=== PATIENT | male | born 1955 | race Caucasian/White ===

== ENCOUNTER → 2019-03-18 11:00 | Outpatient (CLI) | payer MEDICARE, OTHER, SELFPAY ==
--- NOTE | ~2019-03-18 | CT_ITS ---
EXAMINATION: CT lumbar spine wo con DATE: 03/18/2019 11:41 INDICATION: Low back pain. Lumbar scoliosis. TECHNIQUE: Computed tomography (CT) of the lumbar spine was performed without intravenous contrast. A utomated exposure control and iterative reconstruction technique were employed. The dose-length produ ct was 1199.63 mGy-cm. COMPARISON: CT lumbar spine 02/28/2017 FINDINGS: There is 20 degrees dextroscoliosis of lumbar spine. S1 is a transitional segment. There ar e changes of posterior fusion procedure from T11 to S1 and the bilateral iliac bones with pedicle scr ews and iliac bone screws. The right S1 screw enters the L5-S1 disc. There are laminectomies from L3 to L5. There is interbody fusion at L3-L4. There is severely decreased disc height at L2-L3 and L4-L5 . The following disc levels are specifically discussed: L1-L2: The disc is bulging. There is mild bilateral facet joint hypertrophy. There is mild bilateral neural foraminal stenosis. There is no central canal stenosis. L2-L3: The disc is bulging. There is mild bilateral facet joint hypertrophy. There is mild bilateral neural foraminal stenosis. There is mild central canal stenosis. L3-L4: There is moderate bilateral facet joint hypertrophy. There is mild right and moderate left fredi ral foraminal stenosis. There is mild central canal stenosis with posterior decompression. L4-L5: The disc is bulging. There is moderate right facet joint hypertrophy. There is moderate right neural foraminal stenosis. There is mild central canal stenosis with posterior decompression. L5-S1: The disc is bulging. There is moderate bilateral facet joint hypertrophy. There is mild bilate ral neural foraminal stenosis. There is mild central canal stenosis. IMPRESSION: 1. Severe lumbar spondylosis. 2. Posterior fusion procedure from T11 to the sacrum and iliac bones. 2. Lumbar dextroscoliosis. Reviewed, dictated and finalized at location A. [facility]
== END ==
PROVIDERS: PCP Internal Medicine
DX: M41.9 Scoliosis, unspecified (principal); M47.896 Other spondylosis, lumbar region; Z98.1 Arthrodesis status
CPT/HCPCS: 72131

== ENCOUNTER 2019-04-21 01:20 | Day surgery (SDC) | payer MEDICARE, OTHER, SELFPAY ==
[2019-04-16 14:45] VITALS: BMI 27.8
[2019-04-21 06:56] VITALS: BP 160/87; PULSE 74; RESP 6; TEMP 36.7; O2SAT 100
[2019-04-21] MEDS: LACTATED RINGERS 1,000 ML 150 ML IV CONT (07:15)
[2019-04-21] MEDS: AMPICILLIN 2 GM/NS 100 ML 2 GM/100 ML BAG IVPB (07:15)
--- NOTE | 2019-04-21 07:30 | WPDANESEPPF ---
Anes - Initial Pre Proc Eval Procedure: Operation Date: 04/21/19 08:00 Proposed Procedures p Colonoscopy - Ezekiel Key MD Date/Time: 04/21/19 07:30 Surgeon: Ezekiel Key MD Pre Op Diagnosis: change in bowel habits, abd pain Patient Data Age: 64 Gender: M Height: 5 ft 10 in Weight: 91.2 kg Last Vital Signs Temp 36.7 C 04/21/19 06:56 Pulse 74 04/21/19 06:56 Resp 6 L 04/21/19 06:56 BP 160/87 H 04/21/19 06:56 Pulse Ox 100 04/21/19 06:56 Allergies Allergy/AdvReac Type Severity Reaction Status Date / Time No Known Allergies Allergy Verified 04/21/19 06:56 Home Medications Medication Instructions Recorded Confirmed Type ezetimibe 10 mg tablet 10 mg PO DAILY #90 tablet 12/30/18 04/21/19 Rx gemfibrozil 600 mg tablet 600 mg PO BID #180 tablet 12/30/18 04/21/19 Rx aspirin 81 mg tablet,delayed 81 mg PO DAILY 01/01/19 04/21/19 History release folic acid 0.8 mg capsule 0.8 mg PO DAILY 01/01/19 04/21/19 History gabapentin 400 mg capsule 400 mg PO DAILY 01/01/19 04/21/19 History hydroxychloroquine 200 mg tablet 200 mg PO DAILY 01/01/19 04/21/19 History levothyroxine 25 mcg tablet 25 mcg PO DAILY 01/01/19 04/21/19 History methotrexate sodium 2.5 mg tablet 2.5 mg PO WEEKLY 01/01/19 04/21/19 History multivitamin 1 tablet PO DAILY 01/01/19 04/21/19 History nortriptyline 25 mg capsule 25 mg PO DAILY 01/01/19 04/21/19 History omeprazole 10 mg capsule,delayed 10 mg PO DAILY 01/01/19 04/21/19 History release sulfasalazine 500 mg tablet 0.5 gm PO DAILY 01/01/19 04/21/19 History trazodone 50 mg tablet 50 mg PO TID 01/01/19 04/21/19 History baclofen 10 mg tablet 10 mg PO DAILY 02/12/19 04/21/19 History tamsulosin 0.4 mg capsule 0.4 mg PO DAILY #90 cap 02/12/19 04/21/19 Rx diclofenac sodium 75 mg 75 mg PO BID #180 tablet 03/06/19 04/21/19 Rx tablet,delayed release Patient hx anesthesia problems: none Family hx anesthesia problems: none PMFSH Past Medical History Medical History (Updated 04/21/19 @ 07:31 by Osorio Ibarra MD) Acid reflux Depression HTN (hypertension) Hyperlipidemia Surgical History Surgical History History of carpal tunnel release R hand History of hernia surgery History of left knee replacement History of right knee joint replacement History of rotator cuff surgery Right History of spinal fusion L3-L5 x2 S1-S10 Family History Family History Sibling Family history of drug dependence Patient's sister is in good health Father Hypertension Cerebrovascular accident Grandparent Carcinoma of colon Mother Family history of malignant neoplasm of esophagus Other Family history of arthritis Social History Social History Smoking status: Never smoker Second hand tobacco smoke exposure: No Alcohol intake: current Gender identity (if verbalized by the patient): Female Anes - Eval Final PreProcedure Day of Procedure 04/21/19 07:30 Patient weight: overweight Heart: regular rate and rhythm Lungs: clear to auscultation Airway: Mallampati scale class 1 Neurological: alert and oriented Last oral intake: >/= 8 hours ASA classification: III Emergent: no Anesthetic plan: proceed Anesthesia type and monitoring: general GIVS and standard monitoring Informed Consent: The patient's anesthetic plan and its attendant risks and benefits were discussed with the patient/family/POA. Questions were solicited and answers provided to the satisfaction of the patient/family/POA.
--- NOTE | 2019-04-21 07:50 | WPDGICN ---
Assessment and Plan Additional Plan This is a 64-year-old white male patient seen in evaluation at the request of Dr. Arian Rose. Patient reports stomach ache worse over the last 2-3 months. Patient has history of ascending colon stricture identified 1 year ago. He subsequently had a lower GI that failed to identified the stricture. Patient has been treated for constipation for quite some time. After colonoscopy 1 year ago he did well with conservative therapy over the last 2-3 months has increasing lower abdominal pain. He continues to have lower abdominal cramping and constipation. He reports his stools are somewhat narrowing appearance ani feels bloated. Past medical history is significant for GE reflux, depression, hypertension, hyperlipidemia. Family history is significant his grandfather apparent had colon cancer. His mother had esophageal cancer. Current medications include baclofen, aspirin, diclofenac, ezetimibe, folic acid, gabapentin, gemfibrozil, hydrochloroquine, levothyroxine. Omeprazole, nortriptyline, sulfasalazine, tamsulosin, no known drug allergies. Physical exam reveals patient to be alert. Vital signs stable. HEENT exam unremarkable. Lungs are clear to auscultation percussion. Heart is without murmur extra sounds. Abdominal exam bowel sounds are present soft no obvious masses. Is not distended. He reports vague low abdominal discomfort. Impression 1. Abdominal pain, 2. Constipation. With change in bowel habits. 3. History of ascending colon stricture. Plan is for follow-up colonoscopy. Recent barium enema failed to confirm ascending colon stricture plan is to reassess this finding as well search for alteration in bowel habits change in bowel size and abdominal pain. Further recommendations will be given after endoscopy GI Consult Note Consult date/time: 04/21/19 07:50 HPI: Tyler Ferrara is a 64 year old male [facility] Past Medical History Medical History (Updated 04/21/19 @ 07:31 by Osorio Ibarra MD) Acid reflux Depression HTN (hypertension) Hyperlipidemia Surgical History Surgical History History of carpal tunnel release R hand History of hernia surgery History of left knee replacement History of right knee joint replacement History of rotator cuff surgery Right History of spinal fusion L3-L5 x2 S1-S10 Family History Family History Sibling Family history of drug dependence Patient's sister is in good health Father Hypertension Cerebrovascular accident Grandparent Carcinoma of colon Mother Family history of malignant neoplasm of esophagus Other Family history of arthritis Social History Social History Smoking status: Never smoker Second hand tobacco smoke exposure: No Alcohol intake: current Gender identity (if verbalized by the patient): Female Meds Home Medications and Allergies Home Medications Medication Instructions Recorded Confirmed Type ezetimibe 10 mg tablet 10 mg PO DAILY #90 tablet 12/30/18 04/21/19 Rx gemfibrozil 600 mg tablet 600 mg PO BID #180 tablet 12/30/18 04/21/19 Rx aspirin 81 mg tablet,delayed 81 mg PO DAILY 01/01/19 04/21/19 History release folic acid 0.8 mg capsule 0.8 mg PO DAILY 01/01/19 04/21/19 History gabapentin 400 mg capsule 400 mg PO DAILY 01/01/19 04/21/19 History hydroxychloroquine 200 mg tablet 200 mg PO DAILY 01/01/19 04/21/19 History levothyroxine 25 mcg tablet 25 mcg PO DAILY 01/01/19 04/21/19 History methotrexate sodium 2.5 mg tablet 2.5 mg PO WEEKLY 01/01/19 04/21/19 History multivitamin 1 tablet PO DAILY 01/01/19 04/21/19 History nortriptyline 25 mg capsule 25 mg PO DAILY 01/01/19 04/21/19 History omeprazole 10 mg capsule,delayed 10 mg PO DAILY 01/01/19 04/21/19 History release sulfasalazine 500 mg tablet 0
[2019-04-21 08:36] VITALS: BP 128/81; PULSE 71; RESP 15; O2SAT 97
[2019-04-21 08:46] VITALS: BP 139/89; PULSE 68; RESP 14; O2SAT 95
[2019-04-21 08:56] VITALS: BP 134/82; PULSE 64; RESP 18; O2SAT 99
== END 2019-04-21 09:17 | disposition home or self-care (01) ==
PROVIDERS: PCP Internal Medicine; Visit Provider Internal Medicine Gastroenterology
PROC: 0DJD8ZZ Inspection of Lower Intestinal Tract, Via Natural or Artificial Opening Endoscopic (ICD-10-PCS; CPT 45378; principal; 2019-04-21 08:00)
DX: K63.3 Ulcer of intestine (principal); K56.699 Other intestinal obstruction unspecified as to partial versus complete obstruction; K59.00 Constipation, unspecified; I10 Essential (primary) hypertension; E78.5 Hyperlipidemia, unspecified; K21.9 Gastro-esophageal reflux disease without esophagitis; F32.9 Major depressive disorder, single episode, unspecified; Z79.82 Long term (current) use of aspirin; Z98.1 Arthrodesis status
CPT/HCPCS: 45380; 88305; J0290; J2001; J2704; J7120

== ENCOUNTER → 2019-05-13 10:28 | Outpatient (CLI) | payer MEDICARE, OTHER, SELFPAY ==
--- NOTE | ~2019-05-13 | CT_ITS ---
EXAMINATION: CT abdomen pelvis w con EXAM DATE: 05/13/2019 11:23 INDICATION: Generalized abdominal pain and bloating. TECHNIQUE: Spiral CT of the abdomen and pelvis was performed following intravenous injection of 100 m L Omnipaque 350. Axial, coronal and sagittal images were reviewed. The dose-length product (DLP) fo r this examination was 845.61 mGy-cm. The exposure was tailored according to patient size (auto mA e xposure control), and iterative reconstruction (ASIR) was used as additional dose reduction technique . Comparison is made to prior examination from 10/09/2017. FINDINGS: The liver, spleen, adrenal glands and pancreas are unremarkable. Gallbladder is unremarkab le. No biliary obstruction. Portal and splenic veins are patent. Kidneys enhance symmetrically. T here is no hydronephrosis. The prostate is unremarkable. The bladder is unremarkable. There is no retroperitoneal or pelvic lymphadenopathy. There is mild scattered arteriosclerotic disease. The appendix is normal. The stomach and small bowel are unremarkable. There is moderate amount of c olonic stool. No free intraperitoneal gas. The heart is normal in size. There are no pericardial or pleural effusions. The lung bases are unremarkable. Approximately 1 cm left femoral neck sclero tic region is unchanged compared to prior study. There is thoracolumbar fusion hardware. IMPRESSION: 1. Moderate colonic stool. 2. No acute findings. Reviewed, dictated and finalized at location B.
[2019-05-13 11:08] LABS: Estimated Glomerular Filt Rate > 60
== END ==
DX: R10.84 Generalized abdominal pain (principal)
CPT/HCPCS: 36415; 74177; Q9967

== ENCOUNTER 2019-05-27 09:53 | Observation (INO) | payer MEDICARE, OTHER, SELFPAY ==
[2019-05-27] VITALS (32 sets, daily range): BP systolic 120–154; BP diastolic 54–98; PULSE 57–90; RESP 11–27; TEMP 36.1–36.9; O2SAT 98–100; BMI 30.9
--- NOTE | 2019-05-27 10:12 | PC.NURSE ---
PT STATES HAS HIS NORMAL 6 MONTH LAB WORK YESTERDAY. STATES LAST DRAW 6 MONTHS AGO WAS BORDERLINE NORMAL. HAS SEEN DR. HAWK IN THE PAST FOR STRICTURES. HAD COLONOSCOPY NOT TOO LONG AGO AND WAS NORMAL. PT NOTING DIZZINESS WHEN STANDING AND INCREASED SOB. PT NOTING DARK STOOLS AT TIMES. PT DENIES ABD PAIN AT THIS TIME. DOES C/O SOME TO RLQ FROM TIME TO TIME.
[2019-05-27 10:26] LABS: Basophils Percent Auto 0.6 % (0.2-1.2); Eosinophils Absolute Auto 0.2 K/mm3 (0-0.3); Hemoglobin 7.5 g/dL (14.0-18.0); Immature Granulocyte Absolute 0.03 K/mm3 (0.00-0.031); Immature Granulocyte Percent A 0.6 % (0-0.5); Lymphocytes Absolute Auto 0.63 K/mm3 (0.9-3.2); Lymphocytes Percent Auto 12.5 % (18.3-44.2); Mean Corpuscular HGB Conc 28.8 g/dl (32-36); Mean Corpuscular Hemoglobin 22.7 pg (26-34); Mean Corpuscular Volume 78.8 fl (80-100); Mean Platelet Volume 10.8 fl (7.4-10.4); Monocytes Absolute Auto 0.7 K/mm3 (0.1-0.6); Monocytes Percent Auto 12.9 % (2.6-8.5); Neutrophils Absolute Auto 3.6 K/mm3 (1.3-6.7); Neutrophils Percent Auto 70.4 % (45.5-73.1); Platelet Count Result 237 k/mm3 (150-375); Red Cell Distribution Width 19.4 % (11.5-14.5)
--- NOTE | 2019-05-27 10:28 | ED.RECABL ---
HPI - Recheck/Abnormal Lab/Rx General Chief Complaint: Recheck/Abnormal Lab/Rx Stated Complaint: LOW H/H Time Seen by Provider: 05/27/19 09:58 History of Present Illness HPI narrative: Patient is a 64-year-old male who presents ER with outpatient diagnosis of anemia. He had routine labs drawn and they came back with a low hemoglobin so he was sent here for further evaluation. Patient has history of rheumatoid arthritis and takes methotrexate weekly. Denies any history of GI bleed and has recently had a scope by Dr. Key. The scope was significant for a sending colon stricture that was biopsied and noncancerous. Patient reports that he has been having some dyspnea on exertion that has been slowly progressive over the course of months. He has had no chest pain or pressure. He also reports he is starting to get a little dizzy when he goes from sitting to standing. Reports normal oral intake. Related Data Home Medications Medication Instructions Recorded Confirmed aspirin 81 mg tablet,delayed 81 mg PO DAILY 01/01/19 04/21/19 release folic acid 0.8 mg capsule 0.8 mg PO DAILY 01/01/19 04/21/19 gabapentin 400 mg capsule 400 mg PO DAILY 01/01/19 04/21/19 hydroxychloroquine 200 mg tablet 200 mg PO DAILY 01/01/19 04/21/19 levothyroxine 25 mcg tablet 25 mcg PO DAILY 01/01/19 04/21/19 methotrexate sodium 2.5 mg tablet 2.5 mg PO WEEKLY 01/01/19 04/21/19 multivitamin 1 tablet PO DAILY 01/01/19 04/21/19 nortriptyline 25 mg capsule 25 mg PO DAILY 01/01/19 04/21/19 omeprazole 10 mg capsule,delayed 10 mg PO DAILY 01/01/19 04/21/19 release sulfasalazine 500 mg tablet 0.5 gm PO DAILY 01/01/19 04/21/19 trazodone 50 mg tablet 50 mg PO TID 01/01/19 04/21/19 Allergies Allergy/AdvReac Type Severity Reaction Status Date / Time No Known Allergies Allergy Verified 05/27/19 10:10 Review of Systems Review of Systems: All systems reviewed & are unremarkable except as noted in HPI and below Constitutional: Constitutional: Denies chills, Denies fever(s) and Reports weakness ENT: Denies nasal congestion and Denies sore throat Cardiovascular: Cardiovascular: Denies chest pain and Denies radiating jaw, neck or arm pain Respiratory: Respiratory: Denies cough, Reports dyspnea and Denies wheezing Gastrointestinal: Gastrointestinal: Denies abdominal pain, Denies nausea and Denies vomiting PMFSH Past Medical History Medical History (Updated 05/27/19 @ 15:15 by Lew Sauceda MD) Acid reflux Depression HTN (hypertension) Hyperlipidemia Social History Social History Smoking status: Never smoker Second hand tobacco smoke exposure: No Alcohol intake: current Gender identity (if verbalized by the patient): Female Exam Narrative: Exam Narrative: GENERAL: Well-appearing, well-nourished, and in no acute distress. HEAD: Normocephalic, atraumatic. EYES: PERRL and EOMI. ENT:Mucous membranes moist. CHEST: Clear to auscultation. No respiratory distress. HEART: Regular rate and rhythm. Normal peripheral pulses. ABDOMEN: Soft, nontender, nondistended, guaiac negative stool on HERMAN. EXTREMITIES: Normal range of motion. No edema. SKIN: Warm, dry, pale, no rash. NEURO: Alert and oriented x3. PSYCH: Normal mood and affect. Course Course Emergency Course: Patient informed of results. Discussed with Dr. Paris feels this is consistent with iron deficiency anemia and not related to his medications. Would recommend TID iron as well as some vitamin C daily. Discussed with patient's PCP he feels patient is a better candidate for inpatient iron infusion due to his stricture, apparently the colonoscopy camera could only barely make it through the stricture and so significant fecal impaction could be quite detrimental to this patient. Patient has been accepted by the hospitalist service. Vital Signs Vital signs: Vital Signs Temperature 98.5 F 05/27/19 09:53 Pulse Rate 90 05/27/19
[2019-05-27 10:36] LABS: INR 0.9; Prothrombin Time 12.3 Seconds (11.1-14.7)
[2019-05-27 10:37] LABS: Partial Thromboplastin Time 32.6 SECONDS (22.3-36.8)
[2019-05-27 10:39] LABS: Alanine Aminotransferase 16 U/L (4-50); Albumin Level 3.9 g/dL (3.5-5.1); Alkaline Phosphatase 80 U/L (38-126); Aspartate Amino Transferase 36 U/L (17-59); Bilirubin,Total 0.3 mg/dL (0.2-1.3); Blood Urea Nitrogen 12 mg/dL (9-20); Calcium 8.7 mg/dL (8.4-10.2); Carbon Dioxide 26 mmol/L (22-30); Chloride 98 mmol/L (98-107); Estimated CRCL calculation 67 ml/min; Estimated Glomerular Filt Rate > 60; Glucose 108 mg/dL (75-110); Sodium 130 mmol/L (137-145)
[2019-05-27 10:41] LABS: Anisocytosis 1+ (NORMAL); Hypochromasia 1+ (NORMAL); Platelet Estimate Adequate (Adequate)
[2019-05-27 10:54] LABS: Iron 70 ug/dL (49-181)
[2019-05-27 11:03] LABS: Percent Iron Saturation 17 % (20-50)
[2019-05-27 11:31] LABS: Ferritin 8.74 ng/mL (11.1-264)
[2019-05-27 12:27] LABS: Folic Acid > 20.0 ng/mL (2.76->20)
--- NOTE | 2019-05-27 15:20 | ADMGEN ---
This patient, Tyler Ferrara, was admitted to 2 Medical Room 241-. Patient/family oriented to hospital policies and general routines including ID bracelet, bed and alarms, visiting hours, pain management, procedures, bathroom and other care routines, personal items, smoking policy, room service/diet, and visiting hours. Valuables list has been completed. Information on how to activate the Rapid Response Team has been discussed. Patient/Family are encouraged to report perceived risks to care and to ask questions if they do not understand what they are told or what they should do.
--- NOTE | 2019-05-27 19:00 | PM.IMHP ---
H&P: HPI History of Present Illness Chief complaint: Low hemoglobin. Narrative: Tyler Ferrara is a 64-year-old male with history of colonic stricture, rheumatoid arthritis, GERD, hypothyroidism, and history of chronic anemia requiring blood transfusion who presented to the emergency department earlier this morning via private vehicle from home with a complaint of ?low hemoglobin.? For the last week and a half he notes dyspnea on exertion, dizziness, weakness, and easy fatigability when going up a flight of steps. He had a virtual visit with his primary care provider who ordered lab work which was done yesterday. Today he received a phone call that he needed to come to the hospital as he was anemic. As mentioned, he has a history of ascending colon stricture, and fact he had a recent colonoscopy on April 21, [address] Key for evaluation of ongoing abdominal pain (reportedly daily pain, described as sharp and in the lower abdomen) and change in bowel habits (frequent constipation, occasional pencil thin stools). A circumferential stricture of the mid ascending colon with ulceration was noted, with inability to pass the endoscope any further. He was told to follow a low residue diet and he was referred to Dr. Rivera at [place] for surgical consideration. He did meet with that physician, but there have been no definitive plans put in place, which is somewhat frustrating to the patient. He has not noticed any significant blood loss and he specifically denies epistaxis, melena, hematochezia, and hematuria. No significant GERD or indigestion. No fever, chills, or sweats. He denies chest pain. No cough or resting shortness of breath. Review of Systems Review of Systems: Narrative: Were reviewed with pertinent positives and negatives as per HPI. Except as documented, all other systems were reviewed and are negative. [facility] Past Medical History Medical History (Updated 05/27/19 @ 23:53 by Brandy Burrows PA-C) Basal cell carcinoma Benign prostatic hyperplasia Chronic anemia With history of blood transfusion. Chronic hyponatremia Chronic rhinosinusitis Degenerative disc disease Degenerative joint disease Depression Dyslipidemia GERD (gastroesophageal reflux disease) With history of esophageal webs and reflux esophagitis noted on EGD October [address] Key. Hypertension Hypothyroidism Moderate obstructive sleep apnea Noted on sleep study in July 2013, however the patient denies having sleep apnea. Peripheral neuropathy Mainly affecting the feet. Rheumatoid arthritis On methotrexate. Shingles (~2012) Stricture of ascending colon Surgical History Surgical History (Updated 05/27/19 @ 23:48 by Brandy Burrows PA-C) History of arthroscopy of both shoulders History of carpal tunnel release Right. History of inguinal herniorrhaphy Indirect inguinal hernia repair with mesh in December [address] Raymundo. History of left knee replacement History of right knee joint replacement Ox word right partial medial compartment replacement in August [address] Khanna. History of rotator cuff surgery Right History of spinal fusion L3-L5 x2 T10-S1 History of surgical removal of ganglion cyst History of tonsillectomy Family History Family History Sibling Family history of drug dependence Patient's sister is in good health Father Hypertension Cerebrovascular accident Grandparent Carcinoma of colon Mother Family history of malignant neoplasm of esophagus Other Family history of arthritis Social History Social History (Updated 05/27/19 @ 23:49 by Brandy Burrows PA-C) Social History: The patient lives in [facility] with his . 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 He is a lifelong nonsmoker. No alcohol or drug abuse. His , Ksenia, is his surrogate decision maker and he wishes to be a full code. Spiritual
[2019-05-28] VITALS (10 sets, daily range): BP systolic 124–150; BP diastolic 72–93; PULSE 63–83; RESP 16–18; TEMP 36.3–36.9; O2SAT 98–100
[2019-05-28 06:11] LABS: Basophils Percent Auto 0.8 % (0.2-1.2); Eosinophils Absolute Auto 0.2 K/mm3 (0-0.3); Eosinophils Percent Auto 4.2 % (0-4.4); Hematocrit 24.2 % (42.0-52.0); Immature Granulocyte Absolute 0.02 K/mm3 (0.00-0.031); Immature Granulocyte Percent A 0.4 % (0-0.5); Lymphocytes Percent Auto 12.5 % (18.3-44.2); Mean Corpuscular HGB Conc 28.5 g/dl (32-36); Mean Corpuscular Hemoglobin 22.4 pg (26-34); Mean Corpuscular Volume 78.6 fl (80-100); Monocytes Absolute Auto 0.4 K/mm3 (0.1-0.6); Monocytes Percent Auto 7.3 % (2.6-8.5); Neutrophils Absolute Auto 3.6 K/mm3 (1.3-6.7); Neutrophils Percent Auto 74.8 % (45.5-73.1); Platelet Count Result 267 k/mm3 (150-375); Red Blood Count 3.08 M/mm3 (4.6-6.20); Red Cell Distribution Width 19.4 % (11.5-14.5); White Blood Count 4.8 K/mm3 (4.5-10.0)
[2019-05-28 06:29] LABS: Alanine Aminotransferase 14 U/L (4-50); Albumin Level 3.3 g/dL (3.5-5.1); Alkaline Phosphatase 66 U/L (38-126); Aspartate Amino Transferase 31 U/L (17-59); Bilirubin,Total 0.2 mg/dL (0.2-1.3); Blood Urea Nitrogen 9 mg/dL (9-20); Calcium 8.3 mg/dL (8.4-10.2); Carbon Dioxide 27 mmol/L (22-30); Chloride 101 mmol/L (98-107); Estimated CRCL calculation 84 ml/min; Estimated Glomerular Filt Rate > 60; Glucose 93 mg/dL (75-110); Potassium 4.2 mmol/L (3.4-5.0); Sodium 131 mmol/L (137-145)
[2019-05-28 06:56] LABS: Hemoglobin 6.9 g/dL (14.0-18.0)
[2019-05-28 06:57] LABS: Hypochromasia 1+ (NORMAL); Ovalocytes 1+ (NORMAL); Platelet Estimate Adequate (Adequate)
[2019-05-28] MEDS: SODIUM CHLORIDE 0.9% IV 250 ML 30 ML IV CONT (08:14)
[2019-05-28] MEDS: EZETIMIBE 10 MG TABLET PO (09:45)
[2019-05-28] MEDS: FOLIC ACID 1 MG TABLET PO (09:45)
[2019-05-28] MEDS: gemfibroziL 600 MG TABLET PO ×2 (09:45→16:07)
[2019-05-28] MEDS: GABAPENTIN 400 MG CAPSULE PO (09:45)
[2019-05-28] MEDS: HYDROXYCHLOROQUINE SULFATE 200 MG TABLET PO ×2 (09:46→16:07)
[2019-05-28] MEDS: MULTIVITAMINS THERAPEUTIC TAB (*BKC) 1 TABLET PO (09:46)
[2019-05-28] MEDS: NORTRIPTYLINE HCL 25 MG CAPSULE 50 MG PO (09:47)
[2019-05-28] MEDS: LEVOTHYROXINE SODIUM 50 MCG TABLET PO (09:47)
[2019-05-28] MEDS: TAMSULOSIN HCL 0.4 MG CAPSULE PO (09:47)
[2019-05-28 11:17] LABS: Free T4 Free Thyroxine Reflex 0.85 ng/dL (0.78-2.19)
[2019-05-28 14:00] LABS: Total Triiodothyronine (T3) 1.19 NG/ML (0.97-1.69)
--- NOTE | 2019-05-28 14:22 | PM.IMPN ---
Progress Note: A&P Assessment and Plan (1) Acute on chronic anemia: Code(s): D64.9 - Anemia, unspecified Status: Acute Assessment and Plan: Patient has not had labs at this facility for nearly 1 year, but at that time hemoglobin was 10.3. Hgb lowered to 6.9 this morning; subsequently transfused 2 u pRBCs today. Patient denies any signs of blood loss, particularly GI. Stool guaiac negative in ER; possible slow chronic bleeding? Will continue with IV venofer today and tomorrow morning Monitor H&H today and tomorrow morning If stable anticipate discharge in 1-2 days. Avoid oral iron given his stricture (2) Chronic hyponatremia: Code(s): E87.1 - Hypo-osmolality and hyponatremia Status: Acute Assessment and Plan: Sodium today is 131 and he appears euvolemic. For now will just continue to monitor. (3) Hypertension: Code(s): I10 - Essential (primary) hypertension Status: Acute Assessment and Plan: Blood pressures were reviewed and they are reasonably well controlled. 140s sys today Continue antihypertensives and monitor daily. (4) Hypothyroidism: Code(s): E03.9 - Hypothyroidism, unspecified Status: Acute Assessment and Plan: Continue levothyroxine. (5) Rheumatoid arthritis: Code(s): M06.9 - Rheumatoid arthritis, unspecified Status: Acute Assessment and Plan: Patient on methotrexate weekly. Patient also takes diclofenac; will hold in light of his anemia. (6) Stricture of ascending colon: Code(s): K56.699 - Other intestinal obstruction unspecified as to partial versus complete obstruction Status: Acute Assessment and Plan: Patient is following with Dr. Rivera at [place]. Attempted to contact his office today, but have not heard back. Instructed patient to also reach out to his office for further information Subjective Date/time seen: 05/28/19 14:22 Interval history: Patient is a 64 yo M with history of colonic stricture, rheumatoid arthritis, GERD, hypothyroidism, and history of chronic anemia requiring blood transfusion who is here for reports of low hemoglobin from PCP. Patient states he feels okay today. He is anxious to leave. Patient received 2 u pRBCs today due to critical values. Patient continues to have cramping abdominal pain in RLQ occasionally, but states this has been going on for months . He is unsure when he is to follow up with Dr. Rivera from [facility] in regards to his known colonic stricture and requests me to call his office; attempted to contact his office and left a voicemail but no return call. He has been having CACERES an dizziness and thigh muscle pains. Occasionally has chills, but no subjective/objective fevers. Otherwise patient has no other complaints. Denies headaches,changes in v/h, cp/palpitations, cough, n/v/d/c, changes in BMs, melena, brbpr, dysuria, hematuria, cloudy urine, calf pain/swelling. Review of Systems Review of Systems: All systems reviewed & are unremarkable except as noted in HPI and below Exam Narrative: Exam Narrative: Patient is lying in semi-jaquez's position at time of visit Const: General: cooperative, comfortable, no acute distress, well developed and alert Nutritional Appearance: well nourished Orientation/consciousness: patient oriented x3 HENMT: Head: normocephalic and atraumatic General nose exam: Normal nares present Face and sinus: face symmetric Mouth: Yes tongue normal Throat: posterior oropharynx normal and uvula midline Eyes: General: appearance normal, both eyes and all related structures Conjunctivae: other (pallor) Pupils: Equal, round
[2019-05-28 16:30] LABS: Hemoglobin 9.6 g/dL (14.0-18.0)
[2019-05-28] MEDS: MELATONIN 3 MG TABLET PO (21:28)
[2019-05-28] MEDS: ACETAMINOPHEN 325 MG TABLET 650 MG PO (21:29)
[2019-05-28] MEDS: TRAZODONE HCL 50 MG TABLET 150 MG PO (21:29)
[2019-05-29 05:53] LABS: Hematocrit 29.1 % (42.0-52.0); Hemoglobin 8.7 g/dL (14.0-18.0); Mean Corpuscular HGB Conc 29.9 g/dl (32-36); Mean Corpuscular Hemoglobin 23.7 pg (26-34); Mean Corpuscular Volume 79.3 fl (80-100); Mean Platelet Volume 10.4 fl (7.4-10.4); Platelet Count Result 275 k/mm3 (150-375); Red Blood Count 3.67 M/mm3 (4.6-6.20); Red Cell Distribution Width 18.6 % (11.5-14.5); White Blood Count 4.2 K/mm3 (4.5-10.0)
[2019-05-29] MEDS: LEVOTHYROXINE SODIUM 50 MCG TABLET PO (05:57)
[2019-05-29 06:00] VITALS: BP 119/66; PULSE 64; RESP 16; TEMP 36.4; O2SAT 99
[2019-05-29 06:05] LABS: Alanine Aminotransferase 14 U/L (4-50); Albumin Level 3.5 g/dL (3.5-5.1); Alkaline Phosphatase 70 U/L (38-126); Aspartate Amino Transferase 29 U/L (17-59); Bilirubin,Total 0.3 mg/dL (0.2-1.3); Blood Urea Nitrogen 10 mg/dL (9-20); Calcium 8.4 mg/dL (8.4-10.2); Carbon Dioxide 24 mmol/L (22-30); Chloride 103 mmol/L (98-107); Estimated CRCL calculation 94 ml/min; Estimated Glomerular Filt Rate > 60; Glucose 99 mg/dL (75-110); Sodium 134 mmol/L (137-145)
[2019-05-29] MEDS: HYDROXYCHLOROQUINE SULFATE 200 MG TABLET PO (08:20)
[2019-05-29] MEDS: gemfibroziL 600 MG TABLET PO (08:20)
[2019-05-29] MEDS: EZETIMIBE 10 MG TABLET PO (08:21)
[2019-05-29] MEDS: GABAPENTIN 400 MG CAPSULE PO (08:21)
[2019-05-29] MEDS: MULTIVITAMINS THERAPEUTIC TAB (*BKC) 1 TABLET PO (08:21)
[2019-05-29] MEDS: TAMSULOSIN HCL 0.4 MG CAPSULE PO (08:21)
--- NOTE | 2019-05-29 08:21 | PM.DS ---
DS: Diagnosis Admitting Diagnosis Admitting Diagnosis: Anemia, unspecified Discharge Diagnosis (1) Acute on chronic anemia: Code(s): D64.9 - Anemia, unspecified Status: Acute Assessment and Plan: Patient has not had labs at this facility for nearly 1 year, but at that time hemoglobin was 10.3. Hgb stable at 8.7 this morning after 2u p RBC transfusions yesterday. Patient denies any rectal bleeding, melena, although no BMs; passing flatus. No other signs/symptoms of bleeding. Stool guaiac negative in ER; possible slow chronic bleeding? Will continue with IV venofer today D/c home today with H&H on Sunday F/u with PCP and with Dr. Rivera Recommended patient possibly present to a facility Dr. Rivera services should this potentially arise again prior to his f/u (2) Chronic hyponatremia: Code(s): E87.1 - Hypo-osmolality and hyponatremia Status: Acute Assessment and Plan: Sodium today is 134 and he appears euvolemic. For now will just continue to monitor. (3) Hypertension: Code(s): I10 - Essential (primary) hypertension Status: Acute Assessment and Plan: Blood pressures were reviewed and they are reasonably well controlled. 110s sys today Continue antihypertensives and monitor daily. (4) Hypothyroidism: Code(s): E03.9 - Hypothyroidism, unspecified Status: Acute Assessment and Plan: Continue levothyroxine. (5) Rheumatoid arthritis: Code(s): M06.9 - Rheumatoid arthritis, unspecified Status: Acute Assessment and Plan: Patient on methotrexate weekly. Patient also takes diclofenac; will hold in light of his anemia. (6) Stricture of ascending colon: Code(s): K56.699 - Other intestinal obstruction unspecified as to partial versus complete obstruction Status: Acute Assessment and Plan: Patient is following with Dr. Rivera at [facility]. Attempted to contact his office yesterday, but have not heard back. Instructed patient to also reach out to his office for further information and for f/u DS: Summary Hospital Course Reason for hospitalization: Acute on chronic anemia, possibly slow, ongoing GI blood loss Hospital Course: Patient is a 64 yo M with history of known colonic stricture, rheumatoid arthritis, GERD, hypothyroidism, and history of chronic anemia requiring blood transfusion who presented to the emergency department on morning of 05/26 via private vehicle from home with a complaint of ?low hemoglobin.? For the previous week and a half, patient noted dyspnea on exertion, dizziness, weakness, and easily fatigued when climbing stairs. He had a virtual visit with his PCP who ordered lab work performed on previous day which showed worsened anemia; his PCP contacted him instructing him to proceed to the ER for evaluation. Patient had colonoscopy in 04/[address] Key finding a colonic stricture with ulceration; he was referred to Dr. Rivera at [facility] for surgical consideration which he met with him, but no definite decision had been made yet. While in the ER, patient was found to have a hemoglobin of 7.5 and stool occult negative. Please see H&P for further details Presenting VS: Temp Pulse Resp BP Pulse Ox 98.5 F 90 16 135/92 H 98 05/27/19 09:53 05/27/19 09:53 05/27/19 09:53 05/27/19 09:53 05/27/19 09:53 Presenting Pertinent labs: H&H 7.5/26.0, MCV 78.8, NA 130, iron 70, TIBC 404, % sat 17, ferritin 8.74, folate >20. CBC, coag, chemistry otherwise unremarkable Micro: none Imaging: none ECG: none Patient was admitted to the hospitalist service for further IV venofer infusions and observation for worsened chronic
[2019-05-29] MEDS: FOLIC ACID 1 MG TABLET PO (08:22)
[2019-05-29] MEDS: NORTRIPTYLINE HCL 25 MG CAPSULE 50 MG PO (08:22)
== END 2019-05-29 10:20 | disposition home or self-care (01) ==
LOC: ANHED 10:25 → ANH2MED 14:07
PROVIDERS: Physician Assistant; Admitting Provider Internal Medicine; Emergency Provider Emergency Medicine; PCP Internal Medicine; Visit Provider Physician Assistant
DX: D64.9 Anemia, unspecified (principal); E87.1 Hypo-osmolality and hyponatremia; I10 Essential (primary) hypertension; E03.9 Hypothyroidism, unspecified; M06.9 Rheumatoid arthritis, unspecified; K56.699 Other intestinal obstruction unspecified as to partial versus complete obstruction; K21.9 Gastro-esophageal reflux disease without esophagitis; G47.33 Obstructive sleep apnea (adult) (pediatric); E78.5 Hyperlipidemia, unspecified; G62.9 Polyneuropathy, unspecified; N40.0 Benign prostatic hyperplasia without lower urinary tract symptoms; Z85.828 Personal history of other malignant neoplasm of skin; Z96.653 Presence of artificial knee joint, bilateral; Z98.1 Arthrodesis status
CPT/HCPCS: 36415; 36430; 80053; 82607; 82728; 82746; 83540; 83550; 83735; 84439; 84443; 84480; 85014; 85018; 85025; 85027; 85610; 85730; 86850; 86900; 86901; 86920; 96365; 96366; 99285; A9270; G0378; J1756; J7050; P9016

== ENCOUNTER 2019-06-24 07:50 | Outpatient (CLI) | payer MEDICARE, OTHER, SELFPAY ==
--- NOTE | ~2019-06-24 | US_ITS ---
EXAMINATION: US art doppler w press LE BI DATE: 06/24/2019 08:54 INDICATION: Peripheral vascular disease. Claudication. Lower limb pain, numbness and tingling. TECHNIQUE: Segmental pressures and plethysmographic and Doppler waveforms of the brachial and lower e xtremity arteries were obtained. COMPARISON: None. FINDINGS: Right and left brachial artery pressures of 126 mm Hg and 131 mm Hg, respectively, are concordant (no rmal difference <= 30 mmHg). The right and left high-thigh pressure indices are 1.34 and 1.21, respec tively (normal > 1.2). The right ankle-brachial index (BECK) is 1.21 (normal >= 0.9-1). The right great toe-brachial index (T BI) is 0.89 (normal >= 0.6-0.8). The right lower extremity segmental pressure gradients are normal (n ormal gradients <= 20-30 mmHg between adjacent levels on the same leg or the same levels on the two l egs). Arterial waveforms are biphasic at the right popliteal artery and triphasic at the remaining ar teries with brisk systolic upstrokes throughout. The left BECK is 1.21. The left TBI is 0.78. The left lower extremity segmental pressure gradients are normal. Arterial waveforms are triphasic at the left common femoral, superficial femoral and posteri or tibial arteries and biphasic at the left popliteal and dorsalis pedis arteries with brisk systolic upstrokes throughout. IMPRESSION: 1. Normal BECK's and TBI's bilaterally. No significant occlusive disease. Reviewed, dictated and finalized at location A.
--- NOTE | 2019-06-24 08:55 | ECHO_ITS ---
Patient Info Name: Tyler Ferrara Age: 64 years : 1955 Gender: Male Ht: 70 in Wt: 203 lbs BSA: 2.15 m2 HR: 61 bpm BP: 140 / 83 mmHg Technical Quality: Good Exam Date: 06/24/2019 8:56 AM Exam Location: [facility] Patient Status: Outpatient Admit Date: 06/24/2019 Staff Ordering Physician: Kale Rose DO [employer] Operator: Zulema Pizarro RDCS Attending Provider: Kale Rose DO Referring Physician: Milton FERRARA; Exam Type: CA echo doppler color flow Study Info Indications R06.00 - Dyspnea, unspecified Complete two-dimensional, color flow and Doppler transthoracic echocardiogram is performed. Summary 1. Left ventricular chamber dimension is mildly enlarged. 2. Left ventricular systolic function is normal, estimated at 60-65%. 3. There is mildly increased left ventricular wall thickness. 4. The left ventricular diastolic function is normal. 5. E/e' 9 is minimally elevated. 6. Global longitudinal strain is abnormal at -15.4%. 7. Left atrial chamber dimension is mildly enlarged. 8. There is mild mitral valve regurgitation. 9. There is trace tricuspid valve regurgitation. 10. No pulmonary hypertension, estimated pulmonary arterial systolic pressure is 24 mmHg. 11. There is mild pulmonic regurgitation. Left Ventricle E/e' 9 is minimally elevated. Global longitudinal strain is abnormal at -15.4%. Left ventricular chamber dimension is mildly enlarged. Left ventricular systolic function is normal, estimated at 60-65%. There is mildly increased left ventricular wall thickness. The left ventricular diastolic function is normal. Right Ventricle Right ventricular chamber dimension is normal. Right ventricular systolic function is normal. Left Atria Left atrial chamber dimension is mildly enlarged. Right Atria Right atrial chamber dimension is normal. Aortic Valve The aortic valve is trileaflet. There is no aortic valve stenosis. There is no aortic valve regurgitation. Pulmonic Valve There is mild pulmonic regurgitation. Mitral Valve There is no mitral valve stenosis. There is mild mitral valve regurgitation. Tricuspid Valve There is trace tricuspid valve regurgitation. No pulmonary hypertension, estimated pulmonary arterial systolic pressure is 24 mmHg. Pericardium/Pleural There is no pericardial effusion. Inferior Vena Cava Normal inferior vena cava with >50% collapse upon inspiration consistent with normal right atrial pressure, 5 mmHg. Aorta The aortic root size at the sinus of Valsalva is normal. Left Ventricular Outflow Tract Name Value Normal LVOT 2D LVOT Diameter 2.2 cm LVOT Doppler LVOT Peak Gradient 3 mmHg LVOT Mean Gradient 2 mmHg LVOT VTI 20 cm LVOT VTI/AV VTI Ratio 0.8 LVOT Stroke Volume 78 ml LVOT CO 4.3 l/min LVOT CI 2.0 l/min/m2 Pulmonic Valve
== END 2019-06-24 07:51 | disposition home or self-care (01) ==
PROVIDERS: PCP Internal Medicine; Visit Provider Internal Medicine
DX: I73.9 Peripheral vascular disease, unspecified (principal); R06.00 Dyspnea, unspecified; I34.0 Nonrheumatic mitral (valve) insufficiency; I37.1 Nonrheumatic pulmonary valve insufficiency
CPT/HCPCS: 93306; 93923

== ENCOUNTER 2019-08-01 11:19 | Emergency (ER) | payer MEDICARE, OTHER, SELFPAY ==
--- NOTE | ~2019-08-01 | CT_ITS ---
EXAMINATION: CT abdomen pelvis w con DATE: 08/01/2019 13:44 INDICATION: Abdominal pain. Recent colon resection July 22 TECHNIQUE: Computed tomography (CT) of the abdomen and pelvis was performed without intravenous contr ast. Automated exposure control and iterative reconstruction technique were employed. Exam dose: 645 .87 mGy-cm total exam DLP. COMPARISON: 05/13/2019 CT abdomen pelvis FINDINGS: There is some focal atelectasis with air bronchograms in the posterior and posterolateral l eft lung base. There are some linear atelectasis in the dependent right lower lobe. There are some li near atelectasis or scarring in the medial segment of the middle lobe. Normal heart size. Coronary artery calcification. No pericardial or pleural effusion. There is abnormal high density fluid around the liver and right paracolic gutter and in the lower abd omen and pelvis and minimally adjacent to the spleen. There are extensive gas bubbles in the intraper itoneal fluid collections, particularly in the right paracolic gutter. There is partial resection of the right colon. Bowel leakage is suspected, very possibly at the surgical site. Consider correlatio n with hemoglobin and hematocrit to evaluate for possible intraperitoneal bleeding. Surgical consult ation is recommended. The liver, gallbladder, bile ducts, spleen, pancreas, pancreatic duct, and adrenal glands and kidneys are unremarkable. There is atherosclerotic calcification of the abdominal aorta but no aneurysm. No intraperitoneal or retroperitoneal mass lesion or adenopathy is evident. Prostate enlargement and calcifications. Urinary bladder is unremarkable. No bowel obstruction. Status post posterior spinal fusion of the lower thoracic and lumbar spine. IMPRESSION: Extensive high density free fluid and intraperitoneal free air within the peritoneal cav ity, suggesting active bleeding and bowel perforation/ leak, very possibly at the surgical anastomoti c site in the right lower quadrant Surgical consultation is recommended. Consider hemoglobin and hematocrit determination to evaluate for possible active bleeding. Radionucli de gastrointestinal bleeding scan may be of assistance as well, as clinically appropriate. Dr. Gallego telephoned the report on 08/01/2019 at 1403 hours to Shara Velazco in the ER. Reviewed, dictated and finalized at [facility]. Reviewed, dictated and finalized at location A. IMPRESSION: Extensive high density free fluid and intraperitoneal free air wit hin the peritoneal cavity, suggesting active bleeding and bowel perforation/ le ak, very possibly at the surgical anastomotic site in the right lower quadrant Surgical consultation is recommended. Consider hemoglobin and hematocrit determination to evaluate for possible activ e bleeding. Radionuclide gastrointestinal bleeding scan may be of assistance as well, as clinically appropriate. Dr. Gallego telephoned the report on 08/01/2019 at 1403 hours to Shara Velazco in [facility] ER.
[2019-08-01 11:24] VITALS: BP 108/65; PULSE 88; RESP 16; TEMP 36.8; O2SAT 97
--- NOTE | 2019-08-01 11:45 | ED.ABDPAIN ---
HPI - Abdominal Pain General Chief Complaint: Abdominal Pain <Shara Velazco PA-C - Last Filed: 08/01/19 14:44> Stated Complaint: Abd pain; post-op bowel resection <Shara Velazco PA-C - Last Filed: 08/01/19 14:44> Time Seen by Provider: 08/01/19 11:31 <Shara Velazco PA-C - Last Filed: 08/01/19 14:44> Source: patient and family <DUNCAN Perdomo Last Filed: 08/01/19 14:44> Mode of arrival: ambulatory <DUNCAN Perdomo Last Filed: 08/01/19 14:44> Limitations: no limitations <DUNCAN Perdomo Last Filed: 08/01/19 14:44> History of Present Illness HPI narrative: This is a 64-year-old male that presents the emergency department for abdominal pain since last night. Reports acute worsening this morning. Reports he recently had a colon resection for a stricture on the of this month at [facility]. Postop course was complicated by intra-abdominal bleeding and anemia requiring blood transfusion. Reports he had been doing well since discharge home. Until last night when he started to have abdominal pain again. Also reports a fever this morning. He took Tylenol and oxycodone at home. Reports he had a small, formed stool this morning. Denies vomiting, dysuria, hematuria, diarrhea, or hematochezia. <DUNCAN Perdomo Last Filed: 08/01/19 14:44> Related Data Home Medications: Home Medications Medication Instructions Recorded Confirmed gabapentin 400 mg capsule 400 mg PO DAILY 01/01/19 05/27/19 hydroxychloroquine 200 mg tablet 200 mg PO BID 01/01/19 05/27/19 methotrexate sodium 2.5 mg tablet 20 mg PO WEEKLY 01/01/19 05/27/19 multivitamin 1 tablet PO DAILY 01/01/19 05/27/19 nortriptyline 25 mg capsule 50 mg PO DAILY 01/01/19 05/27/19 omeprazole 10 mg capsule,delayed 10 mg PO DAILY 01/01/19 05/27/19 release trazodone 50 mg tablet 150 mg PO HS 01/01/19 05/27/19 folic acid 1 mg PO DAILY 05/27/19 05/27/19 levothyroxine 50 mcg PO DAILY 05/27/19 05/27/19 sulfasalazine 1,000 mg PO BID 05/27/19 05/27/19 aspirin 81 mg PO DAILY 08/01/19 docusate sodium 100 mg PO BID 08/01/19 oxycodone 5 mg PO Q4H PRN 08/01/19 <Shara Velazco PA-C - Last Filed: 08/01/19 14:44> Allergies/Adverse Reactions: Allergies Allergy/AdvReac Type Severity Reaction Status Date / Time No Known Allergies Allergy Verified 08/01/19 11:28 <Shara Velazco PA-C - Last Filed: 08/01/19 14:44> Review of Systems Review of Systems: Narrative: CONSTITUTIONAL: Reports fever GASTROINTESTINAL: Reports abdominal pain. Denies nausea, vomiting, or diarrhea. GENITOURINARY: Denies dysuria or hematuria. <Shara Velazco PA-C - Last Filed: 08/01/19 14:44> All systems reviewed & are unremarkable except as noted in HPI and below <Shara Velazco PA-C - Last Filed: 08/01/19 14:44> [facility] Past Medical History Medical History: Medical History (Updated 08/01/19 @ 14:44 by Shara Velazco PA-C) Basal cell carcinoma Benign prostatic hyperplasia Chronic anemia With history of blood transfusion. Chronic hyponatremia Chronic rhinosinusitis Degenerative disc disease Degenerative joint disease Depression Dyslipidemia GERD (gastroesophageal reflux disease) With history of esophageal webs and reflux esophagitis noted on EGD October [address] Key. Hypertension Hypothyroidism Moderate obstructive sleep apnea Noted on sleep study in July 2013, however the patient denies having sleep apnea. Peripheral neuropathy Mainly affecting the feet. Rheumatoid arthritis On methotrexate. Shingles (~2012) Stricture of ascending colon <Shara Velazco PA-C - Last Filed: 08/01/19 14:44> Surgical History Surgical History: Surgical History (Updated 08/01/19 @ 14:41 by Shara Velazco PA-C) History of arthroscopy of both shoulders History of carpal tunnel release Right. History of inguinal herniorrhaphy Indirect inguinal hernia repair with mesh in December [address] Pugh
[2019-08-01] MEDS: SODIUM CHLORIDE 0.9% IV 1,000 ML 999 ML IV CONT ×2 (12:00→14:34)
[2019-08-01] MEDS: MORPHINE SULFATE 4 MG/ML INJ IV PUSH ×3 (12:01→18:38)
[2019-08-01] MEDS: ONDANSETRON INJ 4 MG/2 ML VIAL IV PUSH (12:01)
[2019-08-01 12:39] LABS: Hematocrit 37.5 % (42.0-52.0); Hemoglobin 11.8 g/dL (14.0-18.0); Mean Corpuscular HGB Conc 31.5 g/dl (32-36); Mean Corpuscular Hemoglobin 27.3 pg (26-34); Mean Corpuscular Volume 86.6 fl (80-100); Mean Platelet Volume 9.8 fl (7.4-10.4); Platelet Count Result 374 k/mm3 (150-375); Red Blood Count 4.33 M/mm3 (4.6-6.20); Red Cell Distribution Width 17.4 % (11.5-14.5); White Blood Count 15.9 K/mm3 (4.5-10.0)
[2019-08-01 12:50] LABS: Alanine Aminotransferase 58 U/L (4-50); Albumin Level 4.4 g/dL (3.5-5.1); Alkaline Phosphatase 317 U/L (38-126); Aspartate Amino Transferase 61 U/L (17-59); Bilirubin,Total 2.2 mg/dL (0.2-1.3); Blood Urea Nitrogen 15 mg/dL (9-20); Carbon Dioxide 21 mmol/L (22-30); Chloride 98 mmol/L (98-107); Estimated CRCL calculation 61 ml/min; Estimated Glomerular Filt Rate > 60; Glucose 109 mg/dL (75-110); Lipase 23 U/L (23-300); Sodium 130 mmol/L (137-145)
[2019-08-01 12:54] LABS: INR 1.2; Prothrombin Time 14.5 Seconds (11.1-14.7)
[2019-08-01 12:55] LABS: Partial Thromboplastin Time 35.6 SECONDS (22.3-36.8)
--- NOTE | 2019-08-01 13:10 | PC.NURSE ---
Sherry Counts in room drawing remaining blood.
--- NOTE | 2019-08-01 13:27 | PC.NURSE ---
CT informed patient is ready for CT scan
[2019-08-01 13:28] LABS: CRP 20.3 mg/dL (<1.0)
[2019-08-01 13:34] LABS: Band Neutrophils Percent 11 % (0-6); Lymphocytes Absolute Manual 0.15 K/mm3 (1.1-4.5); Metamyelocytes Percent 1 %; Monocytes Absolute Manual 0.15 K/mm3 (0.1-0.90); Monocytes Percent Manual 1 % (3-9); Neutrophils Absolute Manual 15.42 K/mm3 (1.3-6.7); Neutrophils Percent Manual 86 % (46-73); Platelet Estimate Adequate (Adequate); Total Cells Counted 100
[2019-08-01 13:39] LABS: Lactic Acid Reflex 1.9 mmol/L (0.7-2.1)
[2019-08-01 14:15] VITALS: BP 141/83; PULSE 103; RESP 18; O2SAT 98
--- NOTE | 2019-08-01 14:36 | PC.NURSE ---
Edmundo called to ask this nurse triage questions. States that they will call back with a bed.
[2019-08-01 14:50] LABS: Add Urine Microscopic? YES; Appearance Urine Clear (Clear); Bilirubin Urine Negative (Negative); Blood Urine Negative (Negative); Color Urine Amber (Yellow); Glucose Urine UA Negative (Negative); Ketones Urine Negative (Negative); Leukocyte Esterase Ur Negative LEU/UL (Negative); Mucus Urine Rare /lpf; Nitrate Urine Negative (Negative); Protein Urine 1+ mg/dL (Negative); RBC Urine 0-2 /hpf (0-2); WBC Urine 0-3 /hpf
[2019-08-01 14:57] LABS: Specific Grav Ur 1.039 (1.001-1.035)
[2019-08-01 16:15] VITALS: BP 121/74; PULSE 95; RESP 16; O2SAT 95
[2019-08-01 17:16] VITALS: BP 115/80; PULSE 89; O2SAT 95
--- NOTE | 2019-08-01 18:01 | PC.NURSE ---
Patient up to bathroom with . Refusing to let this nurse assist him.
--- NOTE | 2019-08-01 18:04 | PC.NURSE ---
Patient updated on bed situation at [facility].
--- NOTE | 2019-08-01 18:26 | PC.NURSE ---
lab in room to draw repeat H&H
[2019-08-01] MEDS: SODIUM CHLORIDE 0.9% IV 1,000 ML 150 ML IV CONT (18:38)
[2019-08-01 18:42] LABS: Hematocrit 32.1 % (42.0-52.0); Hemoglobin 10.5 g/dL (14.0-18.0)
[2019-08-01 19:42] VITALS: BP 117/86; PULSE 89; RESP 20; O2SAT 98
--- NOTE | 2019-08-01 19:55 | PC.NURSE ---
1940- hood called with bed, 2073 1944-report given to Ely Pratt at [facility]
--- NOTE | 2019-08-01 20:03 | PC.NURSE ---
Patient updated on room and transport
[2019-08-01 20:17] VITALS: PULSE 86; RESP 18; O2SAT 98
--- NOTE | 2019-08-01 20:21 | PC.NURSE ---
Patient transfered to [facility] with NS going at 150ml/hr. Intake charted of 150 while here in ED.
== END 2019-08-01 20:25 | disposition short-term general hospital (02) ==
PROVIDERS: Physician Assistant; Emergency Provider Emergency Medicine; PCP Internal Medicine
DX: K91.61 Intraoperative hemorrhage and hematoma of a digestive system organ or structure complicating a digestive system procedure (principal); K63.1 Perforation of intestine (nontraumatic); N40.0 Benign prostatic hyperplasia without lower urinary tract symptoms; E87.1 Hypo-osmolality and hyponatremia; D64.9 Anemia, unspecified; E78.5 Hyperlipidemia, unspecified; K21.9 Gastro-esophageal reflux disease without esophagitis; F32.9 Major depressive disorder, single episode, unspecified; I10 Essential (primary) hypertension; E03.9 Hypothyroidism, unspecified; G47.33 Obstructive sleep apnea (adult) (pediatric); G62.9 Polyneuropathy, unspecified; M06.9 Rheumatoid arthritis, unspecified; Z96.653 Presence of artificial knee joint, bilateral; Z98.1 Arthrodesis status
CPT/HCPCS: 36415; 51701; 74177; 80053; 81001; 83605; 83690; 85014; 85018; 85025; 85610; 85730; 86140; 86850; 86900; 86901; 87040; 87076; 87185; 96361; 96365; 96367; 96375; 96376; 99285; J0131; J2270; J2405; J2543; J7030; Q9967

== ENCOUNTER → 2019-08-19 10:43 | Outpatient (CLI) | payer MEDICARE, OTHER, SELFPAY ==
--- NOTE | ~2019-08-19 | XR_ITS ---
XR chest 2V DATE: 08/19/2019 11:27 INDICATION: Cough TECHNIQUE: 2 views COMPARISON: None FINDINGS: There are mild bibasilar infiltrates and/or atelectasis. There are bilateral small pleural effusions. Normal heart size. No hilar or mediastinal enlargement. No pulmonary vascular congestion or pneumotho rax. Status post posterior thoracolumbar spinal fusion with pedicle screws and rods. Moderate osteopenia. IMPRESSION: Mild bibasilar infiltrate and/or atelectasis and small bilateral pleural effusions Reviewed, dictated and finalized at location A. IMPRESSION: Mild bibasilar infiltrate and/or atelectasis and small bilateral pl eural effusions
== END ==
PROVIDERS: PCP Internal Medicine; Visit Provider Internal Medicine
DX: R05 Cough (principal); R91.8 Other nonspecific abnormal finding of lung field
CPT/HCPCS: 71046

== ENCOUNTER 2019-10-09 13:03 | Outpatient (CLI) | payer MEDICARE, OTHER, SELFPAY ==
[2019-10-09 13:22] LABS: Basophils Absolute Auto 0.1 K/mm3 (0.0-0.1); Basophils Percent Auto 0.6 % (0.2-1.2); Eosinophils Absolute Auto 0.1 K/mm3 (0-0.3); Eosinophils Percent Auto 1.2 % (0-4.4); Hematocrit 35.6 % (42.0-52.0); Hemoglobin 11.8 g/dL (14.0-18.0); Immature Granulocyte Absolute 0.03 K/mm3 (0.00-0.031); Immature Granulocyte Percent A 0.4 % (0-0.5); Immature Reticulocyte Fraction 9.9 % (3.0-15.9); Lymphocytes Absolute Auto 1.16 K/mm3 (0.9-3.2); Mean Corpuscular HGB Conc 33.1 g/dl (32-36); Mean Corpuscular Hemoglobin 28.3 pg (26-34); Mean Corpuscular Volume 85.4 fl (80-100); Mean Platelet Volume 9.3 fl (7.4-10.4); Monocytes Absolute Auto 0.7 K/mm3 (0.1-0.6); Monocytes Percent Auto 7.8 % (2.6-8.5); Neutrophils Absolute Auto 6.3 K/mm3 (1.3-6.7); Platelet Count Result 268 k/mm3 (150-375); Red Blood Count 4.17 M/mm3 (4.6-6.20); Reticulocyte Percent 0.93 % (0.7-4.3); Reticulocytes Absolute 0.04 B/L (32.2-175.7); White Blood Count 8.3 K/mm3 (4.5-10.0)
[2019-10-09 16:48] LABS: Iron 39 ug/dL (49-181)
[2019-10-09 16:53] LABS: Alanine Aminotransferase 17 U/L (4-50); Albumin Level 4.4 g/dL (3.5-5.1); Alkaline Phosphatase 101 U/L (38-126); Anion Gap 10 mmol/L (8-16); Aspartate Amino Transferase 34 U/L (17-59); Bilirubin,Total 0.5 mg/dL (0.2-1.3); Blood Urea Nitrogen 11 mg/dL (9-20); Calcium 9.4 mg/dL (8.4-10.2); Carbon Dioxide 26 mmol/L (22-30); Chloride 96 mmol/L (98-107); Estimated Glomerular Filt Rate > 60; Glucose 100 mg/dL (75-110); Lactate Dehydrogenase 372 U/L (313-618); Potassium 4.3 mmol/L (3.4-5.0); Sodium 132 mmol/L (137-145)
[2019-10-09 17:07] LABS: Percent Iron Saturation 12 % (20-50)
[2019-10-09 18:04] LABS: Folic Acid > 20.0 ng/mL (2.76->20)
[2019-10-17 18:39] LABS: Soluble Transferrin Receptor 1.86 mg/L (0.76-1.76)
== END 2019-10-09 13:04 | disposition home or self-care (01) ==
PROVIDERS: PCP Internal Medicine; Visit Provider Internal Medicine Hematology & Oncology
DX: D64.9 Anemia, unspecified (principal)
CPT/HCPCS: 36415; 80053; 82607; 82728; 82746; 83540; 83550; 83615; 84238; 85025; 85046

== ENCOUNTER → 2020-04-14 10:19 | Outpatient (CLI) | payer MEDICARE, SELFPAY ==
--- NOTE | ~2020-04-14 | XR_ITS ---
EXAMINATION: XR scoliosis survey EXAM DATE: 04/14/2020 11:10 INDICATION: Flatback syndrome, scoliosis of lumbar spine. History of multiple back surgeries. TECHNIQUE: Cervical spine frontal and lateral projections, thoracic spine frontal and lateral projec tions, thoracolumbar spine frontal and lateral projections. Comparison is made to prior examination f rom 05/21/2017. FINDINGS: Previous exam had lumbar hardware L3-L5, moderate dextroscoliosis centered at L3-4. This h as been revised, now with thoracolumbar Ybarra rods (sacral screws as well) and straightening of the previously seen scoliosis. There is no hardware fracture. There is evidence of bone graft materia l along the lumbar spine. Mild loss of the L3 and L4 vertebral body heights as previously seen. Lower lumbar disc spaces are not well visualized. There is 5 degrees dextrocurvature of the midthoracic spine. Thoracic paraspinal soft tissue unremark able. Mild to moderate disc disease has developed at the level just above the fusion. Moderate to sev ere loss of the C3-4 disc height, moderate at C5-6 and C6-7. Evidence of moderate cervical arthropath y. Mild straightening of normal cervical lordosis. Prevertebral soft tissue and pre-dens space are wi thin normal limits. The odontoid process is intact. The lateral masses of C1 line up with C2. IMPRESSION: 1. Fusion from lower thoracic spine through sacrum, intact. 2. Minimal mid thoracic 3. Moderate cervical spondylosis. Reviewed, dictated and finalized at location B. R MANAGER
== END ==
PROVIDERS: PCP Internal Medicine
DX: M40.30 Flatback syndrome, site unspecified (principal); Z98.1 Arthrodesis status; M47.812 Spondylosis without myelopathy or radiculopathy, cervical region
CPT/HCPCS: 72082

== ENCOUNTER 2020-09-22 13:55 | Outpatient (CLI) | payer MEDICARE, SELFPAY ==
[2020-09-22 14:46] LABS: Add Urine Microscopic? YES; Appearance Urine Clear (Clear); Bacteria Urine Trace /hpf; Bilirubin Urine Negative (Negative); Blood Urine Negative (Negative); Color Urine Yellow (Yellow); Glucose Urine UA Negative (Negative); Ketones Urine Negative (Negative); Leukocyte Esterase Ur Trace LEU/UL (NEGATIVE); Mucus Urine Rare /lpf; Nitrate Urine Negative (Negative); Protein Urine 1+ mg/dL (Negative); Specific Grav Ur 1.014 (1.001-1.035); Urobilinogen Urine Negative mg/dL (<2.0)
== END 2020-09-22 13:56 | disposition home or self-care (01) ==
PROVIDERS: PCP Internal Medicine; Referring Provider Physician Assistant; Visit Provider Internal Medicine
DX: R30.0 Dysuria (principal)
CPT/HCPCS: 81001; 87086

== ENCOUNTER 2020-09-23 09:57 | Inpatient (IN) | payer MEDICARE, SELFPAY ==
[2020-09-23] VITALS (12 sets, daily range): BP systolic 105–161; BP diastolic 66–97; PULSE 62–84; RESP 15–20; TEMP 36.2–36.6; O2SAT 95–100; BMI 28.3
--- NOTE | ~2020-09-23 | CT_ITS ---
EXAMINATION: CT abdomen pelvis w con DATE: 09/23/2020 16:15 INDICATION: Right lower quadrant abdominal pain, right groin pain. Urinary retention. TECHNIQUE: Computed tomography (CT) of the abdomen and pelvis was performed with 100 cc Omnipaque 350 intravenous contrast. Automated exposure control and iterative reconstruction technique were employe d. Exam dose: 533.91 mGy-cm total exam DLP. COMPARISON: 08/01/2019 CT abdomen pelvis FINDINGS: Minimal discoid atelectasis or scarring at the lung bases. No infiltrate or consolidation. Normal heart size. No pericardial or pleural effusion. The liver, gallbladder, bile ducts, spleen, pancreas, pancreatic duct, and adrenal glands and kidneys appear normal. No urinary tract calculus or obstruction is evident. There is a Guzman catheter within the evacuated urinary bladder. The bladder wall may be thickened but is not optimally evaluated in t he evacuated state. There is prostate enlargement and mild calcification. Status post right colon partial resection. No bowel obstruction or intraperitoneal free air is detect ed. Normal caliber of the abdominal aorta. No intraperitoneal or retroperitoneal or pelvic mass lesion or adenopathy or ascites. Posterior thoracolumbar surgical spinal fusion. IMPRESSION: Status post right partial colectomy No urinary tract calculus or urinary tract obstruction is evident Prostate enlargement and calcification Guzman catheter in urinary bladder; bladder wall may be thickened but is not optimally evaluated due t o underdistention. Reviewed, dictated and finalized at [facility]. Reviewed, dictated and finalized at [facility]. IMPRESSION: Status post right partial colectomy No urinary tract calculus or urinary tract obstruction is evident Prostate enlargement and calcification Guzman catheter in urinary bladder; bladder wall may be thickened but is not opt imally evaluated due to underdistention.
--- NOTE | 2020-09-23 10:16 | PC.NURSE ---
Pt stated he hasnt urinated since yesterday besides just drops . Verbal order for urinary catheter received from INDY Alejandre.
--- NOTE | 2020-09-23 11:08 | ECG_ITS ---
Measurements Intervals [place] Rate: 91 P: MD: 0 QRS: -67 QRSD: 111 T: 73 QT: 381 QTc: 470 Interpretive Statements SINUS RHYTHM ATRIAL COUPLET AND ATRIAL PREMATURE COMPLEXES LEFT ANTERIOR FASCICULAR BLOCK CANNOT RULE OUT SEPTAL INFARCT, AGE INDETERMINATE BASELINE ARTIFACT- I, III, AVR, AVL ABNORMAL ECG Electronically Signed On 09-23-2020 12:15:06 CDT by Attila León D.O.
[2020-09-23] MEDS: ONDANSETRON INJ 4 MG/2 ML VIAL IV PUSH (11:21)
[2020-09-23 11:51] LABS: Basophils Percent Auto 0.1 % (0.2-1.2); Eosinophils Absolute Auto 0.1 K/mm3 (0-0.3); Eosinophils Percent Auto 0.7 % (0-4.4); Hemoglobin 12.9 g/dL (14.0-18.0); Immature Granulocyte Absolute 0.08 K/mm3 (0.00-0.031); Immature Granulocyte Percent A 0.5 % (0-0.5); Lymphocytes Percent Auto 4.1 % (18.3-44.2); Mean Corpuscular HGB Conc 35.8 g/dl (32-36); Mean Corpuscular Hemoglobin 32.2 pg (26-34); Mean Corpuscular Volume 89.8 fl (80-100); Mean Platelet Volume 9.9 fl (7.4-10.4); Monocytes Absolute Auto 1.3 K/mm3 (0.1-0.6); Monocytes Percent Auto 8.8 % (2.6-8.5); Neutrophils Absolute Auto 12.6 K/mm3 (1.3-6.7); Neutrophils Percent Auto 85.8 % (45.5-73.1); Platelet Count Result 195 k/mm3 (150-375); Red Blood Count 4.01 M/mm3 (4.6-6.20); White Blood Count 14.7 K/mm3 (4.5-10.0)
[2020-09-23 11:56] LABS: Add Urine Microscopic? YES; Appearance Urine Clear (Clear); Bilirubin Urine Negative (Negative); Blood Urine Negative (Negative); Color Urine Amber (Yellow); Glucose Urine UA Negative (Negative); Ketones Urine Trace mg/dL (Negative); Leukocyte Esterase Ur Negative LEU/UL (Negative); Nitrate Urine Positive (Negative); Protein Urine 1+ mg/dL (Negative); Specific Grav Ur 1.017 (1.001-1.035); WBC Urine 0-3 /hpf
--- NOTE | 2020-09-23 12:05 | ED.MALEGU ---
HPI - Male Genitourinary General Chief complaint: Urogenital-Male Stated complaint: urinary retention x 1 day, groin pain Time Seen by Provider: 09/23/20 11:27 Related Data Home Medications Medication Instructions Recorded Confirmed gabapentin 400 mg capsule 400 mg PO DAILY 01/01/19 08/19/20 hydroxychloroquine 200 mg tablet 200 mg PO BID 01/01/19 08/19/20 methotrexate sodium 2.5 mg tablet 20 mg PO WEEKLY 01/01/19 08/19/20 multivitamin 1 tablet PO DAILY 01/01/19 08/19/20 nortriptyline 25 mg capsule 50 mg PO DAILY 01/01/19 08/19/20 omeprazole 10 mg capsule,delayed 10 mg PO DAILY 01/01/19 08/19/20 release trazodone 50 mg tablet 150 mg PO HS 01/01/19 08/19/20 folic acid 1 mg PO DAILY 05/27/19 08/19/20 sulfasalazine 1,000 mg PO BID 05/27/19 08/19/20 docusate sodium 100 mg PO BID 08/01/19 02/11/20 oxycodone 5 mg PO Q4H PRN 08/01/19 02/11/20 acetaminophen 500 mg tablet 1,000 mg PO Q6H PRN tablet 08/20/19 08/19/20 diphenhydramine 25 1 tablet PO .hs PRN tablet 08/20/19 02/11/20 mg-acetaminophen 500 mg tablet loratadine 10 mg tablet 10 mg PO DAILY PRN 08/20/19 08/19/20 sennosides 8.6 mg-docusate sodium 2 tab-cap PO BID tablet 08/20/19 08/19/20 50 mg tablet ascorbic acid (vitamin C) 500 mg PO DAILY 10/31/19 02/11/20 baclofen 10 mg PO DAILY 10/31/19 08/19/20 dextromethorphan-guaifenesin 1 tablet PO Q12H 10/31/19 02/11/20 Allergies Allergy/AdvReac Type Severity Reaction Status Date / Time No Known Allergies Allergy Verified 09/23/20 11:20 [facility] Past Medical History Medical History (Updated 09/23/20 @ 12:07 by Ezekiel Burns MD) Basal cell carcinoma Benign prostatic hyperplasia Chronic anemia With history of blood transfusion. Chronic hyponatremia Chronic rhinosinusitis Degenerative disc disease Degenerative joint disease Depression Dyslipidemia GERD (gastroesophageal reflux disease) With history of esophageal webs and reflux esophagitis noted on EGD October [address] Key. Hypertension Hypothyroidism Moderate obstructive sleep apnea Noted on sleep study in July 2013, however the patient denies having sleep apnea. Peripheral neuropathy Mainly affecting the feet. Rheumatoid arthritis On methotrexate. Shingles (~2012) Stricture of ascending colon Surgical History Surgical History History of arthroscopy of both shoulders History of carpal tunnel release Right. History of inguinal herniorrhaphy Indirect inguinal hernia repair with mesh in December [address] Raymundo. History of left knee replacement History of right knee joint replacement Ox word right partial medial compartment replacement in August [address] Khanna. History of rotator cuff surgery Right History of spinal fusion L3-L5 x2 T10-S1 History of surgical removal of ganglion cyst History of tonsillectomy Hx of colectomy Family History Family History Sibling Family history of drug dependence Patient's sister is in good health Father Hypertension Cerebrovascular accident Grandparent Carcinoma of colon Mother Family history of malignant neoplasm of esophagus Other Family history of arthritis Social History Social History Social History: The patient lives in [place], [place] a with his . 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 He is a lifelong nonsmoker. No alcohol or drug abuse. His , Ksenia, is his surrogate decision maker and he wishes to be a full code. Smoking status: Never smoker Second hand tobacco smoke exposure: No Alcohol intake: never Alcohol use details: occasionally Substance use: never Gender identity (if verbalized by the patient): Male Spiritual care concerns: No (Religion) Agree to blood products: Yes Course Vital Signs Vital signs: Vital Signs Temperature 36.6 C 08
[2020-09-23 12:24] LABS: Anion Gap 11 mmol/L (8-16); Blood Urea Nitrogen 8 mg/dL (9-20); Calcium 8.8 mg/dL (8.4-10.2); Carbon Dioxide 20 mmol/L (22-30); Chloride 85 mmol/L (98-107); Estimated CRCL calculation 82 ml/min; Estimated Glomerular Filt Rate > 60; Glucose 110 mg/dL (65-110); Potassium 3.4 mmol/L (3.4-5.0); Sodium 116 mmol/L (137-145)
[2020-09-23 14:23] LABS: Sodium 120 mmol/L (137-145)
[2020-09-23 14:24] LABS: Anion Gap 11 mmol/L (8-16); Blood Urea Nitrogen 8 mg/dL (9-20); Carbon Dioxide 20 mmol/L (22-30); Chloride 89 mmol/L (98-107); Estimated CRCL calculation 82 ml/min; Estimated Glomerular Filt Rate > 60; Glucose 96 mg/dL (65-110); Potassium 4.1 mmol/L (3.4-5.0)
--- NOTE | 2020-09-23 14:37 | PC.NURSE ---
Pt complaining of abdominal pain and requesting medication. Dr. Burns made aware.
--- NOTE | 2020-09-23 15:52 | ED.MALEGU ---
HPI - Male Genitourinary General Chief complaint: Urogenital-Male Stated complaint: urinary retention x 1 day, groin pain Time Seen by Provider: 09/23/20 11:27 Source: patient and family Mode of arrival: ambulatory Limitations: no limitations History of Present Illness HPI Narrative: 65-year-old male History of rheumatoid arthritis but otherwise pretty healthy rides a bike etc. He describes increasing urinary difficulty for many months with hesitancy and dribbling and decreased force He saw urology yesterday and was begun on Bactrim, he already takes Flomax Today he is complaining of no urination and progressively increasing lower abdominal discomfort No fever, no hematuria, no vomiting Related Data Home Medications Medication Instructions Recorded Confirmed gabapentin 400 mg capsule 400 mg PO DAILY 01/01/19 08/19/20 hydroxychloroquine 200 mg tablet 200 mg PO BID 01/01/19 08/19/20 methotrexate sodium 2.5 mg tablet 20 mg PO WEEKLY 01/01/19 08/19/20 multivitamin 1 tablet PO DAILY 01/01/19 08/19/20 nortriptyline 25 mg capsule 50 mg PO DAILY 01/01/19 08/19/20 omeprazole 10 mg capsule,delayed 10 mg PO DAILY 01/01/19 08/19/20 release trazodone 50 mg tablet 150 mg PO HS 01/01/19 08/19/20 folic acid 1 mg PO DAILY 05/27/19 08/19/20 sulfasalazine 1,000 mg PO BID 05/27/19 08/19/20 docusate sodium 100 mg PO BID 08/01/19 02/11/20 oxycodone 5 mg PO Q4H PRN 08/01/19 02/11/20 acetaminophen 500 mg tablet 1,000 mg PO Q6H PRN tablet 08/20/19 08/19/20 diphenhydramine 25 1 tablet PO .hs PRN tablet 08/20/19 02/11/20 mg-acetaminophen 500 mg tablet loratadine 10 mg tablet 10 mg PO DAILY PRN 08/20/19 08/19/20 sennosides 8.6 mg-docusate sodium 2 tab-cap PO BID tablet 08/20/19 08/19/20 50 mg tablet ascorbic acid (vitamin C) 500 mg PO DAILY 10/31/19 02/11/20 baclofen 10 mg PO DAILY 10/31/19 08/19/20 dextromethorphan-guaifenesin 1 tablet PO Q12H 10/31/19 02/11/20 Allergies Allergy/AdvReac Type Severity Reaction Status Date / Time No Known Allergies Allergy Verified 09/23/20 11:20 Review of Systems Review of Systems: All systems reviewed & are unremarkable except as noted in HPI and below Constitutional: Constitutional: Reports no additional constitutional complaints, Denies chills, Denies fever(s) and Denies headache(s) ENT: Denies headache(s) Cardiovascular: Cardiovascular: Denies dyspnea Respiratory: Respiratory: Denies cough and Denies dyspnea Gastrointestinal: Gastrointestinal: Reports abdominal pain, Denies constipation, Denies diarrhea and Denies vomiting Genitourinary: Genitourinary: Reports oliguria, Reports dysuria and Denies urinary frequency Musculoskeletal: Musculoskeletal: Denies deformity, Reports arthralgias, Reports joint swelling and Denies numbness Integumentary/Breasts: Skin/Breast: Denies rash and Denies wounds Neurologic: Denies headache(s), Denies focal weakness and Denies numbness Psychiatric: Psychiatric: Reports no additional psychiatric complaints Endocrine: Endocrine: Reports no additional endocrine complaints Hematologic/Lymphatic: Hematologic/Lymphatic: Reports no additional hematologic/lymphatic complaints Allergic/Immunologic: Allergic/Immunologic: Reports no additional allergic/immunologic complaints [facility] Past Medical History Medical History (Updated 09/23/20 @ 16:05 by Ezekiel Burns MD) Basal cell carcinoma Benign prostatic hyperplasia Chronic anemia With history of blood transfusion. Chronic hyponatremia Chronic rhinosinusitis Degenerative disc disease Degenerative joint disease Depression Dyslipidemia GERD (gastroesophageal reflux disease) With history of esophageal webs and reflux esophagitis noted on EGD October [address] Key. Hypertension Hypothyroidism Moderate obstructive sleep apnea Noted on sleep study in July 2013, however the patient denies having sleep apnea. Peripheral neuropathy Mainly affecting the feet. Rheumatoid arthritis On methotrexate.
--- NOTE | 2020-09-23 16:01 | PC.NURSE ---
Pt to CT.
[2020-09-23 16:56] LABS: Creatinine Urine 18.2 mg/dL
[2020-09-23 17:03] LABS: Sodium Urine Random 29 meq/L
--- NOTE | 2020-09-23 18:00 | PM.IMHP ---
H&P: HPI History of Present Illness Date/Time: 09/23/20 18:00 Chief Complaint: Urinary retention. Narrative: This is a 65-year-old male with benign prostatic hyperplasia, rheumatoid arthritis, hypothyroidism, dyslipidemia, and degenerative disc disease with chronic back pain who presented to the emergency department earlier today via private vehicle from home with reports of urinary retention. Over the last couple of months he has had worsening symptoms attributed to BPH and in fact he was seen by Masha Alegre NP with the urology group within the last couple of days for evaluation. At that time the patient tells me that his bladder ?was completely empty? although he was able to provide a small amount of urine which apparently was concerning for infection for which he was started on Septra. In addition to the inability to urinate he has also had pressure in the perineal region as well as nausea and temperature up to 101.2? 2 nights ago. A Guzman catheter was inserted on arrival to the emergency department and which reportedly yielded greater than 1800 cc of urine. At the time my evaluation he is having mild discomfort in the suprapubic region. Looking back through his labs it looks like his sodium is always a little low however was quite a bit lower than baseline. As above he has had some nausea that his appetite has been okay. He has had generalized weakness and has felt a bit ?off balance.? He has not had confusion, headaches, vomiting, or muscle cramps. No cough, sinus congestion, rhinorrhea, otalgia, odynophagia, or diarrhea. No sick contacts. Review of Systems Review of Systems: Twelve systems were reviewed with pertinent positives and negatives as per HPI. No known exposure to those positive for COVID 19. No headache. No vertigo. No syncope or near syncope. He denies chest pain pleuritic pain. No shortness of breath. No cough. Except as documented, all other systems were reviewed and are negative. [facility] Past Medical History Medical History (Updated 09/23/20 @ 21:44 by Brandy Burrows PA-C) Basal cell carcinoma Benign prostatic hyperplasia Chronic anemia With history of blood transfusion. Chronic back pain Chronic hyponatremia Chronic rhinosinusitis Degenerative disc disease Degenerative joint disease Depression Dyslipidemia GERD (gastroesophageal reflux disease) With history of esophageal webs and reflux esophagitis noted on EGD October [address] Key. Hypertension Hypothyroidism Moderate obstructive sleep apnea Noted on sleep study in July 2013, however the patient denies having sleep apnea. Peripheral neuropathy Mainly affecting the feet. Rheumatoid arthritis On methotrexate. 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 Surgical History Surgical History History of arthroscopy of both shoulders History of carpal tunnel release Right. History of inguinal herniorrhaphy Indirect inguinal hernia repair with mesh in December [address] Raymundo. History of left knee replacement History of partial colectomy Partial right colectomy secondary to stricture. History of right knee joint replacement Ox word right partial medial compartment replacement in August [address] Khanna. History of rotator cuff surgery Right History of spinal fusion L3-L5 x2 T10-S1 History of surgical removal of ganglion cyst History of tonsillectomy Family History Family History Sibling Family history of drug dependence Patient's sister is in good health Father Hypertension Cerebrovascular accident Grandparent Carcinoma of colon Mother Family history of malignant neoplasm of esophagus Other Family history of arthritis Social History Social History (Updated 09/23/20 @ 21:31 by Brandy Burrows PA-C) Social History: The patient lives in [place], [place] a
--- NOTE | 2020-09-23 19:45 | ADMGEN ---
This patient, yTler Ferrara, was admitted to Medical Room 261-01. Patient/family oriented to hospital policies and general routines including ID bracelet, bed and alarms, visiting hours, pain management, procedures, bathroom and other care routines, personal items, smoking policy, room service/diet, and visiting hours. Information on how to activate the Rapid Response Team has been discussed. Patient/Family are encouraged to report perceived risks to care and to ask questions if they do not understand what they are told or what they should do.
[2020-09-23] MEDS: SODIUM CHLORIDE 0.9% IV 1,000 ML 150 ML IV CONT (20:14)
[2020-09-23 20:29] LABS: Alanine Aminotransferase 18 U/L (4-50); Albumin Level 4.4 g/dL (3.5-5.1); Alkaline Phosphatase 88 U/L (38-126); Anion Gap 10 mmol/L (8-16); Aspartate Amino Transferase 43 U/L (17-59); Bilirubin,Total 0.8 mg/dL (0.2-1.3); Blood Urea Nitrogen 8 mg/dL (9-20); Carbon Dioxide 24 mmol/L (22-30); Chloride 88 mmol/L (98-107); Estimated CRCL calculation 73 ml/min; Estimated Glomerular Filt Rate > 60; Glucose 98 mg/dL (65-110); Magnesium 1.8 mg/dL (1.6-2.3); Potassium 3.6 mmol/L (3.4-5.0); Sodium 122 mmol/L (137-145)
[2020-09-23 23:31] LABS: Sodium 122 mmol/L (137-145)
[2020-09-24] MEDS: traZODone HCL 50 MG TABLET 150 MG PO ×2 (00:44→20:51)
[2020-09-24 00:52] LABS: Free T4 Free Thyroxine Reflex 1.22 ng/dL (0.78-2.19)
[2020-09-24 02:44] LABS: Total Triiodothyronine (T3) 0.85 NG/ML (0.97-1.69)
[2020-09-24 03:40] LABS: Sodium 121 mmol/L (137-145)
[2020-09-24 04:01] LABS: Creatinine Urine 83.4 mg/dL; Sodium Urine Random 67 meq/L
[2020-09-24 06:00] VITALS: BP 127/71; PULSE 87; RESP 18; TEMP 36.3; O2SAT 96
[2020-09-24] MEDS: LEVOTHYROXINE SODIUM 50 MCG TABLET PO (06:14)
[2020-09-24] MEDS: GABAPENTIN 400 MG CAPSULE PO (08:18)
[2020-09-24] MEDS: PANTOPRAZOLE SOD SESQUIHYDRATE 20 MG TAB PO (08:18)
[2020-09-24] MEDS: MULTIVITAMINS THERAPEUTIC TAB (*BKC) 1 TABLET PO (08:19)
[2020-09-24] MEDS: DOCUSATE SODIUM 100 MG CAPSULE PO ×2 (08:19→16:23)
[2020-09-24] MEDS: FOLIC ACID 1 MG TABLET PO (08:19)
[2020-09-24] MEDS: HYDROXYCHLOROQUINE SULFATE 200 MG TABLET PO (08:19)
[2020-09-24] MEDS: EZETIMIBE 10 MG TABLET PO (08:19)
[2020-09-24] MEDS: gemfibroziL 600 MG TABLET PO ×2 (08:19→16:24)
[2020-09-24] MEDS: TAMSULOSIN HCL 0.4 MG CAPSULE PO ×2 (08:19→16:23)
[2020-09-24] MEDS: BACLOFEN 10 MG TABLET PO (08:19)
[2020-09-24] MEDS: sulfaSALAzine 500 MG TABLET 1000 MG PO ×2 (08:20→17:27)
[2020-09-24 08:23] LABS: Hematocrit 37.5 % (42.0-52.0); Hemoglobin 12.8 g/dL (14.0-18.0); Mean Corpuscular HGB Conc 34.1 g/dl (32-36); Mean Corpuscular Hemoglobin 31.4 pg (26-34); Mean Corpuscular Volume 92.1 fl (80-100); Mean Platelet Volume 9.8 fl (7.4-10.4); Platelet Count Result 239 k/mm3 (150-375); Red Blood Count 4.07 M/mm3 (4.6-6.20); Red Cell Distribution Width 12.5 % (11.5-14.5); White Blood Count 15.6 K/mm3 (4.5-10.0)
[2020-09-24] MEDS: ACETAMINOPHEN 500 MG TABLET 1000 MG PO ×2 (08:25→20:51)
[2020-09-24 08:40] LABS: Anion Gap 10 mmol/L (8-16); Blood Urea Nitrogen 9 mg/dL (9-20); Calcium 8.9 mg/dL (8.4-10.2); Carbon Dioxide 19 mmol/L (22-30); Chloride 95 mmol/L (98-107); Estimated CRCL calculation 73 ml/min; Estimated Glomerular Filt Rate > 60; Glucose 93 mg/dL (65-110); Magnesium 1.8 mg/dL (1.6-2.3); Potassium 3.6 mmol/L (3.4-5.0); Sodium 124 mmol/L (137-145)
--- NOTE | 2020-09-24 08:57 | WPDURCON ---
Assessment and Plan Assessment and plan (1) Urinary retention: Code(s): R33.9 - Retention of urine, unspecified Status: Acute Assessment and Plan: Will plan to do a voiding trial prior to discharge. (2) Benign prostatic hyperplasia: Code(s): N40.0 - Benign prostatic hyperplasia without lower urinary tract symptoms Status: Acute Assessment and Plan: Increase Tamsulosin to 0.4mg BID. (3) Prostatitis: Code(s): N41.9 - Inflammatory disease of prostate, unspecified Status: Acute Assessment and Plan: Continue IV antibiotics, monitor WBC. I suspect his immunosuppressant's for his RA treatments are contributing to his worsening prostatitis. Urology Consult Note HPI Date Seen: 09/24/20 Requesting Physician: Agustina Malave PA-C Primary Care Provider: Kale Rose DO Consult Narrative Narrative: Tyler Ferrara is a 65 year old male who presented to the ER yesterday for worsening prostatitis. He c/o nausea, pain with sitting in his pelvis, low back pain, dysuria and inability to urinate. A cloud was then placed in the ER. He is a patient of ours and I saw him in the office on Sunday and treated him with oral antibiotics. His PVR in the office on Sunday was 7cc via bladder scan. He states his symptoms worsened over night and into yesterday which brought him to the ER. His WBC is elevated at 15.6 which is slightly increased from yesterday at 14.7, however creatinine is normal at 0.90. He is afebrile today but reports having a fever Sunday night,which broke on its own. He normally takes Tamsulosin 0.4mg QD and hasn't had any problems with retention. He denies hematuria, frequency or urgency to urinate. CT scan shows prostate enlargement with the cloud properly placed in the bladder. He notes that he recently started a new immunosuppressant infusion for his rheumatoid arthritis, which could be contributing to his worsening infection. He is now on IV Septra. Review of Systems Cardiovascular: Cardiovascular: Denies chest pain Respiratory: Respiratory: Reports no additional respiratory complaints Gastrointestinal: Gastrointestinal: Reports abdominal pain, Denies nausea and Denies vomiting Genitourinary: Genitourinary: Denies hematuria, Reports dysuria, Reports flank pain, Denies testicular pain, Denies urinary frequency, Reports urinary hesitancy and Denies urinary urgency [facility] Past Medical History Medical History Basal cell carcinoma Benign prostatic hyperplasia Chronic anemia With history of blood transfusion. Chronic back pain Chronic hyponatremia Chronic rhinosinusitis Degenerative disc disease Degenerative joint disease Depression Dyslipidemia GERD (gastroesophageal reflux disease) With history of esophageal webs and reflux esophagitis noted on EGD October [address] Key. Hypertension Hypothyroidism Moderate obstructive sleep apnea Noted on sleep study in July 2013, however the patient denies having sleep apnea. Peripheral neuropathy Mainly affecting the feet. Rheumatoid arthritis On methotrexate. 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 Surgical History Surgical History History of arthroscopy of both shoulders History of carpal tunnel release Right. History of inguinal herniorrhaphy Indirect inguinal hernia repair with mesh in December [address] Raymundo. History of left knee replacement History of partial colectomy Partial right colectomy secondary to stricture. History of right knee joint replacement Ox word right partial medial compartment replacement in August [address] Khanna. History of rotator cuff surgery Right History of spinal fusion L3-L5 x2 T10-S1 History of surgical removal of ganglion cyst History of tonsillectomy Family History Family History (Revi
[2020-09-24 11:04] LABS: Sodium 121 mmol/L (137-145)
[2020-09-24 14:00] VITALS: BP 124/77; PULSE 80; RESP 18; TEMP 35.9; O2SAT 96
--- NOTE | 2020-09-24 14:51 | PM.IMPN ---
Progress Note: A&P Assessment and Plan (1) Prostatitis: Code(s): N41.9 - Inflammatory disease of prostate, unspecified Status: Acute Assessment and Plan: Presented with groin pain x1 month. Evaluated by Urology as an outpatient on 09/22/2020 and started on Bactrim without improvement and complained of fevers up to 101.2?. Appreciate urology consultation Initiate IV Levaquin. Repeat EKG tomorrow to monitor QTc. Stop p.o. Bactrim Remains afebrile. Slight increase to leukocytosis. Anticipate further improvement with IV antibiotics Supportive care. Analgesics available as needed for pain (2) Urinary retention: Code(s): R33.9 - Retention of urine, unspecified Status: Acute Assessment and Plan: Guzman catheter yielded greater than 1800 cc of urine upon insertion. Continue with Guzman catheter Continue tamsulosin, increased to 0.4 mg b.i.d. Plan for voiding trial prior to discharge Patient is on anticholinergic medication nortriptyline, but reports he has not been taking for some. This should be discontinued. (3) Hyponatremia: Code(s): E87.1 - Hypo-osmolality and hyponatremia Status: Acute Assessment and Plan: Acute on chronic hyponatremia. I am not certain why he has chronic hyponatremia though may be related to SIADH given his chronic pain. Likely worsened due to acute urinary retention. He appears euvolemic and not dehydrated. Baseline sodium is 130 Sodium 116 on arrival with appropriate rate of correction, up to 121 over 24 hours. Monitor sodium q4h and adjust as needed Urine sodium 67. FENa is 0.6%. (4) Chronic anemia: Code(s): D64.9 - Anemia, unspecified Status: Acute Assessment and Plan: Hemoglobin and hematocrit are stable on review of previous labs. (5) Chronic back pain: Code(s): M54.9 - Dorsalgia, unspecified; G89.29 - Other chronic pain Status: Acute Assessment and Plan: Analgesics and muscle relaxers available as needed. (6) Benign prostatic hyperplasia: Code(s): N40.0 - Benign prostatic hyperplasia without lower urinary tract symptoms Status: Acute Assessment and Plan: With acute urinary retention. Continue tamsulosin as above. (7) Rheumatoid arthritis: Code(s): M06.9 - Rheumatoid arthritis, unspecified Status: Acute Assessment and Plan: No acute issues. Hold hydroxychloroquine while on Levaquin. Continue sulfasalazine. Patient also takes methotrexate weekly. (8) Hypothyroidism: Code(s): E03.9 - Hypothyroidism, unspecified Status: Acute Assessment and Plan: TSH slightly elevated with normal T4 and low T3 Continue levothyroxine at current dose Recommend repeat TSH with reflex in 4-6 weeks as an outpatient for monitoring (9) Hypertension: Code(s): I10 - Essential (primary) hypertension Status: Acute Assessment and Plan: Blood pressures were reviewed and were slightly elevated in the 140-150s systolic. Improving. Last BP 127/71. Continue antihypertensives and monitor BP trends Subjective Date/time seen: 09/24/20 14:51 Interval history: Date of service: 09/24/2020 Tyler Ferrara is a 65-year-old male with a history BPH, rheumatoid arthritis on immunosuppressive therapy, hypertension, hypothyroidism, anemia, and several other comorbidities who is seen in follow-up for acute prostatitis. He endorses perineal pain. He describes intermittent sharp and stabbing sensations that he rates as 10/10. He also has discomfort when sitting down. Also complains of ?gas pain? in his abdomen that has improved after she was having a soft bowel movement this afternoon. No issues with his Guzman catheter. Reports urine is orange in color and has not noticed any blood, clots, or sediment. Appetite is fair. Some mild nausea yesterday but this has improved. No nausea or vomiting today. No feve
[2020-09-24 20:34] LABS: Sodium 123 mmol/L (137-145)
[2020-09-24] MEDS: NORTRIPTYLINE HCL 25 MG CAPSULE 50 MG PO (20:51)
[2020-09-24] MEDS: SIMETHICONE 80 MG TAB.CHEW PO (20:56)
[2020-09-24 22:00] VITALS: BP 130/72; PULSE 85; RESP 18; TEMP 37.2; O2SAT 97
[2020-09-25 01:05] LABS: Sodium 122 mmol/L (137-145)
[2020-09-25] MEDS: LEVOTHYROXINE SODIUM 50 MCG TABLET PO (05:41)
[2020-09-25 06:00] VITALS: BP 107/57; PULSE 73; RESP 18; TEMP 36.3; O2SAT 100
--- NOTE | 2020-09-25 06:00 | ECG_ITS ---
Measurements Intervals [place] Rate: 86 P: 60 MD: 167 QRS: -60 QRSD: 114 T: 84 QT: 365 QTc: 437 Interpretive Statements SINUS RHYTHM ATRIAL PREMATURE COMPLEXES LEFT ANTERIOR FASCICULAR BLOCK CANNOT RULE OUT SEPTAL INFARCT, AGE INDETERMINATE BORDERLINE ST-T WAVE ABNORMALITY- HIGH LATERAL LEADS ABNORMAL ECG Electronically Signed On 09-25-2020 10:10:14 CDT by Attila León D.O.
[2020-09-25 06:12] LABS: Hematocrit 36.3 % (42.0-52.0); Hemoglobin 12.6 g/dL (14.0-18.0); Mean Corpuscular HGB Conc 34.7 g/dl (32-36); Mean Corpuscular Volume 92.1 fl (80-100); Mean Platelet Volume 9.2 fl (7.4-10.4); Platelet Count Result 222 k/mm3 (150-375); Red Blood Count 3.94 M/mm3 (4.6-6.20); Red Cell Distribution Width 12.5 % (11.5-14.5); White Blood Count 12.2 K/mm3 (4.5-10.0)
[2020-09-25 06:36] LABS: Anion Gap 9 mmol/L (8-16); Blood Urea Nitrogen 13 mg/dL (9-20); Calcium 8.9 mg/dL (8.4-10.2); Carbon Dioxide 23 mmol/L (22-30); Chloride 95 mmol/L (98-107); Estimated CRCL calculation 73 ml/min; Estimated Glomerular Filt Rate > 60; Glucose 108 mg/dL (65-110); Potassium 3.5 mmol/L (3.4-5.0); Sodium 127 mmol/L (137-145)
[2020-09-25] MEDS: oxyCODONE HCL (*CRX) 5 MG TAB IR PO ×2 (07:29→12:44)
[2020-09-25] MEDS: TAMSULOSIN HCL 0.4 MG CAPSULE PO ×2 (08:24→17:06)
[2020-09-25] MEDS: DOCUSATE SODIUM 100 MG CAPSULE PO ×2 (08:24→17:06)
[2020-09-25] MEDS: sulfaSALAzine 500 MG TABLET 1000 MG PO ×2 (08:24→17:06)
[2020-09-25] MEDS: MULTIVITAMINS THERAPEUTIC TAB (*BKC) 1 TABLET PO (08:24)
[2020-09-25] MEDS: FOLIC ACID 1 MG TABLET PO (08:24)
[2020-09-25] MEDS: gemfibroziL 600 MG TABLET PO ×2 (08:24→17:06)
[2020-09-25] MEDS: EZETIMIBE 10 MG TABLET PO (08:24)
[2020-09-25] MEDS: PANTOPRAZOLE SOD SESQUIHYDRATE 20 MG TAB PO (08:25)
[2020-09-25] MEDS: GABAPENTIN 400 MG CAPSULE PO (08:25)
[2020-09-25] MEDS: BACLOFEN 10 MG TABLET PO (08:25)
--- NOTE | 2020-09-25 10:24 | PM.IMPN ---
Progress Note: A&P Assessment and Plan (1) Prostatitis: Code(s): N41.9 - Inflammatory disease of prostate, unspecified Status: Acute Assessment and Plan: Presented with groin pain x1 month. Evaluated by Urology as an outpatient on 09/22/2020 and started on Bactrim without improvement and complained of fevers up to 101.2?. Appreciate urology consultation. Discussed case with Dr. Beck today Continue IV Levaquin started on 09/24. Remains afebrile. Leukocytosis improving. Supportive care. Analgesics available as needed for pain (2) Urinary retention: Code(s): R33.9 - Retention of urine, unspecified Status: Acute Assessment and Plan: Guzman catheter yielded greater than 1800 cc of urine upon insertion. Continue with Guzman catheter Continue tamsulosin, increased to 0.4 mg b.i.d. Will plan to discharge with Guzman and follow up with voiding trial on outpt urology follow up next week Patient is on anticholinergic medication nortriptyline, but reports he has not been taking for some. This will be discontinued. (3) Hyponatremia: Code(s): E87.1 - Hypo-osmolality and hyponatremia Status: Acute Assessment and Plan: Acute on chronic hyponatremia. I am not certain why he has chronic hyponatremia though may be related to SIADH given his chronic pain. Likely worsened due to acute urinary retention. He appears euvolemic and not dehydrated. Baseline sodium is 130 Sodium 116 on arrival with appropriate rate of correction, up to 127 today over 48 hours. Repeat sodium this afternoon. Appears to be self-correcting. He is not on fluids. Urine sodium 67. FENa is 0.6%. (4) Chronic anemia: Code(s): D64.9 - Anemia, unspecified Status: Acute Assessment and Plan: Hemoglobin and hematocrit are stable on review of previous labs. (5) Chronic back pain: Code(s): M54.9 - Dorsalgia, unspecified; G89.29 - Other chronic pain Status: Acute Assessment and Plan: Analgesics and muscle relaxers available as needed. (6) Benign prostatic hyperplasia: Code(s): N40.0 - Benign prostatic hyperplasia without lower urinary tract symptoms Status: Acute Assessment and Plan: With acute urinary retention. Continue tamsulosin as above. (7) Rheumatoid arthritis: Code(s): M06.9 - Rheumatoid arthritis, unspecified Status: Acute Assessment and Plan: No acute issues. Hold hydroxychloroquine while on Levaquin. Continue sulfasalazine. Patient also takes methotrexate weekly. (8) Hypothyroidism: Code(s): E03.9 - Hypothyroidism, unspecified Status: Acute Assessment and Plan: TSH slightly elevated with normal T4 and low T3 Continue levothyroxine at current dose Recommend repeat TSH with reflex in 4-6 weeks as an outpatient for monitoring (9) Hypertension: Code(s): I10 - Essential (primary) hypertension Status: Acute Assessment and Plan: Blood pressures were reviewed and were slightly elevated in the 140-150s systolic. Improved. Last BP 107/57 Continue antihypertensives and monitor BP trends Subjective Date/time seen: 09/25/20 10:24 Interval history: Date of service: 09/25/2020 Tyler Ferrara is a 65-year-old male with a history of BPH, rheumatoid arthritis on immunosuppressive therapy, hypertension, hypothyroidism, anemia, and several other comorbidities who is seen in follow-up for acute prostatitis. He is having slight improvement today. He is still having significant perineal discomfort especially when he is sitting down. When he is sitting he reports his pain is 6/10. This morning, he is also having pain from his urinary catheter and states something just does not feel right about it. He felt that last night it got tugged and since it has been hurting him. Did not notice any blood in his Guzman bag. Denies suprapubic pain or flank pain. No
--- NOTE | 2020-09-25 10:33 | WPDUROPN2 ---
Progress Note: A&P Assessment and Plan (1) Prostatitis: Code(s): N41.9 - Inflammatory disease of prostate, unspecified Status: Acute Assessment and Plan: Improving but mild leukocytosis persists. I'd suggest another days admission with one more dose of IV Levaquin tomorrow morning. Hopefully, discharge tomorrow if remains afebrile and serum WBC continues to improve. Home with indwelling catheter, on Flomax 0.4mg bid with anticiapted voiding trial next Sun./Sun. Levaquin/Cipro x4 weeks. All above explained to patient. Subjective Subjective Date/Time Seen: 09/25/20 10:33 Mild catheter irritation, otherwise no complaints. Review of Systems Cardiovascular: Cardiovascular: Denies chest pain, Denies lightheadedness, Denies palpitations and Denies dyspnea Respiratory: Respiratory: Denies dyspnea Gastrointestinal: Gastrointestinal: Denies diarrhea, Denies nausea and Denies vomiting Genitourinary: Genitourinary: Denies hematuria and Denies dysuria Endocrine: Endocrine: Denies palpitations Exam Const: General: no acute distress Resp: Effort & Inspection: normal respiratory effort GI: Inspection: non-distended GI Palp: No abdominal tenderness and No Guarding due to palpation present (GI) Auscultation: normal bowel sounds Objective Data Vital Signs Vital Signs: Vital Signs - 24 hr 09/24/20 14:00 09/24/20 22:00 09/25/20 06:00 Temperature 96.7 F L 98.9 F 97.3 F L Pulse Rate 80 85 73 Respiratory Rate 18 18 18 Blood Pressure 124/77 130/72 107/57 L Pulse Oximetry 96 97 100 Intake/Output Intake/Output: Intake & Output 09/22/20 09/23/20 09/24/20 09/25/20 23:59 23:59 23:59 23:59 Intake Total 275 1700 550 Output Total 1250 1600 Balance 275 450 -1050 Meds/Results Medications: Active Medications Generic Name Dose Route Start Last Admin Trade Name Freq PRN Reason Stop Dose Admin Acetaminophen 1,000 mg 09/23/20 23:22 09/24/20 20:51 Acetaminophen 500 Mg Tablet PO 1,000 mg Q6H PRN Administration Pain Rated 1-3 Albuterol 2 puff 09/23/20 23:35 Albuterol Sulfate (*Sp) Aerosol 1 Puff INHALATION Q4-6H PRN Shortness Of Breath Ascorbic Acid 500 mg 09/24/20 09:00 09/25/20 08:36 Ascorbic Acid 500 Mg Tablet PO Not Given DAILY MIRZA Baclofen 10 mg 09/24/20 09:00 09/25/20 08:25 Baclofen 10 Mg Tablet PO 10 mg DAILY MIRZA Administration Docusate Sodium 100 mg 09/24/20 09:00 09/25/20 08:24 Docusate Sodium 100 Mg Capsule PO 100 mg BID MIRZA Administration Ezetimibe 10 mg 09/24/20 09:00 09/25/20 08:24 Ezetimibe 10 Mg Tablet PO 10 mg DAILY MIRZA Administration Fluticasone Propionate 2 spray 09/23/20 23:22 Fluticasone Propionate 0.05% Na Spr 16 Gm Btl (*Bkc) NASAL DAILY PRN nasal congestion Folic Acid 1 mg 09/24/20 09:00 09/25/20 08:24 Folic Acid 1 Mg Tablet PO 1 mg DAILY MIRZA Administration Gabapentin 400 mg 09/24/20 09:00 09/25/20 08:25 Gabapentin 400 Mg Capsule PO 400 mg DAILY MIRZA Administration Gemfibrozil 600 mg 09/24/20 09:00 09/25/20 08:24 Gemfibrozil 600 Mg Tablet PO 600 mg BID MIRZA Administration Hydroxychloroquine Sulfate 200 mg 09/24/20 08:00 09/24/20 08:19 Hydroxychloroquine Sulfate 200 Mg Tablet PO 200 mg BIDWM MIRZA Administration Levofloxacin/Dextrose 750 mg in 150 mls @ 100 mls/hr 09/24/20 14:40 09/25/20 08:25 Levaquin 750 Mg/D5w 150 Ml IVPB 100 mls/hr QAM MIRZA Administration Levothyroxine Sodium 50 mcg 09/24/20 06:30 09/25/20 05:41 Levothyroxine Sodium 50 Mcg Tablet PO 50 mcg DAILY@0630 MIRZA Administration Loratadine 10 mg 09/23/20 23:22 Loratadine 10 Mg Tablet PO DAILY PRN Allergic Symptoms Multivitamins Therapeutic 1 tablet 09/24/20 09:00 09/25/20 08:24 Multivitamins Therapeutic Tab (*Bkc) PO 1 tablet DAILY MIRZA Administration Nortriptyline HCl 50 mg 09/24/20 21:00 09/24/20 20:51
[2020-09-25 12:35] LABS: Sodium 128 mmol/L (137-145)
[2020-09-25 15:00] VITALS: BP 132/78; PULSE 76; RESP 16; TEMP 36.1; O2SAT 100
[2020-09-25] MEDS: NORTRIPTYLINE HCL 25 MG CAPSULE 50 MG PO (21:36)
[2020-09-25] MEDS: traZODone HCL 50 MG TABLET 150 MG PO (21:36)
[2020-09-25 21:54] VITALS: BP 125/73; PULSE 85; RESP 18; TEMP 36.3; O2SAT 93
[2020-09-25] MEDS: ACETAMINOPHEN 500 MG TABLET 1000 MG PO (22:45)
[2020-09-25] MEDS: SIMETHICONE 80 MG TAB.CHEW PO (22:49)
[2020-09-26] MEDS: LEVOTHYROXINE SODIUM 50 MCG TABLET PO (05:48)
[2020-09-26 06:00] VITALS: BP 108/69; PULSE 80; RESP 18; TEMP 36.2; O2SAT 98
[2020-09-26 06:14] LABS: Anion Gap 6 mmol/L (8-16); Blood Urea Nitrogen 9 mg/dL (9-20); Calcium 8.9 mg/dL (8.4-10.2); Carbon Dioxide 24 mmol/L (22-30); Chloride 96 mmol/L (98-107); Estimated CRCL calculation 82 ml/min; Estimated Glomerular Filt Rate > 60; Glucose 109 mg/dL (65-110); Hematocrit 33.4 % (42.0-52.0); Hemoglobin 11.7 g/dL (14.0-18.0); Mean Corpuscular Hemoglobin 31.6 pg (26-34); Mean Corpuscular Volume 90.3 fl (80-100); Mean Platelet Volume 9.1 fl (7.4-10.4); Platelet Count Result 259 k/mm3 (150-375); Potassium 3.5 mmol/L (3.4-5.0); Red Cell Distribution Width 12.4 % (11.5-14.5); Sodium 126 mmol/L (137-145); White Blood Count 8.3 K/mm3 (4.5-10.0)
[2020-09-26] MEDS: ACETAMINOPHEN 500 MG TABLET 1000 MG PO (06:32)
[2020-09-26] MEDS: MULTIVITAMINS THERAPEUTIC TAB (*BKC) 1 TABLET PO (08:18)
[2020-09-26] MEDS: PANTOPRAZOLE SOD SESQUIHYDRATE 20 MG TAB PO (08:18)
[2020-09-26] MEDS: sulfaSALAzine 500 MG TABLET 1000 MG PO (08:18)
[2020-09-26] MEDS: GABAPENTIN 400 MG CAPSULE PO (08:18)
[2020-09-26] MEDS: EZETIMIBE 10 MG TABLET PO (08:18)
[2020-09-26] MEDS: DOCUSATE SODIUM 100 MG CAPSULE PO (08:18)
[2020-09-26] MEDS: BACLOFEN 10 MG TABLET PO (08:18)
[2020-09-26] MEDS: FOLIC ACID 1 MG TABLET PO (08:18)
[2020-09-26] MEDS: gemfibroziL 600 MG TABLET PO (08:18)
[2020-09-26] MEDS: TAMSULOSIN HCL 0.4 MG CAPSULE PO (08:18)
--- NOTE | 2020-09-26 15:10 | PM.DS ---
DS: Admitting Diagnosis Admitting Diagnosis Urinary retention DS: Discharge Diagnosis Discharge Diagnosis (1) Prostatitis: Code(s): N41.9 - Inflammatory disease of prostate, unspecified Status: Acute Assessment and Plan: Presented with groin pain x1 month. Evaluated by Urology as an outpatient on 09/22/2020 and started on Bactrim without improvement and complained of fevers up to 101.2?. He was seen in consultation by Urology Transitioned to IV Levaquin. Will continue p.o. Levaquin at home for 4 weeks Remained afebrile during hospitalization, leukocytosis resolved. Urine culture collected at outpatient urology appointment on 09/22/2020 was negative. (2) Urinary retention: Code(s): R33.9 - Retention of urine, unspecified Status: Acute Assessment and Plan: Guzman catheter yielded greater than 1800 cc of urine upon insertion. Guzman catheter was initiated and he will continue with catheter until urology follow-up in 2-3 days for voiding trial. He had a previously scheduled appointment which he will attend. His tamsulosin was increased to 0.4 mg b.i.d.. New prescription provided. Patient is on anticholinergic medication nortriptyline, but reports he has not been taking for some time. This was discontinued. (3) Hyponatremia: Code(s): E87.1 - Hypo-osmolality and hyponatremia Status: Acute Assessment and Plan: Acute on chronic hyponatremia. Chronic hyponatremia though may be related to SIADH given his chronic pain. Likely worsened due to acute urinary retention. He was euvolemic on exam Baseline sodium is 130 Sodium 116 on arrival with appropriate rate of correction, up to 127 over 48 hours Sodium 126 on day of discharge. Started on sodium chloride tabs and initiated 1500 cc fluid restriction Repeat BMP in 1 week and follow-up with PCP. I have spoken with his PCP office to ensure follow-up arranged. Urine sodium 67. FENa 0.6%. (4) Chronic anemia: Code(s): D64.9 - Anemia, unspecified Status: Acute Assessment and Plan: Hemoglobin and hematocrit remained stable on review of previous labs. (5) Chronic back pain: Code(s): M54.9 - Dorsalgia, unspecified; G89.29 - Other chronic pain Status: Acute Assessment and Plan: Continue with home pain regimen of analgesics and muscle relaxers. (6) Benign prostatic hyperplasia: Code(s): N40.0 - Benign prostatic hyperplasia without lower urinary tract symptoms Status: Acute Assessment and Plan: With acute urinary retention. Continue tamsulosin as above. (7) Rheumatoid arthritis: Code(s): M06.9 - Rheumatoid arthritis, unspecified Status: Acute Assessment and Plan: No acute issues. Continue sulfasalazine. He takes weekly methotrexate. Hydroxychloroquine held while on Levaquin. Immunosuppressive drugs could have contributed to prostatitis. He needs to follow-up with his manager contracting. (8) Hypothyroidism: Code(s): E03.9 - Hypothyroidism, unspecified Status: Acute Assessment and Plan: TSH slightly elevated with normal T4 and low T3. Continue levothyroxine at current dose. Recommend repeat TSH with reflex in 4-6 weeks as an outpatient for monitoring (9) Hypertension: Code(s): I10 - Essential (primary) hypertension Status: Acute Assessment and Plan: Blood pressures generally well controlled. Continue antihypertensives. DS: Summary Hospital Course Hospital Course: Date of admission: 09/23/2020 Date of discharge: 09/26/2020 Tyler Ferrara is a 65-year-old male with a history of BPH, rheumatoid arthritis on immunosuppressive therapy, hypertension, hypothyroidism, anemia, and several other medical problems who presented to the emergency department on 09/23/2020 with complaints of urinary symptoms ongoing for 1 month including hesitancy, dribbling, and weak stream. He was seen by Urol
[2020-09-27 00:26] LABS: Osmolality, Urine 149 mOsm/kg (50-1200)
== END 2020-09-26 16:01 | disposition home or self-care (01) | DRG 728 ==
LOC: ANHED 16:05 → ANH2MED 19:56
PROVIDERS: Emergency Medicine; Physician Assistant; Admitting Provider Internal Medicine Critical Care Medicine; Emergency Provider Emergency Medicine; PCP Internal Medicine; Visit Provider Physician Assistant
DX: N41.9 Inflammatory disease of prostate, unspecified (principal); E87.1 Hypo-osmolality and hyponatremia; R33.9 Retention of urine, unspecified; D64.9 Anemia, unspecified; M54.9 Dorsalgia, unspecified; G89.29 Other chronic pain; N40.1 Benign prostatic hyperplasia with lower urinary tract symptoms; M06.9 Rheumatoid arthritis, unspecified; E03.9 Hypothyroidism, unspecified; I10 Essential (primary) hypertension; Z85.828 Personal history of other malignant neoplasm of skin; Z96.653 Presence of artificial knee joint, bilateral; F32.9 Major depressive disorder, single episode, unspecified; G47.33 Obstructive sleep apnea (adult) (pediatric); G62.9 Polyneuropathy, unspecified; K21.9 Gastro-esophageal reflux disease without esophagitis; Z98.1 Arthrodesis status
CPT/HCPCS: 36415; 51702; 74177; 80048; 80053; 81001; 82570; 83735; 83930; 83935; 84295; 84300; 84439; 84443; 84480; 85025; 85027; 93005; A9270; J1956; J2405; J7030; Q9967

== ENCOUNTER → 2021-02-14 12:01 | Outpatient (CLI) | payer MEDICARE, SELFPAY ==
--- NOTE | ~2021-02-14 | XR_ITS ---
EXAMINATION: XR chest 2V DATE: 02/14/2021 12:15 INDICATION: Cough. TECHNIQUE: Frontal and lateral views of the chest were obtained. COMPARISON: Chest 2 views 08/19/2019 FINDINGS: There is mild atelectasis at left lung base. No pleural effusion or pneumothorax. The heart size is normal. There are changes of posterior fusion procedure in thoracolumbar spine. IMPRESSION: 1. Mild atelectasis at left lung base. Reviewed, dictated and finalized at location B. TUBE SETTER
== END ==
PROVIDERS: Visit Provider Physician Assistant
DX: R05.9 Cough, unspecified (principal); R91.8 Other nonspecific abnormal finding of lung field
CPT/HCPCS: 71046

== ENCOUNTER → 2021-08-19 10:39 | Outpatient (CLI) | payer MEDICARE, SELFPAY ==
--- NOTE | ~2021-08-19 | XR_ITS ---
EXAMINATION: XR foot LT 2V DATE: 08/19/2021 11:12 INDICATION: Left foot pain TECHNIQUE: Dorsoplantar, two oblique and lateral views of the left foot were obtained. COMPARISON: 03/04/2018 FINDINGS: Bone alignment is normal. Unchanged tiny ossific density along the dorsal aspect of the neck of the t alus potentially related to an old capsular avulsion fracture fragment. No acute fracture. Joint spac es are normal. No erosions or periosteal reaction. Soft tissues are unremarkable. No ankle joint effu abdulaziz. IMPRESSION: 1. No acute osseous abnormality. Reviewed, dictated and finalized at location B.
== END ==
PROVIDERS: PCP Internal Medicine; Visit Provider Physician Assistant
DX: M79.672 Pain in left foot (principal)
CPT/HCPCS: 73620

== ENCOUNTER → 2021-12-12 14:22 | Outpatient (CLI) | payer MEDICARE, SELFPAY ==
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
== END ==
PROVIDERS: PCP Internal Medicine; Visit Provider Internal Medicine
DX: M25.512 Pain in left shoulder (principal); S49.92XA Unspecified injury of left shoulder and upper arm, initial encounter; M50.322 Other cervical disc degeneration at C5-C6 level
CPT/HCPCS: 73030

== ENCOUNTER 2022-08-14 14:44 | Emergency (ER) | payer MEDICARE, SELFPAY ==
--- NOTE | ~2022-08-14 | CT_ITS ---
EXAMINATION: CT lumbar spine wo con DATE: 08/14/2022 17:28 INDICATION: Low back pain. TECHNIQUE: Computed tomography (CT) of the lumbar spine was performed without intravenous contrast. A utomated exposure control and iterative reconstruction technique were employed. The dose-length produ ct was 1290.68 mGy-cm. COMPARISON: Lumbar spine CT 03/18/2019 FINDINGS: There is 16 degrees dextroscoliosis of lumbar spine. There are changes of posterior fusion procedure from T11 to the sacrum and iliac bones. There is mild chronic anterior wedging of T11 verte bral body. There is severely decreased disc height at T10-T11 with endplate remodeling. There is mild ly decreased disc height at L1-L2. There is interbody fusion from L2-L3 through L4-L5. The right S1 s crew passes through the L5-S1 disc. The following disc levels are specifically discussed: T11-T12: The disc is bulging. There is severe bilateral facet joint osteoarthritis. There is mild amandeep ateral neural foraminal stenosis. There is mild central canal stenosis. T12-L1: The disc does not extend beyond the endplate margin. There is no facet joint hypertrophy. The re is no neural foraminal stenosis. There is no central canal stenosis. L1-L2: The disc does not extend beyond the endplate margin. There is no facet joint hypertrophy. Ther e is no neural foraminal stenosis. There is no central canal stenosis. L2-L3: There is mild bilateral facet joint hypertrophy. There is mild bilateral neural foraminal sten osis. There is no central canal stenosis. L3-L4: There is mild bilateral facet joint hypertrophy. There is mild right and moderate left neural foraminal stenosis. There is mild central canal stenosis. L4-L5: There is mild right facet joint osteoarthritis. There is moderate right neural foraminal steno sis. There is no central canal stenosis. L5-S1: The disc does not extend beyond the endplate margin. There is mild bilateral facet joint hyper trophy. There is mild right neural foraminal stenosis. There is no central canal stenosis. IMPRESSION: 1. Worsened severe spondylosis at T10-T11. 2. Posterior fusion procedure from T11 to the sacrum and iliac bones. 3. Thoracolumbar dextroscoliosis. Reviewed, dictated and finalized at location E.
--- NOTE | ~2022-08-14 | CT_ITS ---
EXAMINATION: CT pelvis wo con DATE: 08/14/2022 17:28 INDICATION: Low back pain. TECHNIQUE: Computed tomography (CT) of the pelvis was performed without intravenous contrast. Automat ed exposure control and iterative reconstruction technique were employed. The dose-length product was 463.33 mGy-cm. COMPARISON: CT abdomen and pelvis 09/23/2020 FINDINGS: There is an anastomosis in the right colon. There are no dilated loops of bowel. There are no pathologically enlarged lymph nodes. There is no free intraperitoneal fluid. There are changes of posterior fusion procedure involving the lumbar spine, sacrum, and iliac bones. No periscrew lucency to suggest loosening or infection. There is mild lumbar spondylosis. There is mild osteoarthritis of the hips. IMPRESSION: 1. Mild lumbar spondylosis. 2. Posterior fusion procedure involving the lumbar spine, sacrum, and iliac bones. Reviewed, dictated and finalized at location E. IMPRESSION: 1. Mild lumbar spondylosis. 2. Posterior fusion procedure involving the lumbar spine, sacrum, and iliac bon es.
[2022-08-14 14:53] VITALS: BP 151/92; PULSE 53; RESP 16; TEMP 36.6; O2SAT 100
--- NOTE | 2022-08-14 16:10 | PC.NURSE ---
pt continues to await provider, medical administrator made aware of delay. provider has been alerted to delay
[2022-08-14] MEDS: KETOROLAC 30 MG/ML VIAL (*BKC) IM (17:15)
[2022-08-14] MEDS: CYCLOBENZAPRINE HCL 10 MG TABLET PO (17:16)
[2022-08-14] MEDS: HYDROcodone/acetaminophen (*CRX) 5-325 MG TABLET 1 TAB PO (17:16)
--- NOTE | 2022-08-14 17:57 | ED.BACK ---
HPI - Back Pain/Injury General Chief Complaint: Back Pain/Injury Stated Complaint: back pain Time Seen by Provider: 08/14/22 15:28 History of Present Illness HPI Narrative: 67-year-old male with history of chronic back pain and rheumatoid arthritis reports for evaluation of worsening back pain with radiating pain down his left leg that started today. Patient states he was trying out of his truck, rotating his torso when he felt a sharp sudden pain and felt a pop in his low back. Since then, he has had back pain in the low back worse on the left side that extends down into his glute and radiates down the back of his thigh. He reports numbness in his toes which is unchanged from his peripheral neuropathy. He denies focal numbness or weakness, tingling, loss of bowel or bladder control, saddle anesthesia, fever, IV drug use. He has a history of a fusion from S1-T10 performed at [place] many years ago. He sees Dr. Craig spine surgeon at [place], last apt was 1 year ago. He has not taken anything today for pain. Related Data Home Medications Medication Instructions Recorded Confirmed gabapentin 400 mg capsule 400 mg PO DAILY 01/01/19 02/27/22 hydroxychloroquine 200 mg tablet 200 mg PO BID 01/01/19 02/27/22 methotrexate sodium 2.5 mg tablet 20 mg PO WEEKLY 01/01/19 02/27/22 multivitamin (Daily Multi-Vitamin 1 tablet PO DAILY 01/01/19 02/27/22 tablet) omeprazole 10 mg capsule,delayed 10 mg PO DAILY 01/01/19 02/27/22 release trazodone 50 mg tablet 150 mg PO HS 01/01/19 02/27/22 folic acid 1 mg tablet 1 mg PO DAILY 05/27/19 02/27/22 sulfasalazine 500 mg 1,000 mg PO BID 05/27/19 02/27/22 tablet,delayed release oxycodone 5 mg tablet 5 mg PO Q4H PRN Pain, Severe 08/01/19 02/27/22 Allergies Allergy/AdvReac Type Severity Reaction Status Date / Time No Known Allergies Allergy Verified 02/27/22 10:04 Review of Systems Review of Systems: CONSTITUTIONAL: Denies fever, chills EYES: Denies visual changes, redness, or discharge. ENT: Denies rhinorrhea, congestion, sore throat, or otalgia. CARDIOVASCULAR: Denies chest pain, palpitations, or edema. RESPIRATORY: Denies cough or dyspnea. GASTROINTESTINAL: Denies abdominal pain, nausea, vomiting, or diarrhea. GENITOURINARY: Denies dysuria or hematuria. SKIN: Denies rash or itching. MUSCULOSKELETAL: See HPI NEUROLOGIC: Denies headache, numbness, dizziness, or weakness. PSYCHIATRIC: Denies anxiety or depression. [facility] Past Medical History Medical History Basal cell carcinoma Benign prostatic hyperplasia Chronic anemia With history of blood transfusion. Chronic back pain Chronic hyponatremia Chronic rhinosinusitis Degenerative disc disease Degenerative joint disease Depression Dyslipidemia GERD (gastroesophageal reflux disease) With history of esophageal webs and reflux esophagitis noted on EGD October [address] Key. Hypertension Hypothyroidism Moderate obstructive sleep apnea Noted on sleep study in July 2013, however the patient denies having sleep apnea. Peripheral neuropathy Mainly affecting the feet. Rheumatoid arthritis On methotrexate. 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 Surgical History Surgical History History of arthroscopy of both shoulders History of carpal tunnel release Right. History of inguinal herniorrhaphy Indirect inguinal hernia repair with mesh in December [address] Raymundo. History of left knee replacement History of partial colectomy Partial right colectomy secondary to stricture. History of right knee joint replacement Ox word right partial medial compartment replacement in August [address] Khanna. History of rotator cuff surgery Right History of spinal fusion L3-L5 x2 T10-S1 History of surgical removal of ganglion cyst History of tonsillectomy Family Hist
== END 2022-08-14 19:17 | disposition home or self-care (01) ==
PROVIDERS: Emergency Provider Physician Assistant; PCP Internal Medicine
DX: M54.42 Lumbago with sciatica, left side (principal); E03.9 Hypothyroidism, unspecified; I10 Essential (primary) hypertension
CPT/HCPCS: 72131; 72192; 96372; 99284; A9270; J1885

== ENCOUNTER 2023-04-03 07:24 | Outpatient (CLI) | payer MEDICARE, SELFPAY ==
--- NOTE | 2023-04-05 12:36 | P.PCNHOL_ITS ---
Holter/Event Monitor Holter/Event Monitor Date of procedure: 04/03/23 Holter/Event Procedure: 24 Hr Holter Monitor Indications: Irregular heart beat Conclusion: 1. 24 hour holter monitor on 04/03/23. 2. Predominant rhythm is sinus rhythm. HR range 43-146 bpm; average HR 65 bpm. HR at 43 bpm was at 06:26. HR at 146 bpm was at 22:47. 3. There are 6,250 premature supraventricular complexes, 732 supraventricular couplets, 219 supraventricular bigeminy and 291 supraventricular trigeminy. There are 22 episodes of atrial tachycardia, fastest at 148 bpm and longest lasting 24 beats. 4. There are 1,190 premature ventricular complexes, 8 ventricular couplets, 43 ventricular bigeminy and 19 ventricular trigeminy. No ventricular tachycardia. 5. No sinoatrial or atrioventricular blocks. There is IVCD. No significant pa uses greater than 2 seconds. 6. No symptoms available for correlation.
== END 2023-04-03 07:25 | disposition home or self-care (01) ==
PROVIDERS: PCP Internal Medicine; Visit Provider Physician Assistant
DX: I49.9 Cardiac arrhythmia, unspecified (principal)
CPT/HCPCS: 93225; 93226

== ENCOUNTER 2023-07-06 07:59 | Outpatient (CLI) | payer MEDICARE, SELFPAY ==
--- NOTE | 2023-07-06 08:12 | ECG_ITS ---
[facility] [address] Test Date: 2023-07-06 Pat Name: Tyler Ferrara Department: Room: Gender: M Supervisor Product Inspection: : 1955 Requested By: Pepe Armijo Order Number: [id number] Jey MD: Attila León D.O. Measurements Intervals Sanders Rate: 53 P: 27 UT: 178 QRS: -49 QRSD: 115 T: 44 QT: 413 QTc: 388 Interpretive Statements SINUS BRADYCARDIA WITH SINUS ARRHYTHMIA LEFT ANTERIOR FASCICULAR BLOCK BASELINE ARTIFACT- I, II, III, AVR, AVL ABNORMAL ECG No previous ECG available for comparison Electronically Signed On 07-06-2023 08:41:34 CDT by Attila León D.O.
[2023-07-06 08:37] LABS: Hematocrit 39.2 % (42.0-52.0); Hemoglobin 13.2 g/dL (14.0-18.0)
== END 2023-07-06 08:00 | disposition home or self-care (01) ==
LOC: ANHSURGERY 08:04
PROVIDERS: Anesthesiology; PCP Internal Medicine; Visit Provider Surgery
DX: Z01.818 Encounter for other preprocedural examination (principal); K40.90 Unilateral inguinal hernia, without obstruction or gangrene, not specified as recurrent; D64.9 Anemia, unspecified; I10 Essential (primary) hypertension
CPT/HCPCS: 36415; 85014; 85018; 86850; 86900; 86901; 93005

== ENCOUNTER 2023-07-13 00:22 | Day surgery (SDC) | payer MEDICARE, SELFPAY ==
[2023-07-05 15:27] VITALS: BMI 29.4
--- NOTE | 2023-07-05 15:52 | PC.NURSE ---
Report to the Outpatient Waiting Room, entrance under the green pavilion located off [facility], at time _10:00AM on date ___07/13/23____. Planned Procedure Time: __12:00PM . Time changes happen often and if your time is changed the preop area will call you the afternoon before. - You and your visitor will be asked to self-screen and do not enter if you have any COVID symptoms. - A mask is optional within the hospital at this time. Patients may have clear liquids (water, carbonated beverages, clear teas, apple juice) until 3 hours prior to surgery with a maximum of 20 ounces. - No food from midnight until time of surgery. Take the following medications with a SIP of water the morning of surgery: ____LEVOTHYROXINE. OXYCODONE NEEDED FOR PAIN. DO NOT STOP ANY OF YOUR OTHER PRESCRIPTION MEDICATIONS PRIOR TO SURGERY ?EXCEPT THE FOLLOWING Medications to discontinue per physician HOLD ALL VITAMINS/SUPPLEMENTS 3 DAYS PRE-OP PER ANESTHESIA Date to take last dose 07/09/23 Please no make-up, nail welsh, hairspray, perfume, deodorant, or body powder the day of surgery. No jewelry (including any body piercings) or valuables the day of surgery, leave them at home. Please take a shower or bath the night before, or the morning of, surgery with an antibacterial soap. Wear comfortable, loose fitting clothing. - Jewelry must be removed prior to entering the operating room. Rings and piercings that are not removed may be cut off. - The hospital will not accept responsibility for valuables. - Please leave all valuables, including medications, at home the day of surgery. If you are going home after surgery, a licensed passenger coach driver must drive you home. - NO public transportation without another adult if you receive anesthesia. - We recommend that an adult stay with you for 24 hours following discharge. - We also recommend that you do not drive, make important decision, drink alcoholic beverages, or take any drugs that were not prescribed by your health care provider for at least 24 hours after your discharge time. Follow any additional instructions given to you from your surgeon. If you or anyone in your household have experienced Covid symptoms in the past week, please notify your surgeon or the nurse liaison at the phone number below for possible testing. Telephone instructions given to ____PATIENT and asked if any additional questions and then verbalized understanding. Patient advised to call surgeon office or pre surgery nurse liaison [phone] if any additional questions.
[2023-07-13] VITALS (12 sets, daily range): BP systolic 122–152; BP diastolic 62–89; PULSE 48–77; RESP 13–18; TEMP 36.3–36.7; O2SAT 97–100
[2023-07-13] MEDS: ACETAMINOPHEN 500 MG TABLET 1000 MG PO (10:13)
[2023-07-13] MEDS: KETOROLAC 15 MG/ML VIAL (*BKC) IV PUSH (10:58)
--- NOTE | 2023-07-13 11:39 | SUR.PREOP ---
Discussed delay with patient an . Voices understanding. no needs at present.
--- NOTE | 2023-07-13 12:12 | WPDANESEPPF ---
Anes - Initial Pre Proc Eval Procedure: Operation Date: 07/13/23 12:00 Proposed Procedures p Robotic Assisted Left Inguinal Hernia Repair with Mesh - Diya Jarrett MD Date/Time: 07/13/23 12:12 Surgeon: Diya Jarrett MD Pre Op Diagnosis: left inguinal hernia Patient Data Age: 68 Gender: M Height: 1.78 m Weight: 90.7 kg Last Vital Signs Temp 97.4 F L 07/13/23 10:44 Pulse 48 L 07/13/23 10:44 Resp 16 07/13/23 10:44 BP 144/79 H 07/13/23 10:44 Pulse Ox 100 07/13/23 10:44 O2 Del Method Room Air 07/13/23 10:44 Allergies Allergy/AdvReac Type Severity Reaction Status Date / Time No Known Allergies Allergy Verified 07/05/23 15:17 Home Medications Medication Instructions Recorded Confirmed Type gabapentin 400 mg capsule 400 mg PO HS 01/01/19 07/05/23 History hydroxychloroquine 200 mg tablet 200 mg PO BID 01/01/19 07/05/23 History methotrexate sodium 2.5 mg tablet 15 mg PO WEEKLY 01/01/19 07/05/23 History multivitamin (Daily Multi-Vitamin 1 tablet PO DAILY 01/01/19 07/05/23 History tablet) trazodone 50 mg tablet 50 mg PO HS 01/01/19 07/05/23 History folic acid 1 mg tablet 1 mg PO DAILY 05/27/19 07/05/23 History sulfasalazine 500 mg 1,000 mg PO BID 05/27/19 07/05/23 History tablet,delayed release oxycodone 5 mg tablet 5 mg PO Q4H PRN Pain, Severe 08/01/19 07/05/23 History gemfibrozil 600 mg tablet 600 mg PO BID #180 tabs 04/22/23 07/05/23 Rx acetaminophen 500 mg tablet 1,000 mg PO Q6H PRN Pain 06/27/23 07/05/23 History (Tylenol Extra Strength) docusate calcium 240 mg capsule 240 mg PO DAILY 06/27/23 07/05/23 History ferrous sulfate 325 mg (65 mg 325 mg PO DAILY 06/27/23 07/05/23 History iron) tablet (Iron (ferrous sulfate)) finasteride 5 mg tablet 5 mg PO DAILY 06/27/23 07/05/23 History loratadine 10 mg tablet 10 mg PO DAILY PRN Sinus Symptoms 06/27/23 07/05/23 History nortriptyline 25 mg capsule 25 mg PO HS 06/27/23 07/05/23 History ezetimibe 10 mg tablet (Zetia) 10 mg PO DAILY #90 tabs 07/02/23 07/05/23 Rx levothyroxine 75 mcg tablet 75 mcg PO QAM 07/05/23 07/05/23 History omeprazole 20 mg capsule,delayed 20 mg PO QPM 07/05/23 07/05/23 History release tamsulosin 0.4 mg capsule 0.4 mg PO QAM 07/05/23 07/05/23 History Patient hx anesthesia problems: none Family hx anesthesia problems: none Results Review: All pre-operative results and documents have been reviewed as part of the pre-operative evaluation. FOR[facility] Past Medical History Medical History Basal cell carcinoma Benign prostatic hyperplasia Chronic anemia With history of blood transfusion. Chronic back pain Chronic hyponatremia Chronic rhinosinusitis Degenerative disc disease Degenerative joint disease Depression Dyslipidemia GERD (gastroesophageal reflux disease) With history of esophageal webs and reflux esophagitis noted on EGD October [address] Key. Hypertension Hypothyroidism Moderate obstructive sleep apnea Noted on sleep study in July 2013, however the patient denies having sleep apnea. Peripheral neuropathy Mainly affecting the feet. Rheumatoid arthritis On methotrexate. 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 Surgical History Surgical History History of arthroscopy of both shoulders History of carpal tunnel release Right. History of inguinal herniorrhaphy Indirect inguinal hernia repair with mesh in December [address] Raymundo. History of left knee replacement History of partial colectomy Partial right colectomy secondary to stricture. History of right knee joint replacement Ox word right partial medial compartment replacement in August [address] Khanna. History of rotator cuff surgery Right History of sinus surgery History of spinal fusion L3-L5 x2 T10-S1 History of surgical removal of ganglion cyst Histo
--- NOTE | 2023-07-13 12:20 | WPDHPUPDATE1 ---
History and Physical Update Update Date/Time: 07/13/23 12:20 History and Physical has been reviewed, including an updated exam of the patient. There are NO changes in the patient's condition. Risks, benefits, and alternatives have been discussed and questions answered. Patient agrees to proceed with procedure.
[2023-07-13] MEDS: ceFAZolin 2 GM/D5W 50 ML 2 GM/50 ML BAG IVPB (12:29)
[2023-07-13] MEDS: LACTATED RINGERS 1,000 ML 30 ML IV CONT (12:29)
[2023-07-13] MEDS: BUPIVACAINE/EPINEPHRINE 0.5% 50 ML VIAL 30 ML INFILTRATE (13:03)
[2023-07-13] MEDS: fentaNYL CITRATE INJ (*CRX) 100 MCG/2 ML VIAL 25 MCG IV PUSH ×4 (14:13→14:40)
--- NOTE | 2023-07-13 14:21 | P.OP_ITS ---
Procedure Note - Detailed Date of Procedure 07/13/23 Pre-op Diagnosis left inguinal hernia Post-op Diagnosis Other (Incarcerated left inguinal hernia with sigmoid colon) Procedure Performed robotic assisted repair incarcerated left inguinal hernia Surgeon Diya Jarrett MD Anesthesia General Indications 68-year-old male presenting to the office with a large left inguinal hernia Findings incarcerated left inguinal hernia with sigmoid colon Description of Procedure Patient was brought into the operating room and placed in the supine position. After adequate induction of general anesthesia, the patient was prepped and draped in normal sterile fashion. A time-out was then done to verify the patient's identity, as well as the procedure being performed. I began by making a 8 mm incision in the supraumbilical region, a Veress needle was then placed into the peritoneal cavity. CO2 gas was then insufflated and after adequate pneumoperitoneum was achieved, the Veress needle was removed. I then placed an 8 mm trocar through this incision. I then placed the endoscope through this trocar site and under direct visualization placed 2 further 8 mm ports in the right and left mid abdomen. The Ini[employer] robot was then docked to the 3 trocar sites. I then scrubbed out and went to the robotic console. Upon examining the pelvis, it was noted that the patient had a incarcerated left inguinal hernia. The right side was examined and no hernia defect was noted. I began by reducing the contents of the incarcerated left inguinal hernia. This was noted to be a large amount of sigmoid colon. Once completely reduced, the sigmoid colon was examined and noted to be viable and pathology free. I then began by making a preperitoneal flap approximately 6 cm superior to the defect. This flap was carried medially past the umbilical ligaments and laterally to the transversalis. It then began dissection of my medial compartment taking this down to the pubic tubercle. I then began the lateral dissection taking this down to the transversalis fascia. Once these compartments were achieved, I began dissection around the cord structures. A large sized indirect hernia was noted at this point. Using careful dissection, was able to reduce indirect hernia sac off the cord structures. Once this was adequately done, I went ahead and placed a large piece of 3D Max mesh into the abdominal cavity. The mesh was carefully positioned, centering the center of the mesh over the indirect defect. Once this was done, was very satisfied with our repair. Using 3-0 Vicryl sutures, I tacked the mesh medially to Beau's ligament. Two lateral sutures were placed from the mesh to the transversalis fascia. I then closed the peritoneal flap with a running 2.0 V Lock suture. The abdomen was then desufflated, and all ports were removed. All incisions were then closed with the 4.0 monocryl suture. Dermabond was placed on each wound. The patient tolerated the procedure well, was extubated in the operating room postoperatively, and will now be transferred to the recovery room in stable condition. Implants large 3DMax mesh Estimated Blood Loss 10 Drains No Packing No Pathology None sent Complications No immediate complications Condition Stable Disposition PACU [facility] Billing Surgery - Charge Forward: Surgery Billing
[2023-07-13] MEDS: oxyCODONE HCL (*CRX) 5 MG TAB IR PO (15:15)
== END 2023-07-13 16:58 | disposition home or self-care (01) ==
PROVIDERS: PCP Internal Medicine; Visit Provider Surgery
PROC: 8E0Y4CZ Robotic Assisted Procedure of Lower Extremity, Percutaneous Endoscopic Approach (ICD-10-PCS; CPT 49650; principal; 2023-07-13 12:00)
DX: K40.30 Unilateral inguinal hernia, with obstruction, without gangrene, not specified as recurrent (principal); E78.5 Hyperlipidemia, unspecified; I10 Essential (primary) hypertension; E03.9 Hypothyroidism, unspecified; M06.9 Rheumatoid arthritis, unspecified; G62.9 Polyneuropathy, unspecified; D64.9 Anemia, unspecified; N40.0 Benign prostatic hyperplasia without lower urinary tract symptoms; K21.9 Gastro-esophageal reflux disease without esophagitis; G47.33 Obstructive sleep apnea (adult) (pediatric); Z90.49 Acquired absence of other specified parts of digestive tract; Z98.1 Arthrodesis status; Z79.631 Long term (current) use of antimetabolite agent
CPT/HCPCS: 49650; S2900; 36415; 85014; 85018; 86850; 86900; 86901; 93005; A9270; C1781; J0690; J1100; J1170; J1596; J1885; J2250; J2405; J2704; J3010; J7030; J7120

== ENCOUNTER 2023-11-10 08:41 | Outpatient (CLI) | payer MEDICARE, SELFPAY ==
--- NOTE | ~2023-11-10 | MR_ITS ---
MRI of the right shoulder Technique: Axial proton-density fat-sat images, coronal proton density fat-sat and T2 fat-sat images, and sagittal T1-weighted and T2 fat-sat images were acquired. Clinical History: Pain and weakness Findings: Suspected prior subacromial decompression. There is minimal degenerative change at the AC j oint currently. Coracoclavicular, coracoacromial, and coracohumeral ligaments are intact. Probable prior rotator cuff repair surgery. The distal supraspinatus and infraspinatus tendon regions demonstrate right amorphous ill-defined signal intensity. This could reflect postoperative signal re pair tendons versus amorphous debris related to recurrent full-thickness rotator cuff tears. Subscapu nam tendon appears to be intact, with severe tendinosis. Prior complete rupture or tenodesis of the long head biceps tendon. No definite labral tear seen. Inferior glenohumeral ligament is intact. No degenerative change or effusion of the glenohumeral join t. Minimal fluid present in the subacromial/subdeltoid bursa. No muscle atrophy or edema. Impression: There is amorphous, ill-defined appearance of the distal supraspinatus and infraspinatus tendons, wit hout evidence of pleural or prior rotator cuff repair surgery. Findings could possibly reflect normal postoperative appearance of the tendons, however, recurrent full-thickness tears of these tendons wi th amorphous debris or synovitis are also possible. MR arthrogram advised to better assess for integr ity of the supraspinatus and infraspinatus tendons versus recurrent full-thickness tears. Severe subscapularis tendinosis. Prior tenodesis or otherwise rupture of the proximal long head biceps tendon. Probable prior subacromial decompression. Reviewed, dictated and finalized at [facility]. Impression: There is amorphous, ill-defined appearance of the distal supraspinatus and infr aspinatus tendons, without evidence of pleural or prior rotator cuff repair laci corey. Findings could possibly reflect normal postoperative appearance of the te ndons, however, recurrent full-thickness tears of these tendons with amorphous debris or synovitis are also possible. MR arthrogram advised to better assess f or integrity of the supraspinatus and infraspinatus tendons versus recurrent fu ll-thickness tears. Severe subscapularis tendinosis. Prior tenodesis or otherwise rupture of the proximal long head biceps tendon. Probable prior subacromial decompression.
== END 2023-11-10 08:42 | disposition home or self-care (01) ==
LOC: MICIMG 08:42
PROVIDERS: PCP Internal Medicine; Visit Provider Physician Assistant Surgical
DX: M75.31 Calcific tendinitis of right shoulder (principal); R53.1 Weakness; Z98.890 Other specified postprocedural states
CPT/HCPCS: 73221

== ENCOUNTER 2023-12-03 07:57 | Outpatient (CLI) | payer MEDICARE, SELFPAY ==
--- NOTE | 2023-12-03 09:02 | ECHO_ITS ---
Patient Info Name: Tyler Ferrara Age: 68 years : 1955 Gender: Male Ht: 70 in Wt: 200 lbs BSA: 2.14 m2 HR: 55 bpm BP: 162 / 87 mmHg Technical Quality: Good Exam Date: 12/03/2023 9:17 AM Exam Location: Echo Lab Patient Status: Outpatient Admit Date: 12/03/2023 Staff Ordering Physician: Rafy Camilo DO Sprinkling System Installer: Esme Ng RDCS Attending Provider: Rafy Camilo DO Referring Physician: Ton WINN; Exam Type: CA echo doppler color flow Study Info Indications - cardiac arrhythmia, unsp Complete two-dimensional, color flow and Doppler transthoracic echocardiogram is performed. Summary 1. Complete two-dimensional, color flow and Doppler transthoracic echocardiogram is performed. 2. Left ventricular chamber dimension is mildly enlarged. 3. Left ventricular systolic function is normal, estimated at 60-65%. 4. The left ventricular diastolic function is abnormal. 5. E/e' 10 is mildly elevated. 6. Left atrial chamber dimension is mildly enlarged. 7. There is mild mitral valve regurgitation. 8. No pulmonary hypertension, estimated pulmonary arterial systolic pressure is 30 mmHg. Left Ventricle E/e' 10 is mildly elevated. Left ventricular chamber dimension is mildly enlarged. Left ventricular systolic function is normal, estimated at 60-65%. The left ventricular diastolic function is abnormal. Right Ventricle Right ventricular systolic function is normal and with normal TAPSE 3.1 cm. Right ventricular chamber dimension is normal. Left Atria Left atrial chamber dimension is mildly enlarged. Right Atria Right atrial chamber dimension is normal. Aortic Valve The aortic valve is trileaflet. There is no aortic valve stenosis. There is no aortic valve regurgitation. Pulmonic Valve There is no pulmonic regurgitation. Mitral Valve There is no mitral valve stenosis. There is mild mitral valve regurgitation. Tricuspid Valve There is no tricuspid valve regurgitation. No pulmonary hypertension, estimated pulmonary arterial systolic pressure is 30 mmHg. Pericardium/Pleural There is no pericardial effusion. Inferior Vena Cava Normal inferior vena cava with >50% collapse upon inspiration consistent with normal right atrial pressure, 5 mmHg. Aorta The aortic root size at the sinus of Valsalva is normal. Left Ventricular Outflow Tract Name Value Normal LVOT 2D LVOT Diameter 2.3 cm LVOT Doppler LVOT Peak Gradient 2 mmHg LVOT Mean Gradient 1 mmHg LVOT VTI 17 cm LVOT VTI/AV VTI Ratio 0.7 LVOT Stroke Volume 67 ml LVOT CO 3.9 l/min LVOT CI 1.8 l/min/m2 Mitral Valve Name Value Normal MV Doppler MV Decel Daggett 381 cm/s2 MV PHT 50 ms MV Area (PHT) 4.4 cm2 4.0-5.0 MV Regurgitation Doppler MR Peak Gradient 36 mmHg MV Diastolic Function MV E Peak Velocity 66 cm/s MV A Peak Velocity 83 cm/s MV E/A 0.8 MV Decel Time 172 ms MV Annular TDI MV E/e' (Septal) 13.7 <=8.0 MV E/e' (Lateral) 8.1 <=8.0 MV E/e' (Average) 10.9 Tricuspid Valve Name Value Normal TV Regurgitation Doppler TR Peak Velocity 248 cm/s TR Peak Gradient 25 mmHg Estimated PAP/RSVP RA Pressure 5 mmHg <=5 PA Systolic Pressure 30 mmHg <36 RV Systolic Pressure 30 mmHg <36 Aortic Valve Name Value Normal AV Doppler AV Peak Velocity 107 cm/s AV Peak Gradient 5 mmHg AV Mean Gradient 3 mmHg AV VTI 26 cm AV Area (Cont Eq VTI) 2.6 cm2 >=3.0 AV Area (Cont Eq Young) 2.9 cm2 AV Regurgitation 2D LVOT Area 4.0 cm2 Ventricles Name Value Normal LV Dimensions 2D/MM IVS Diastolic Thickness (2D) 0.9 cm 0.6-1.0 LVID Diastole (2D) 5.2 cm 4.2-5.8 LVIW Diastolic Thickness (2D) 0.9 cm 0.6-1.0 LVID Systole (2D) 3.5 cm 2.5-4.0 LVOT Diameter 2.3 cm LV Mass (2D Cubed) 165.92 g 88.00-224.00 LV Mass Index (2D Cubed) 78 g/m2 49-115 Relative Wall Thickness (2D) 0.36 LV Fractional Shortening/Ejection Fraction 2D/MM LV Fractional Shortening (2D) 32 % 25-43 LV EF (2D Teicholz) 60 % 52-72 LV Diastolic Volume (4C MOD) 131 ml LV EF (4C MOD) 53 % LV Diastolic Volume (2C MOD) 124 ml LV EF (2C MOD) 65 % LV Diastolic Volume (BP MOD) 129 ml 62-150 LV Diastolic Volume Index (BP MOD) 60 ml/m2 34-74 LV Systolic Volume (BP MOD) 54 ml 21-61 LV Systolic Volume Index (BP MOD) 25 ml/m2 11-31 LV EF (BP MOD) 58 % 52-72 LV Diastolic Length (4C) 8.8 cm LV Systolic Length (4C) 7.4 cm LV Stroke Volume (4C MOD) 69 ml Atria Name Value Normal LA Dimensions LA Volume (4C A-L) 51 ml LA Volume (BP A-L) 52 ml RA Dimensions RA Area (4C) 15.7 cm2 <=18.0 Report Signatures
== END 2023-12-03 07:58 | disposition home or self-care (01) ==
PROVIDERS: PCP Internal Medicine; Visit Provider Internal Medicine
DX: I49.9 Cardiac arrhythmia, unspecified (principal); R06.00 Dyspnea, unspecified; I49.1 Atrial premature depolarization
CPT/HCPCS: 93242; 93306

== ENCOUNTER 2024-01-08 10:42 | Outpatient (CLI) | payer MEDICARE, SELFPAY ==
--- NOTE | 2024-01-08 10:47 | EST_ITS ---
Patient Info Name: Tyler Ferrara Age: 69 years : 1955 Gender: Male Ht: 70 in Wt: 199 lbs BSA: 2.13 m2 HR: 51 bpm BP: 132 / 85 mmHg Exam Date: 01/08/2024 10:55 AM Exam Location: Echo Lab Patient Status: Outpatient Admit Date: 01/08/2024 Staff Ordering Physician: Attila León DO Attending Provider: Attila León DO Exercise Technologist: Marla Hernandez RDCS Exercise Physician: Attila León DO Exam Type: CA stress test treadmill Study Info A treadmill exercise stress test was performed. Summary 1. 1. Negative Robert exercise stress test for ischemic ST changes by ECG criteria. 2. 2. Good functional capacity, achieving 7 METs of workload. 3. 3. Appropriate HR response to exercise. 4. 4. Appropriate HR recovery at 1 minute post exercise. 5. 5. No imaging with stress testing. 6. 6. Patient informed of the above results. Protocol: Robert Stress ECG Details Stage: REST Duration (min): 2 min : 37 sec Speed (mph): 0.0 Grade (%): 0 HR (bpm): 56 SBP (mmHg): 132 DBP (mmHg): 85 METS: --- Stage: REST Duration (min): 4 min : 17 sec Speed (mph): 0.0 Grade (%): 0 HR (bpm): 68 SBP (mmHg): 132 DBP (mmHg): 85 METS: --- Stage: STAGE 1 Duration (min): 1 min : 0 sec Speed (mph): 1.7 Grade (%): 10 HR (bpm): 89 SBP (mmHg): 132 DBP (mmHg): 85 METS: --- Stage: STAGE 1 Duration (min): 2 min : 0 sec Speed (mph): 1.7 Grade (%): 10 HR (bpm): 105 SBP (mmHg): 132 DBP (mmHg): 85 METS: --- Stage: STAGE 1 Duration (min): 3 min : 0 sec Speed (mph): 1.7 Grade (%): 10 HR (bpm): 99 SBP (mmHg): 145 DBP (mmHg): 79 METS: --- Stage: STAGE 2 Duration (min): 1 min : 0 sec Speed (mph): 2.5 Grade (%): 12 HR (bpm): 115 SBP (mmHg): 145 DBP (mmHg): 79 METS: --- Stage: STAGE 2 Duration (min): 2 min : 0 sec Speed (mph): 2.5 Grade (%): 12 HR (bpm): 123 SBP (mmHg): 167 DBP (mmHg): 92 METS: --- Stage: STAGE 2 Duration (min): 3 min : 0 sec Speed (mph): 2.5 Grade (%): 12 HR (bpm): 133 SBP (mmHg): 167 DBP (mmHg): 92 METS: --- Stage: RECOVERY Duration (min): 0 min : 59 sec Speed (mph): 0.0 Grade (%): 0 HR (bpm): 114 SBP (mmHg): 172 DBP (mmHg): 75 METS: --- Stage: RECOVERY Duration (min): 1 min : 59 sec Speed (mph): 0.0 Grade (%): 0 HR (bpm): 81 SBP (mmHg): 172 DBP (mmHg): 75 METS: --- Stage: RECOVERY Duration (min): 2 min : 59 sec Speed (mph): 0.0 Grade (%): 0 HR (bpm): 71 SBP (mmHg): 158 DBP (mmHg): 96 METS: --- Stage: RECOVERY Duration (min): 3 min : 3 sec Speed (mph): 0.0 Grade (%): 0 HR (bpm): 72 SBP (mmHg): 158 DBP (mmHg): 96 METS: --- Rest HR: 68 bpm Peak HR: 133 bpm Rest Sys BP: 132 mmHg Peak Sys BP: 172 mmHg Max Pred HR: 150 bpm % Max Pred HR: 89 % Target HR: 128 bpm Max RPP: 22,876 bpm*mmHg Hanna Score: -7 Termination Reason: Reached target heart rate or workload Cardiac Symptoms: Shortness of breath Max ST Seg Deviation: 2.60 mm Total Time: 6 min : 0 sec Rest Talavera BP: 85 mmHg Peak Talavera BP: 75 mmHg Angina Score: None Total METS: 7.1 Resting ECG Sinus rhythm, cannot r/o septal infarct, age indeterminate. Stress ECG No ST changes. Arrhythmias None. Report Signatures
== END 2024-01-08 10:43 | disposition home or self-care (01) ==
LOC: ANHCARD 10:43
PROVIDERS: PCP Internal Medicine; Visit Provider Internal Medicine Cardiovascular Disease
DX: I47.29 Other ventricular tachycardia (principal)
CPT/HCPCS: 93017

== ENCOUNTER 2024-07-31 07:48 | Outpatient (CLI) | payer MEDICARE, SELFPAY ==
--- NOTE | ~2024-07-31 | US_ITS ---
EXAM: US right upper quadrant07/31/2024 7:55 CDT TECHNIQUE: Ultrasound of the right upper quadrant of the abdomen was performed. COMPARISONS: None available. FINDINGS: LIVER: Increased echogenicity, compatible with mild hepatic steatosis. No discrete liver masses are n oted. PORTAL VEIN: Main portal vein is patent in its visualized portion, with normal direction of flow. INTRAHEPATIC BILE DUCTS: Nondilated. COMMON BILE DUCT: 5 mm. Normal caliber. GALLBLADDER: Cholelithiasis without evidence of gallbladder wall thickening or pericholecystic fluid. The gallbladder was not tender to transducer palpation. PANCREAS: Partially visualized portions are normal. IMPRESSION: Mild hepatic steatosis. Cholelithiasis. Reviewed, dictated and finalized at location A.
== END 2024-07-31 07:49 | disposition home or self-care (01) ==
LOC: MICIMG 07:49
PROVIDERS: PCP Internal Medicine; Visit Provider Physician Assistant
DX: K76.0 Fatty (change of) liver, not elsewhere classified (principal); K80.20 Calculus of gallbladder without cholecystitis without obstruction
CPT/HCPCS: 76705

== ENCOUNTER 2024-09-22 17:19 | Emergency (ER) | payer MEDICARE, SELFPAY ==
--- OUTSIDE RECORDS SUMMARY | 2024-09-22 17:21 | XMS_ITS | Clinical Summary ---
Author Organization [facility] Address [address] [place] [address] Phone Care Team Providers Care Checkroom Attendant Name Role Phone Rafy Camilo Primary Care Provider [phone] Allergies No known active allergies Medications EZETIMIBE (ZETIA ORAL) Take by mouth. Ac tive traZODone (DESYREL) 50 mg tablet trazodone 50 mg tablet Active tamsulosin (FLOMAX) 0.4 mg capsule TK 1 C PO D 0 Active sulfaSALAzine (AZULFIDINE EN-TAB) 500 mg Tablet, Delayed Release (E.C.) 0 Active sennosides-docu sate sodium (SENNA-S) 8.6-50 mg tablet Take 2 Tablets by mouth. 8 Active omeprazole (PriLOSEC) 20 mg Capsule, Delayed Release(E.C.) Take 20 mg by mouth daily at bedtime. Active nortriptyline (PAMELOR) 25 mg capsule TAKE 1 CAPSULE BY MOUTH NIGHTLY FOR 1 WEEK, THEN INCREASE TO 2 CAPSULES NIGHTLY 0 Active Multivitamin Capsule Take 1 Capsule by mouth. Active methotrexate (RHEUMATREX) 2.5 mg Tablet TK 8 TS PO Q 7 DAYS 0 Active loratadine (CLARITIN) 10 mg tablet Take 10 mg by mouth. Active levothyroxine 50 mcg tablet Take 50 mcg by mouth. Active hydrOXYchloroQU INE (PLAQUENIL) 200 mg tablet 0 Active gemfibroziL (LOPID) 600 mg tablet 600 mg. 5 Active gabapentin (NEURONTIN) 400 mg capsule 0 Active folic acid (FOLVITE) 1 mg tablet TK 1 T PO D 0 Active baclofen (LIORESAL) 10 mg tablet 0 Active ascorbic acid (VITAMIN C) 500 mg Tablet, Chewable Take 500 mg by mouth. Active diphenhydrAMINE -acetaminophen (TYLENOL PM) 25-500 mg Tablet Take 1 Tablet by mouth. Active aspirin (ECOTRIN EC) 81 mg Tablet, Delayed Release (E.C.) Take 81 mg by mouth. Active fluticasone propionate (FLONASE) 50 mcg/spray [place], Suspension nasal inhaler INSTILL 2 SPRAYS INTO EACH NOSTRIL DAILY NEEDED FOR NASAL CONGESTION 1 Active traZODone (DESYREL) 150 mg tablet Take 150 mg by mouth daily at bedtime. 1 Active finasteride (PROSCAR) 5 mg tablet Take 5 mg by mouth daily. 1 Active HYDROcodone-iam taminophen (NORCO) 5-325 mg tablet Take 1 Tablet by mouth. 1 Active levoFLOXacin (LEVAQUIN) 500 mg tablet Take 500 mg by mouth daily. 1 Active Active Problems Problem Noted Date Diagnosed Date Chronic anemia 10/09/2019 Encounters Date Type Department Care Team Description 07/22/2024 External Device Data ST[facility] ABSTRACTION Provider, Abstract 06/26/2024 External Device Data [facility] ABSTRACTION Provider, Abstract 06/26/2024 External Device Data [facility] ABSTRACTION Provider, Abstract 06/25/2024 External Device Data [facility] ABSTRACTION Provider, Abstract 06/24/2024 External Device Data [facility] ABSTRACTION Provider, Abstract from Last 3 Months Family History Medical History Relation Name Comments Cancer Father Hypertension Father Cancer Mother esophageal Cancer Son Relation Name Status Comments Father Mother Sister 1 Alive Sister 2 Alive Son Alive Social History Tobacco Use Types Packs/Day Years Used Date Smoking Tobacco: Never Smokeless Tobacco: Never Tobacco Cessation:Counseling Given: Not Answered Alcohol Use Standard Drinks/Week Comments Yes 0 (1 standard drink = 0.6 oz pur e alcohol) occasional Sex and Gender Information Value Date Recorded Sex Assigned at Not on file Legal Sex Male 6:05 AM PROGRAM PARAPROFESSIONAL Gender Identity Not on file Sexual Orientation Not on file Last Filed Vital Signs Vital Sign Reading Time Taken Comments Blood Pressure 135/87 01/14/2024 9:43 AM PROGRAM PARAPROFESSIONAL Pulse 65 01/14/2024 9:43 AM PROGRAM PARAPROFESSIONAL Temperature 36.4 C (97.5 F) 01/14/2024 9:43 AM PROGRAM PARAPROFESSIONAL Respiratory Rate 16 01/14/2024 9:43 AM PROGRAM PARAPROFESSIONAL Oxygen Saturation 96% 01/14/2024 9:43 AM PROGRAM PARAPROFESSIONAL Inhaled Oxygen Concentration - - Weight 91.5 kg (201 lb 12.8 oz) 01/14/2024 9:43 AM PROGRAM PARAPROFESSIONAL Height 177.8 cm (5' 10) 06/27/2021 9:08 AM CDT Body Mass Index 28.96 06/27/2021 9:08 AM CDT Plan of Treatment Upcoming Encounters Date Type Department Care Team (Late st Contact Info) Description 01/13/2025 10:00 AM PROGRAM PARAPROFESSIONAL Office Visit [facility] Oncology and Hematology [facility] [address] [address] [place] [address] Navneet Rodriguez MD [address] [facility] [address] [place] [address] Health Maintenance Due Date Last Done Comments Pre-Diabetes and Diabetes Screening 1955 PNEUMOCOCCAL VACCINE 50+ YEA RS (1 of 2 - PCV) 1973 ZOSTER VACCINE (1 of 2) 1973 FIT-DNA Q 3 years 1999 FIT/FOBT Q 1 year 1999 Flex Sig/CT Colonography Q 5 years 1999 RSV VACCINE (60+ or ) (1 - Risk 60-74 years 1-dose series) 2014 COVID-19 Vaccine (3 - Modern a risk series) 05/27/2020 04/29/2020, 04/01/2020 DTAP/TDAP/TD VACCINES (2 - T d or Tdap) 12/20/2023 12/19/2013 INFLUENZA VACCINE (#1) 2024 , 10/17/2019, 11/04/2018, Additional history exists COLORECTAL SCREENING 06/16/2029 06/17/2019, 06/17/19 20 Colorectal Cancer Screening 06/16/[address] [facility] Care Teams Checkroom Attendant Relationship Specialty Start Date End Date Rafy Camilo DO [id number] [facility] [address] [place] [id number] PCP - General Internal Medicine 01/14/24
--- OUTSIDE RECORDS SUMMARY | 2024-09-22 17:21 | XMS_ITS | Encounter Summary ---
Author Organization [facility] Address [address] [place] [address] Care Team Providers Care Photographic Equipment Mechanic Name Role Phone Kale Rose DO Primary Care Provider Encounter Details Date Type Department Care Team (Late st Contact Info) Description 07/18/2024 Lab Requisition [facility] - DermPath Lab [address] [place] [id number] Jovany Vaughn MD [facility] DERMATOLOGY [address] [place] [phone] Neoplasm of uncertain behavior of skin Social History Tobacco Use Types Packs/Day Years Used Date Smoking Tobacco: Never Assessed Sex and Gender Information Value Date Recorded Sex Assigned at Not on file 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 Gender Identity Not on file Sexual Orientation Not on file documented as of this encounter Plan of Treatment Not on file documented as of this encounter Procedures Procedure Name Priority Date/Time Associated Diagnosis Comments DERMATOPATHOLOGY Routine 07/18/2024 12:0 0 AM CDT Neoplasm of uncertain behavior of skin documented in this encounter Results * DERMATOPATHOLOGY (07/18/2024 12:00 AM CDT) Case Report Dermatopathology Report Case: [id number] Authorizing Provider: Jovany Vaughn MD Collected: 07/18/2024 12:00 AM Ordering Location: [facility] - Received: 07/21/2024 10:58 AM DermPath Lab Pathologist: Martita Harley MD Specimen: Skin, right cheek 2:24 PM CDT DERMATOPATHOLOGY LABORATORY Final Diagnosis Specimen A. SKIN, right cheek: BASAL CELL CARCINOMA, NODULAR TYPE (C44.319) 2:24 PM CDT DERMATOPATHOLOGY LABORATORY at 1424 CDT Clinical History Cyst vs BCC 2:24 PM CDT DERMATOPATHOLOGY LABORATORY Gross Description Specimen A: Received is one formalin filled container labeled with the patient's name and designated right cheek. The specimen consists of a shave biopsy measuring 6x5x1 mm. Jar 0. 2:24 PM CDT DERMATOPATHOLOGY LABORATORY Microscopic Description Specimen A. SKIN, right cheek: Within the dermis there are aggregates of basaloid cells with a high nuclear to cytoplasmic ratio and peripheral palisading. 2:24 PM CDT DERMATOPATHOLOGY LABORATORY Disclaimer An external and internal positive and negative controls are appropriate for the histochemical, immunohistochemical and immunofluorescence stain(s) in this case (if any), except where stated explicitly. The performance characteristics of the stain(s) cited in this report were developed and its performance characteristic determined by the Dermatopathology Laboratory at [facility], directed by Dr. Vaughn Harley. These tests need not be, and therefore are not, approved by the [place] Food and Drug Administration. The tests are used for clinical purposes. Billing Codes Specimen Charges Stain Charges 15135 1 2:24 PM CDT DERMATOPATHOLOGY LABORATORY Embedded Images 2:24 PM CDT DERMATOPATHOLOGY LABORATORY Pathology/Cytolog y TISSUE SPECIMEN FROM SKIN / Unknown 07/18/2024 07/21/2024 10:58 AM CDT Jovany Vaughn MD LAB - PATHOLOGY/CYTOLOGY ORDE TRACEY Final Result DERMATOPATHOLOGY LABORATORY [facility] - Department of Dermatology [address], [address] [phone] documented in this encounter Visit Diagnoses Diagnosis Neoplasm of uncertain behavior of skin documented in this encounter Care Teams Photographic Equipment Mechanic Relationship Specialty Start Date End Date Kale Rose DO [address] [facility] [address] [facility] [address] [place] [address] PCP - General Internal Medicine 01/11/15 documented as of this encounter
--- OUTSIDE RECORDS SUMMARY | 2024-09-22 17:21 | XMS_ITS | Patient Health Record ---
Author Organization [facility] Address [address] [place] [address] Care Team Providers Care Facility Engineer Name Role Phone Antonio Carty Primary Care Provider [phone] Reason For Referral No Information Immunizations Vaccine Route Administration Date Status Comme nts COVID-19 Moderna 2nd IM Intramuscular 04/29/2020 Administered COVID-19 Moderna 1ST IM Intramuscular 04/01/2020 Administered EUA provided. Screening and consent reviewed and signed. Pt tolerated well. Plan Of Treatment No Information Insurance Providers Payer Name Payer Address Payer Phone Subscriber Number Group Number Insured Name Patient Relationship to Insured Coverage Start Date Coverage End Date [employer] Medicare [address] [place] [phone] [id number] Tyler Ferrara Self - patient is the insured
--- OUTSIDE RECORDS SUMMARY | 2024-09-22 17:21 | XMS_ITS | Encounter Summary ---
Author Organization [facility] Address [address] [place] [address] Care Team Providers Care Cyber Instructor Name Role Phone Kale Rose MD Primary Care Provider + [phone] Kale Rose MD Unavailable [phone] Eliseo Nazario MD Unavailable [phone] Apolonia Schmitz RN Unavailable Unavailab Ezekiel Mckinney MD Unavailable [phone] Zoe Zavala MD Unavailable [phone] Mery Lechuga OD Unavailable [phone] Navneet Rodriguez MD Unavailable [phone] Rafy Camilo DO Primary Care Provider [phone] Reason for Visit * Reason Onset Date Comments PMC Preprocedure 07/20/2023 Encounter Details Date Type Department Care Team (Late st Contact Info) Description 07/20/2023 Telephone [facility] [address] [facility] [address] [place], [place] [id number] Zoe Zavala MD [address] [facility] [address] [facility] [phone] [place], [place] [phone] PMC Preprocedure Social History Tobacco Use Types Packs/Day Years Used Date Smoking Tobacco: Never Smokeless Tobacco: Never Alcohol Use Standard Drinks/Week Comments Yes 0 (1 standard drink = 0.6 oz pur e alcohol) occasional AUDIT-C Answer Date Recorded Q1: How often do you have a drink containing alc ohol? 2-4 times a month 06/11/2023 Q2: How many drinks containi ng alcohol do you have on a typical day when you are drinking? 3 or 4 06/11/2023 Q3: How often do you have si x or more drinks on one occasion? Never 06/11/2023 Hunger Vital Sign Answer Date Recorded Within the past 12 months, y ou worried that your food would run out before you got the money to buy more. Never true 06/11/19 24 Within the past 12 months, t he food you bought just didn't last and you didn't have money to get more. Never true 06/11/2023 Sex and Gender Information Value Date Recorded Sex Assigned at Not on file Legal Sex Male 11:58 PM AUDIO/VIDEO ENGINEER Gender Identity Male 01/14/2020 12:17 PM AUDIO/VIDEO ENGINEER Sexual Orientation Straight 05/31/2019 8: 40 AM CDT documented as of this encounter Plan of Treatment Not on file documented as of this encounter Goals Goal Patient Goal Type Associated Problems Recent Progress Patient-Stated? Author CCM Chronic Pain Care Plan Chronic Care Management No change(11/06 2:38 PM CDT) No Alexsandra Zhang RN Note: Problem: Chronic Pain Goals: 1. Minimize further functional decline 2. Maximize quality of life 3. Control pain Strategies: - Activity/exercise program recommendation - Conservative stepwise pain medicine strategy with multi-disciplinary approach - Recommend healthy lifestyle strategies and compensatory methods as needed documented as of this encounter Visit Diagnoses Not on filedocumented in this encounter Additional Health Concerns Infection Onset Date Last Indicated Resolved Time COVID19 Comment:01/17/2020 03/15/2020 03/14/2020 documented as of this encounter Care Teams Cyber Instructor Relationship Specialty Start Date End Date Kale Rose MD [address] [address] PCP - General 02/18/20 03/26/24 Santosh CamiloeDO [address] [place], [place] [phone] PCP - General Internal Medicine 03/27/24 Kale Rose MD [address] [place] [address] 02/18/20 Eliseo Nazario MD [address] [place] [address] Rheumatology 01/04/17 Apolonia Schmitz, RN Registered Nurse 11/18/18 Ezekiel Key MD Referring Physician Gastroenterology 04/28/19 Zoe Zavala MD [address] [facility] [address] [facility] [phone] [place] [address] Anesthesiologist Pain Management 10/13/20 Mery Lechuga OD [address] [place] [address] Optometry 10/19/21 Navneet Rodriguez MD [address] [facility] [address] [place] [phone] Referring Physician Hematology 12/20/21 documented as of this encounter
--- OUTSIDE RECORDS SUMMARY | 2024-09-22 17:21 | XMS_ITS ---
Author Organization 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 Has no tenderness to palpation and/or guarding on exam. Recent LFTs have been WNL. Will recheck serologies, including amylase and lipase. If symptoms persist, have given orders for right upper quadrant ultrasound to evaluate further. Sacroiliitis 10/22/2023 Muscle cramping 09/27/2023 Assessment & Plan (09/27/2023 9:35 AM CDT): Discussed increased fluids and electrolytes. Recommended bananas, oranges, green leafy vegetables. Will check magnesium level today. Acute pain of right shoulder 09/27/2023 Assessment & Plan (03/31/2024 10:26 AM PARAPROFESSIONAL AIDE): Has had previous right rotator cuff repair. Is following with Orthopedics. Orthopedics has noted another rotator cuff tear and recommended reverse shoulder arthroplasty, which he defers at this time. Completed physical therapy without significant benefit. Continue to follow with Orthopedics. Assessment & Plan (12/28/2023 10:14 AM PARAPROFESSIONAL AIDE): Has had previous right rotator cuff repair. Is following with Orthopedics. Orthopedics has noted another rotator cuff tear and recommended reverse shoulder arthroplasty, which she defers at this time. Has been given orders to begin physical therapy. Is considering intra-articular steroid injection, if symptoms persist after PT. continue to follow with Orthopedics. Assessment & Plan (09/27/2023 9:36 AM CDT): Had previous right rotator cuff repair. Recently has noted pain in the right shoulder with pain elicited on exam with resisted external rotation and flexion. Is scheduled to see Orthopedics for further evaluation. Chronic pain of left knee 03/23/2023 Assessment & Plan (03/23/2023 9:01 AM PARAPROFESSIONAL AIDE): Since last visit, has noted increased left knee pain. Has had previous left TKA. Is in the process scheduling with a new orthopedic physician for evaluation. Defers an x-ray at this time. Angular cheilitis 09/11/2022 Assessment & Plan (09/11/2022 9:27 AM CDT): Following with derm. CMC arthritis 06/19/2022 Assessment & Plan (12/12/2022 9:06 AM PARAPROFESSIONAL AIDE): Has chronic residual bilateral CMC discomfort (worse on the left). Has deferred OT for CMC bracing. Previously did discuss information on obtaining CMC brace through [employer]. Previous left CMC injection, did offered temporary benefit. Could consider repeat injection, if symptoms worsened. Assessment & Plan (09/11/2022 9:26 AM CDT): Has chronic residual bilateral CMC discomfort. Left CMC injection after last did offer some benefit. Has deferred OT for CMC bracing. Previously did discuss information on obtaining CMC brace through [employer]. Assessment & Plan (06/19/2022 8:58 AM CDT): A primary complaint today is persistent bilateral CMC discomfort, which is much more significant on the left. Continues to defer OT for CMC bracing. Discussed left ultrasound-guided CMC injection, which was amenable to. Discussed risks and benefits. We did also discuss information on obtaining CMC brace through [employer]. Neck pain 12/19/2021 Assessment & Plan (12/19/2021 9:02 AM PARAPROFESSIONAL AIDE): Has previously been evaluated by Neurosurgery with recommendations for neck surgery, per his report, which she deferred. Neck pain has exacerbated since a recent fall off recumbent bike 2 weeks prior. Will obtain baseline imaging and sent to physical therapy. Acute pain of left shoulder 12/19/2021 Assessment & Plan (03/20/2022 2:09 PM PARAPROFESSIONAL AIDE): Left shoulder pain developed after fall from a bike. Did have a shoulder xray without significant findings, per his report, although not available for review. Has pain elicited with left shoulder abduction along with TTP over left anterior shoulder. Discussed PT at last visit and was given orders. Did not proceed with this. Defers at this time. He also defers referral to shoulder Orthopedics. Could reconsider these options if symptoms persist Assessment & Plan (12/19/2021 9:03 AM PARAPROFESSIONAL AIDE): Left shoulder pain developed after recent fall for comment bike. Did have a shoulder xray without significant findings, per his report, although not available for review. Has positive empty can test on left shoulder along with pain elicited with resisted external rotation. Suspect rotator cuff etiology. Will send to physical therapy. Numbness and tingling in left hand 12/19/2021 Assessment & Plan (12/19/2021 9:05 AM PARAPROFESSIONAL AIDE): Has numbness and tingling in the ulnar distribution of the left hand. He defers EMG at this time. Could reconsider if symptoms worsen. Thoracic facet joint syndrome 09/09/2021 Chronic bilateral thoracic back pain 08/09/2021 Osteoarthritis of spine with radiculopathy, lumb ar region 06/27/2021 Left foot pain 05/12/2021 Overview (08/23/2021): X-ray left foot 08/19/2021: No significant concerning findings Assessment & Plan (08/18/2021 9:17 AM CDT): Continues to have pain over the left foot 1st toe. It is noted that he did drop a brick on this toe several months prior. Suspect RA is contributing to his symptoms. Will obtain x-ray. Assessment & Plan (05/12/2021 9:03 AM CDT): Dropped a brick on his left foot 2 weeks prior with persistent pain over the 1st toe. Will obtain x-ray to ensure no fracture. H/O systemic steroid therapy 11/10/2020 Assessment & Plan (08/18/2021 9:16 AM CDT): He notes compression fracture seen on recent imaging per Orthopedic surgery. Given this along with his rheumatoid arthritis and systemic steroid history, given orders for DEXA scan, which is still pending at this time. Assessment & Plan (05/12/2021 9:02 AM CDT): He notes compression fracture seen on recent imaging per Orthopedic surgery. Given this along with his rheumatoid arthritis and systemic steroid history, given orders for DEXA scan, which is pending at this time. Re-discussed today. Assessment & Plan (02/08/2021 10:46 AM PARAPROFESSIONAL AIDE): He notes compression fracture seen on recent imaging per Orthopedic surgery. Given this along with his rheumatoid arthritis and systemic steroid history, would like to obtain DEXA scan. dexa orders still pending. Assessment & Plan (11/10/2020 10:15 AM CDT): He notes compression fracture seen on recent imaging per Orthopedic surgery. Given this along with his rheumatoid arthritis and systemic steroid history, would like to obtain DEXA scan. Thoracic spine pain 10/13/2020 Assessment & Plan (10/13/2020 2:21 PM CDT): CT thoracic spine 09/2020 1. Advanced progressive degenerative changes at T10-T11 when compared to prior CT with corresponding T2/STIR hyperintense signal likely representing sequela of chronic repetitive stress injury given the near complete disc space height loss, disc vacuum phenomena, endplate sclerosis, and subchondral cyst formation. There may be associated developing junctional kyphosis at this level. 2. In the setting of anterior erosive changes at T10-T11, discitis/osteomyelitis cannot be entirely excluded though is considered unlikely given the disc vacuum phenomena. Correlation with markers of infection is recommended and if there is clinical suspicion for infectious etiology, then a contrast MRI may be indicated for further evaluation. 3. Mild progression of degenerative endplate changes at T8-T9, less pronounced than at T10-11. 4. Slight lucency surrounding the screws at T11 may indicate hardware loosening. This is a primary complaint today. Recent labs 10/12/2020 revealed normal WBC count TENs CRP/ESR WNL making an infectious etiology much less likely. He was prescribed Medrol Dosepak per Pain Management yesterday. Dr. Lubin did speak with Dr. Zavala, PM, and have decided to hold off on this at present. Recommended follow-up with Ortho Spine for further evaluation. Thoracic radiculitis 10/12/2020 Status post gastrointestinal surgery 08/21/2019 Leakage of surgical anastomosis of genitourinary tract 08/06/2019 Postprocedural intraabdominal abscess 08/06/2019 Crohn's disease of both smal l and large intestine with intestinal obstruction 07/07/2019 Overview (07/07/2019): Added automatically from request for surgery [id number] Crohn's disease of both small and large intestin e 07/03/2019 Anemia, unspecified 06/25/2019 Assessment & Plan (12/19/2021 9:00 AM PARAPROFESSIONAL AIDE): Has had prior blood transfusions. Follows with [facility], Dr. Michael Toth. Will add additional labs for heme, per patient request. Assessment & Plan (06/25/2019 10:59 AM CDT): S/p transfusion x2. Will recheck today. Stricture of colon 05/06/2019 Assessment & Plan (09/22/2019 12:32 PM CDT): S/p ileocolic resection surgery. Assessment & Plan (07/11/2019 9:16 AM CDT): Is scheduled for ileocolic resection surgery in two weeks. Assessment & Plan (06/25/2019 10:34 AM CDT): Following with GI. Anticipating a possible need for surgery. Chronic use of opiate drug for therapeutic purpo se 08/30/2018 Post laminectomy syndrome 08/30/2018 Dyspnea 04/02/2018 Overview (07/11/2019): Chest x-ray 05/2018: WNL Bilateral lower extremity Doppler ultrasound arterial 06/2019: Normal Assessment & Plan (04/15/2019 11:01 AM CDT): Again, patient notes dyspnea with minimal exertion. Chest x-ray few months prior, which was normal, per his report. Will obtain these results. Given new chest x- ray order and PFT orders today to ensure no ild. Discuss further with pcp. Assessment & Plan (07/16/2018 9:51 AM CDT): Did not obtain CXR ordered at last visit. Notes symptoms resolved at this time. Assessment & Plan (04/02/2018 11:39 AM PARAPROFESSIONAL AIDE): As above, will obtain CXR. Advised to fu with PCP. Encounter for long-term (current) use of medicat ions 03/04/2018 Assessment & Plan (07/09/2024 10:12 AM CDT): Routine labs today. Continue routine eye exams. Assessment & Plan (03/31/2024 10:26 AM PARAPROFESSIONAL AIDE): Routine labs today. Continue routine eye exams. Assessment & Plan (12/28/2023 10:14 AM PARAPROFESSIONAL AIDE): Routine labs today. Continue routine eye exams. Assessment & Plan (09/27/2023 9:35 AM CDT): Routine labs today. Continue routine eye exams. Request hemoglobin A1c today, as we would like to be screened for type 2 diabetes. Assessment & Plan (06/21/2023 10:47 AM CDT): Continue routine lab monitoring Hepatitis negative 2014 Maintain routine eye exams throughout the duration of taking hydroxychloroquine Assessment & Plan (12/12/2022 9:06 AM PARAPROFESSIONAL AIDE): Routine labs today. Continue routine eye exams. Assessment & Plan (09/11/2022 9:27 AM CDT): Routine labs today. Continue routine eye exams. Assessment & Plan (06/19/2022 8:57 AM CDT): Routine labs today. Continue routine eye exams. Assessment & Plan (03/20/2022 2:10 PM PARAPROFESSIONAL AIDE): Routine labs today. Continue routine eye exams. Assessment & Plan (12/19/2021 9:00 AM PARAPROFESSIONAL AIDE): Routine labs today. Continue routine eye exams. Assessment & Plan (10/19/2021 9:26 AM CDT): Routine labs today. Continue routine eye exams. Assessment & Plan (08/18/2021 9:01 AM CDT): Routine labs today. Continue routine eye exams. Assessment & Plan (02/08/2021 10:46 AM PARAPROFESSIONAL AIDE): Routine labs today. Continue routine eye exams. Assessment & Plan (11/10/2020 10:13 AM CDT): Routine labs today. Continue routine eye exams. Assessment & Plan (08/10/2020 9:43 AM CDT): Routine labs today. Continue routine eye exams. Assessment & Plan (05/11/2020 9:13 AM CDT): Routine labs today. Continue routine eye exams. Assessment & Plan (02/13/2020 10:37 AM PARAPROFESSIONAL AIDE): Routine labs today. Continue routine eye exams. Assessment & Plan (11/03/2019 9:26 AM CDT): Routine labs today. Continue routine eye exams. Assessment & Plan (09/22/2019 12:32 PM CDT): Routine labs today. Continue routine eye exams. Assessment & Plan (07/11/2019 9:14 AM CDT): Routine labs today. Continue routine eye exams. Assessment & Plan (06/25/2019 10:32 AM CDT): Routine labs today. Continue routine eye exams. Assessment & Plan (04/15/2019 11:00 AM CDT): Routine labs today. Continue routine eye exams. Assessment & Plan (01/14/2019 10:29 AM PARAPROFESSIONAL AIDE): Routine labs today. Continue routine eye exams. Assessment & Plan (10/15/2018 12:12 PM CDT): Routine labs today. Continue routine eye exams. Assessment & Plan (07/16/2018 9:52 AM CDT): Routine labs today. Continue routine eye exams. Assessment & Plan (03/04/2018 9:16 AM PARAPROFESSIONAL AIDE): Routine labs today. Continue routine eye exams. Hyperlipemia 11/28/2017 Insomnia 11/28/2017 GERD (gastroesophageal reflux disease) 8 Urinary retention 11/28/2017 Constipation 11/28/2017 Pseudarthrosis following spinal fusion 8 Overview (10/01/2017): Added automatically from request for surgery [id number] Scoliosis 10/01/2017 Overview (10/01/2017): Added automatically from request for surgery [id number] Spinal stenosis, lumbar wilfredo on, with neurogenic claudication 10/01/2017 Overview (10/01/2017): Added automatically from request for surgery [id number] Chills without fever 09/10/2017 Assessment & Plan (04/02/2018 11:39 AM PARAPROFESSIONAL AIDE): Continues to be a primary complaint for patient. Uncertain on the etiology of the symptoms, although less suspicious for rheumatology medications as the cause for this. Patient has not taken MTX medication this week and has yet to have a return in symptoms to this point. Will continue to hold MTX at this time and have patient call in two weeks. If symptoms returned, would restart MTX. If no return, would consider alternative dmard, such as arava, which was discussed with patient today. Does note some mild dyspnea with two flights of stairs. Will obtain CXR at this time. Assessment & Plan (09/10/2017 9:45 AM CDT): This is been ongoing for approximately 6 months and worsening. Etiology is uncertain at this time. His methotrexate dose was decreased from 20 mg to 12.5 mg weekly 2 weeks ago and he is feeling a little better over last several days. I am uncertain if this is secondary to his methotrexate or not. Will obtain labs as below. I discussed obtaining a chest x-ray although he wants to have defer this at this time. Chronic bilateral low back pain with left-sided sciatica 10/30/2016 Overview (02/12/2017): Is s/p surgical intervention x 2 although still with ongoing pain. Follows with pain management and spine surgery. On lyrica which helps some. On tizanidine with mild benefit. Assessment & Plan (05/12/2021 9:01 AM CDT): Status post lumbar fusion on 11/28/2017. Notes persistent lower back pain with L sided radicular symptoms. Continue to follow with Pain management for epidural injections, which have offered benefit. Followed up with orthopedic surgeon after last visit. He recommended surgical intervention, although Alvarado defers at this time. Assessment & Plan (02/08/2021 10:46 AM PARAPROFESSIONAL AIDE): Status post lumbar fusion on 11/28/2017. Notes persistent lower back pain with L sided radicular symptoms. Continue to follow with Pain management for epidural injections, which have offered benefit. Previously followed up with orthopedic surgeon, although have decided against surgical intervention at this time. Assessment & Plan (11/10/2020 10:15 AM CDT): Status post lumbar fusion on 11/28/2017. Notes persistent lower back pain with L sided radicular symptoms. Continue to follow with Pain management for epidural injections, which have previously offered benefit. He had followed up with orthopedic surgeon since last visit, although have decided against surgical intervention at this time. Assessment & Plan (10/13/2020 2:18 PM CDT): Status post lumbar fusion on 11/28/2017. Does have some persistent lower back pain with L sided radicular symptoms. Continue to follow with Pain management for epidural injections, which does offer benefit. Have recommended follow up with surgeon Assessment & Plan (08/10/2020 9:43 AM CDT): Status post lumbar fusion on 11/28/2017. Notes persistent lower back pain with L sided radicular symptoms. Continue to follow with Pain management for epidural injections, which does offer benefit. Is scheduled to follow up with surgeon in the next few weeks. Assessment & Plan (05/11/2020 9:13 AM CDT): Status post lumbar fusion on 11/28/2017. Continue to follow with Pain management for epidural injections, which does offer benefit. Assessment & Plan (02/13/2020 10:37 AM PARAPROFESSIONAL AIDE): Status post lumbar fusion on 11/28/2017. Continue to follow with Pain management for epidural injections, which does offer benefit. Significant benefit with recent epidural injection. Assessment & Plan (06/25/2019 10:34 AM CDT): Status post lumbar fusion on 11/28/2017. Continues to note some lower back pain with radicular symptoms, although improved from surgery. Continue to follow with Pain management for epidural injections, which does offer benefit. Assessment & Plan (04/15/2019 11:02 AM CDT): Status post lumbar fusion on 11/28/2017. Continues to note some lower back pain with radicular symptoms, although much improved from surgery. Continue to follow with Pain management for epidural injections, which does offer benefit. Assessment & Plan (01/14/2019 10:29 AM PARAPROFESSIONAL AIDE): Status post lumbar fusion on 11/28/2017. Continues to note some lower back pain with radicular symptoms, although much improved from surgery. Continue to follow with Pain management for epidural injections, which does offer benefit. Assessment & Plan (10/15/2018 12:12 PM CDT): Status post lumbar fusion on 11/28/2017. Does continue to note persistent lower back pain with some radicular symptoms into the feet. Assessment & Plan (07/16/2018 9:52 AM CDT): Status post lumbar fusion on 11/28/2017. Continue to follow with Pain Management spinal surgery. Assessment & Plan (04/02/2018 11:36 AM PARAPROFESSIONAL AIDE): S/p lumbar fusion on 11/28/2017. Continue to follow with PM and spinal surgery. Assessment & Plan (03/04/2018 9:15 AM PARAPROFESSIONAL AIDE): S/p fusion on 11/28/2017 with persistent back pain and radicular symptoms down the R leg. Is scheduled to see surgeon next week. Assessment & Plan (2018 11:13 AM PARAPROFESSIONAL AIDE): Patient is S/p S1-T10 fusion on 11/28/2017. Tolerated surgery well and symptoms are beginning to improve. Assessment & Plan (09/10/2017 9:44 AM CDT): He is to have lumbar spine fusion revision surgery in November. He is on Lyrica 150 mg daily which he decreased last week b.i.d. as he wants to see how he does off this. Can decrease this to every other day for 1 week then stop. Assessment & Plan (06/11/2017 1:54 PM CDT): Is s/p surgical intervention x 2 although still with ongoing significant pain. Follows with pain management and spine surgery. On lyrica which helps some although he recently decreased dose from 150 mg bid to daily to try to limit his meds. On tizanidine 4 mg tid with mild benefit. Cont spinal surgery follow up which he has a discogram scheduled for next week. Assessment & Plan (02/12/2017 12:37 PM PARAPROFESSIONAL AIDE): Still with ongoing low back pain which he is s/p 2 L-spine surgieries with no benefit. Follows with ortho spine. On lyrica and tizanidone with mild benefit. Assessment & Plan (01/04/2017 9:59 AM PARAPROFESSIONAL AIDE): Had a failed L-spine fusion last year and had revision of this last month by Dr. Ck Rea. Still with ongoing pain. There is concern on Dr. Rea's part that his bones may be osteoporotic due to failed L-spine fusion per pt report. Is noted recent Vit D level normal. Due to his RA he is at higher risk of osteopenia/osteoporosis. Will obtain DEXA bone density for further evaluation. Assessment & Plan (10/30/2016 9:10 AM CDT): Is s/p surgical intervention although still with ongoing pain. Follows with pain management who has does interventional injections with some benefit. On lyrica which helps some. Cont lyrica 150 mg bid. Cont pain management follow up. Rheumatoid arthritis involvi ng multiple sites with positive rheumatoid factor 07/28/2016 Overview (04/01/2019): Has strongly positive RF and anti-ccp abs. Xray bilat hands (01/2015) revealed multiple erosions. Symptoms mainly in bilat hands and wrists. Pt does feel better since starting MTX. Otherwise on SSZ and HCQ. Triple therapy with MTX, folic acid 1 mg daily, SSZ 1000 mg bid, HCQ 200 mg bid. Pt reluctant to start biologics. US left hand reveals moderate inflammatory changes with power doppler (04/21/16). US left hand/wrist (06/01/17): Moderate synovitis with effusions, synovial thickening and power doppler. Findings greatest in the long view of the wrist and radial/scaphoid joint with grade 2 effusions and grade 2 power doppler. Grade 1 effusions seen in the volar 4th MCP joint and 3rd PIP joint. Synovial thickening seen throughout the wrist, MCP and PIP joints. In comparision to previous left hand/wrist ultrasound, there has been little change in the inflammatory process. US left hand/wrist (04/01/19):Moderate effusions and power doppler on examination which will have to be correlated clinically. Marked synovial thickening in the wrist. Moderate synovial thickening in the 3rd PIP joint. Grade 2 effusion and grade 1 power doppler in the wrist. Grade 1 effusion and grade 2 power doppler in the radial/scaphoid joint. Grade 2 effusion in the 3rd PIP joint. Grade 1 effusion in the ulnar styloid, 5th MCP, volar 4th MCP, and 2nd PIP joints. A mildly enlarged median nerve is identified. Vectra 30 (04/14/16). Vectra 42 (05/14/17) Assessment & Plan (07/09/2024 10:12 AM CDT): CDAI 19. Overall, joint symptoms have remained fairly stable since last visit with persistent chronic discomfort in the hands, knees, feet, lower back. Has persistent active swelling tenderness across numerous joints, as above. Remains in moderate disease activity per CDAI. He continues to defer escalating treatment due to his concerns for immunosuppression given previous prostatitis with 1st Simponi Aria infusion. Previously discussed Orencia has a potential option for him given rheumatoid factor/CCP positivity and lower infection risks with Orencia. He has previously deferred. Did not increase methotrexate dose at last visit, as was discussed. He is now willing to increase methotrexate to 20 mg p.o. weekly with FA 1 mg daily. Otherwise, will continue hydroxychloroquine 200 mg b.i.d. and sulfasalazine 1000 mg b.i.d.. Routine labs today. Continue routine eye exams. Follow-up 3 months. Sooner if needed. Assessment & Plan (03/31/2024 10:27 AM PARAPROFESSIONAL AIDE): CDAI 12. Alvarado does continue note chronic discomfort and stiffness throughout the joints of the hands, which is stable and unchanged from last visit. Remains in moderate disease activity per CDAI. Continues to defer escalating treatment due to his concerns for immunosuppression given previous prostatitis with 1st Simponi Aria infusion. Have discussed Orencia has a potential option for him given rheumatoid factor/CCP positivity and lower infection wrists with Orencia. He does continue to defer this. He is prescribed methotrexate 20 mg p.o. weekly, although has only been taking 15 mg p.o. weekly. Was willing to increase this to the prescribed dose of 20 mg p.o. weekly with FA 1 mg daily. Otherwise, will continue hydroxychloroquine 200 mg b.i.d., and sulfasalazine 1000 mg b.i.d.. Routine labs today. Continue routine eye exams. Follow-up 3 months. Sooner if needed. Assessment & Plan (12/28/2023 10:15 AM PARAPROFESSIONAL AIDE): CDAI 14. Alvarado does continue to have some chronic residual discomfort and stiffness in the bilateral hands with active synovitis on exam. He remains in moderate disease activity per CDAI. He continues to defer escalating treatment due to his concerns for immunosuppression given previous prostatitis with 1st Simponi Aria infusion. Have discussed Orencia is a potential option for him given rheumatoid factor/CCP positivity and lower infection risks with Orencia. He continues to defer. At present, will continue methotrexate 20 mg p.o. weekly with FA 1 mg daily, hydroxychloroquine 200 mg b.i.d., and sulfasalazine 1000 mg b.i.d.. Routine labs today. Continue routine eye exams. Follow-up 3 months. Sooner if needed. Assessment & Plan (09/27/2023 9:35 PM CDT): CDAI 16. 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 He continues to defer escalating treatment due to concern for immunosuppression given previous prostatitis with 1st Simponi Aria infusion. Did discuss Orencia as a potential option for him again today given RF/CCP positivity and infection concerns. He continues to defer at this time, although is willing to reconsider with worsened symptoms. Given handout discussing medication further. Otherwise, will continue methotrexate 20 mg p.o. weekly with FA 1 mg daily, hydroxychloroquine 200 mg b.I.d., and sulfasalazine 1000 mg b.I.d.. Routine labs today. Follow-up 3 months. Sooner if needed. Assessment & Plan (06/21/2023 10:46 AM CDT): Moderate cdai of 15 which is stable from prior. While he continues to note joint pain/stiffness and has acute synovitis on exam, he is not interested in escalating his treatment regimen at present. His primary concern stems from his admission for prostatitis following his first Simponi aria infusion; discussed that he may be a good candidate for Orencia in light of his dual positivity and his infection concerns. At present, will continue methotrexate 20 mg po weekly with FA 1 mg daily, hydroxychlorquine 200 mg bid, and sulfasalazine 1000 mg bid. Routine labs today. Follow-up 3 months or sooner as needed. Assessment & Plan (03/23/2023 8:59 AM PARAPROFESSIONAL AIDE): CDAI 15. Alvarado remains a moderate disease activity per CDAI. He continues to describe discomfort in the hands and feet with a.m. stiffness for 30 minutes. Has active synovitis on exam. Does not appear adequately managed. We have continued to discuss additional treatment options and he has continued to defer biologic/TS DMARD medications due to infection history. At present, will maintain on methotrexate 20 mg p.o. weekly with FA 1 mg daily. Continue Plaquenil 200 mg b.i.d. and sulfasalazine 1000 mg b.i.d.. Routine labs today. Follow-up 3 months. Sooner needed. Continue routine eye exams. Assessment & Plan (12/12/2022 9:05 AM PARAPROFESSIONAL AIDE): CDAI 11. Alvarado remains a moderate disease activity per CDAI. He continues to describe intermittent discomfort in the hands and feet with a.m. stiffness for 60 minutes. Has active synovitis on exam. Does not appear adequately managed. We did again discussed additional treatment options, which has continued to defer biologic/TS DMARD medications due to infection history. At present, will maintain on methotrexate 20 mg p.o. weekly with FA 1 mg daily. Continue Plaquenil 200 mg b.i.d. and sulfasalazine 1000 mg b.i.d.. Routine labs today. Follow-up 3 months. Sooner needed. Assessment & Plan (09/11/2022 9:25 AM CDT): CDAI 11. Alvarado continues to remain in moderate disease activity per CDAI. We have discussed additional treatment options, which he has deferred biologic/tsDMARD medications due to infection history. As has been discussed, do suspect difficulty achieving adequate disease control without these. Symptoms remained stable and mostly unchanged from last visit. At present, will maintain on methotrexate 20 mg p.o. weekly with FA 1 mg daily. Continue Plaquenil 200 mg b.i.d. and sulfasalazine 1000 mg b.i.d.. Routine labs today. Follow-up 3 months. Sooner if needed. Assessment & Plan (06/19/2022 8:57 AM CDT): CDAI 12. Alvarado continues to remain in moderate disease activity per CDAI. We did again discuss additional treatment options, which she continues to defer biologic/tsDMARD medications due to infection history. As has been discussed, do suspect difficulty achieving adequate disease control without these. Has seen Ophthalmology since last visit, which apparently had noted the potential of drug-induced and/or age-related retinal concerns. Ophthalmology apparently noted that it was okay to remain on medication and monitor, although note not available for review. Will track this down and at that point decide if we can continue Plaquenil or if we will need to discontinued. At present, will maintain on methotrexate 20 mg p.o. weekly with FA 1 mg daily. Continue Plaquenil 200 mg b.i.d. and sulfasalazine 1000 mg b.i.d.. Routine labs today. Follow-up 3 months. Sooner if needed. Assessment & Plan (03/20/2022 2:09 PM PARAPROFESSIONAL AIDE): Cdai 15. Overall, joints have remained stable from last visit. Continues to have chronic joint pain/stiffness in the hands/feet and lower back. Active synovitis on exam. Persistent moderate CDAI. Unfortunately, he continues to defer biologic/tsDMARD medications due to infection history. I do suspect you of difficulty achieving adequate disease control without these. Will maintain on methotrexate 20 mg p.o. weekly with FA 1 mg daily. Continue Plaquenil 200 mg b.i.d. and sulfasalazine 1000 mg b.i.d.. Routine labs today. Follow-up 3 months. Sooner if needed. Assessment & Plan (12/19/2021 9:00 AM PARAPROFESSIONAL AIDE): CDAI 16. Since last visit, has increase methotrexate to 20 mg weekly and tolerated this well. Denies a major change in symptoms with persistent joint discomfort in the hands/feet. With that said, his CDAI is improved from 27 since prior to beginning methotrexate Has active synovitis on exam today. Has persistent moderate CDAI. Unfortunately, he continues to defer biologic/tsDMARD medications due to infection history and I do suspect he will have difficulty achieving adequate disease control without these. At this, will maintain on methotrexate 20 mg weekly with FA 1 mg daily. Continue Plaquenil 200 mg b.i.d. and sulfasalazine 1000 mg b.i.d.. Routine labs today. Follow-up 3 months. Sooner if needed. Assessment & Plan (10/19/2021 3:01 PM CDT): CDAI 13. Since last visit, has begun methotrexate and titrated to 15 mg weekly tolerating this well. Denies major change in symptoms with persistent discomfort and stiffness in the bilateral hands. With that said, CDAI is certainly improved from 27 at last visit to 13 today. Does continue to possess active synovitis on exam, as above. Given moderate CDAI, discussed increasing methotrexate to 8 tablets weekly with FA 1 mg daily. Continue Plaquenil 200 mg b.i.d. and ssz 1000 bid. Routine labs today and recheck labs in 4 weeks. Follow-up 2 months. Sooner if needed. I do suspect that we will have difficulty achieving adequate disease control without biologic medications, which had been discussed. He continues to swelling of her these due to concerns for side effects. Saw ophthalmology after last visit, so will track down these records. The were apparent concerns for medication induced side effects, per his report Addendum 10/19/2021: Reviewed office visit note from Dr. Mery Lechuga, ophthalmology. No evidence suggest retinal toxicity for hydroxychloroquine medication per note. Assessment & Plan (08/18/2021 9:00 AM CDT): CDAI 27. Continues to have chronic pain, stiffness, swelling in the joints, which is most notable in the bilateral hands and left foot (1st toe- dropped a brick on this toe few months prior). Does have several swollen and tender joints, as above. Does not appear adequately controlled. He did trial increase in sulfasalazine after last visit with no major benefit, so subsequently reduced back to 1000 mg b.i.d.. Has remained off methotrexate due to prior infection/on antibiotics. Will resume methotrexate at this time beginning with 4 tablets weekly x2 weeks followed by 6 tablets weekly until next visit. Continue FA 1 mg daily. Continue Plaquenil 200 mg b.i.d.. Routine labs today. Follow-up 4 weeks. Sooner if needed. Unfortunately, I do suspect a difficulty achieving adequate disease control without biologic medications, which was discussed today. He continues to strongly defer these due to concerns for side effects. Assessment & Plan (05/12/2021 9:00 AM CDT): CDAI 17. After last visit, we did discuss increasing sulfasalazine to 1500 mg b.i.d., which she admits that he did not proceed with due to concerns for polypharmacy. Continues to have persistent joint complaints in the bilateral hands, which he rates at a 5/10. Synovitis does certainly persist on exam. He continues to defer immunosuppressive medications, including biologics. He is willing to increase sulfasalazine at this point. Will increase sulfasalazine to 1500 mg b.i.d. and recheck labs in 1 month. Otherwise, will continue Plaquenil 200 mg b.i.d.. Routine labs today. Follow-up 3 months. Sooner if needed. Assessment & Plan (02/08/2021 10:45 AM PARAPROFESSIONAL AIDE): CDAI 23. Continues to have persistent joint complaints with active synovitis on exam. Does feel that symptoms are stable on current treatment regimen and continues to defer immunosuppressive medications. Given active synovitis, discussed increase sulfasalazine to 1500 mg b.i.d., which was amenable to. Will increase this time. Otherwise, will continue Plaquenil 200 mg b.i.d.. Routine labs today and recheck labs in 4 weeks. Follow-up 3 months. Sooner if needed. Assessment & Plan (11/10/2020 10:13 AM CDT): CDAI 17. Alvarado has remained off Simponi Aria infusions and methotrexate since last visit after developing prostatitis. He does remain on sulfasalazine 1000 mg b.i.d.. He notes that he never did increase to 1500 mg b.i.d., which had been previously discussed. Overall, joints have remained stable since last visit without any worsened symptoms. Continues to have some discomfort in the peripheral joints, which is manageable. Swelling does persist across several joints of the bilateral hands on exam. At this time, will restart hydroxychloroquine 200 mg b.i.d.. Risks of retinal toxicity were discussed with the patient. They are aware that they should get at least yearly eye exams, unless otherwise specified. Continue sulfasalazine 1000 mg b.i.d.. Routine labs today. Follow-up 2-3 months. Sooner if needed. If symptoms do persist at next visit, could consider increase on sulfasalazine. Avoiding immunosuppressive medications this time with his recent infection history. Assessment & Plan (10/13/2020 2:13 PM CDT): CDAI 18. After last visit, Alvarado did receive his 1st Simponi Aria infusion and subsequently developed prostatitis, which was hospitalized for 3 days. He does remain on antibiotics visit is currently holding hydroxychloroquine and methotrexate medications for this reason. He does remain on sulfasalazine. Continues to note significant joint complaints, which are most notable in the hands. Denies a major change in symptoms from last visit. Synovitis does persist on exam. Not adequately controlled, although unfortunately we will need to remain off medications at this time until off antibiotics and symptoms have fully resolved. Okay to continue sulfasalazine 1500 mg b.i.d. at present. Follow-up 4 weeks. Sooner if needed. Seen with Dr. Lubin. Assessment & Plan (08/10/2020 10:25 AM CDT): CDAI 19. He has continued to note increased joint pain, stiffness in the bilateral hands with persistent reduction in forest fire warden strength. Synovitis does persist on exam. Does not appear adequately controlled. Given his persistent synovitis, we again discussed additional treatment with Simponi Aria infusions. He would like to consider this at this time and would like us to look into approval. Patient advised of the side effects of the medication, including but not limited to increase risk of infection, rash, infusion site reaction. Will also increase sulfasalazine to 1500 mg b.i.d.. Continue methotrexate 20 mg weekly, FA 1 mg daily, Plaquenil 200 mg b.i.d.. Routine labs today. Follow-up 3 months. Sooner if needed. Continue routine eye exams. Seen with Dr. Lubin. Assessment & Plan (05/11/2020 9:12 AM CDT): CDAI 18. Since last visit, patient has noted some persistent joint pain/stiffness in the bilateral hands. Does possess synovitis on exam. Not quite adequately controlled. Given his persistent synovitis, due again discussed additional treatment with Simponi Aria infusions, which has been discussed past several visits. Patient continues to defer due to side effect concerns. Could reconsider if symptoms worsen. At present, will continue methotrexate 20 mg weekly, Plaquenil 200 mg b.i.d., sulfasalazine 1000 mg b.i.d.. Routine labs today. Follow-up 3 months. Sooner if needed. Continue routine eye exams. Assessment & Plan (02/13/2020 10:35 AM PARAPROFESSIONAL AIDE): CDAI 10. Overall, notes that joints remained fairly stable since last visit. Does continue to note some generalized stiffness the morning for 15-30 minutes with some reduced forest fire warden strength, discomfort in the hands. Does continue possess synovitis in the right hand primarily on exam. Given his persistent synovitis, have discussed additional treatment with simponi aria infusions at past several visits. Patient continues to defer at this time due to side effect concerns and feels that he is doing well enough on current treatment regimen. Could reconsider if symptoms worsen. Will continue methotrexate 20 mg weekly, Plaquenil 200 mg b.i.d., sulfasalazine 1000 mg b.i.d.. Prior labs reviewed with patient. Routine labs today. Follow-up 3 months. Sooner if needed. Continue routine eye exams. Assessment & Plan (11/03/2019 9:26 AM CDT): CDAI 15. Patient states that joint symptoms have remained stable since last visit. Does continue notes some joint discomfort along with generalized stiffness in the morning. Reduced forest fire warden strength. Synovitis does persist on exam. Given persistent synovitis, again discussed additional treatment with Simponi Aria infusions. Patient continues to defer this time due to concerns for side effects. Would like to reconsider if symptoms worsen. Discussed with patient long-term risks of uncontrolled inflammation. Will continue methotrexate 20 mg weekly, Plaquenil 200 mg b.i.d., sulfasalazine 1000 mg b.i.d.. Routine labs today. Follow-up 3 months. Sooner if needed. Continue routine eye exams. Assessment & Plan (09/22/2019 12:31 PM CDT): CDAI 14. Continues to note persistent joint complaints in the bilateral hands with persistent active synovitis. Has remained off methotrexate for the past several weeks due to ileocolic resection surgery. Has resumed methotrexate 20 mg weekly x2 weeks without any side effects. Not quite adequately controlled. 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 Will continue methotrexate 20 mg weekly, Plaquenil 200 mg b.i.d., sulfasalazine 1000 mg b.i.d.. Routine labs today. Obtain recent CBC from PCP. Follow-up 4 weeks. Sooner if needed. Continue routine eye exams. Seen with Dr. Nazario. Reconsider simponi aria at next visit. Assessment & Plan (07/11/2019 11:00 AM CDT): CDAI 23. Patient is doing poorly at this time with increased pain, stiffness, swelling in the bilateral hands/wrists and lesser degree feet. A.m. stiffness for 30 minutes. Synovitis is present on exam. Would like to proceed with Simponi Aria infusions, which has been discussed in the past several visits. With that said, patient is scheduled for ileocolic resection surgery in the next 2 weeks, so will need to wait until 2 weeks after surgery ensuring incisions are healing well without any signs of infection. Will hold methotrexate 2 weeks prior/post surgery ensuring healing well, as well. Will maintain on Plaquenil 200 mg b.i.d., sulfasalazine 1000 mg b.i.d., although was advised to hold 2-3 days prior to surgery due to increased bleeding. Routine labs today. Follow-up 6 weeks. Sooner if needed. Continue routine eye exams. Assessment & Plan (06/25/2019 10:32 AM CDT): CDAI 15. After last visit, patient was hospitalized due to significant anemia, which he did require transfusion. Had discussed addition of simponi aria infusions at last visit, the patient did not proceed given the COVID pandemic concerns. Will hold infusions at this time, as patient had recent colonoscopy displaying three strictures and has anticipations for a possible surgery. Does continue to have some persistent joint complaints in the hands with synovitis on exam. Not quite adequately controlled, so will likely need to proceed with infusions in the future. Will maintain on methotrexate 20 mg weekly, FA 1 mg daily, Plaquenil 200 mg b.i.d., sulfasalazine 1000 mg b.i.d.. Routine labs today. Follow-up 4 weeks. Sooner if needed. Continue routine eye exams. Dr. Nazario patient, although was seen with Dr. Lubin, as was out of the office today. Assessment & Plan (04/15/2019 11:03 AM CDT): CDAI 12. Since last visit, patient has noted worsening of his generalized stiffness, which does include the hands along with increased swelling in the hands. Synovitis does persist on exam. Recent repeat left hand ultrasound, as above, did display persistent moderate effusions, which was unchanged from prior. Patient did not reduce sulfasalazine, as had been mentioned at last visit. Does not appear adequately controlled at this time. For this reason, re-discussed use of Simponi Aria infusion, which patient would like to proceed with this at this time. Patient advised of the side effects of the medication, including but not limited to increase risk of infection, rash, infusion site reaction. Given handout discussing medication. Will continue methotrexate 20 mg weekly, FA 1 mg q.d., Plaquenil 200 mg b.i.d., sulfasalazine 1000 mg b.i.d.. Routine labs today. Follow-up 6 weeks. Sooner if needed. Continue routine eye exams. Assessment & Plan (01/14/2019 10:30 AM PARAPROFESSIONAL AIDE): CDAI 6. Continues to note swelling and stiffness across few joints of the bilateral hands, but denies significant pain. Swelling across few joints of bilateral hands. Overall, does appear fairly well controlled at this time on current treatment regimen. Would like to further evaluate with repeat right hand ultrasound prior to next visit to assess inflammation. Of note, patient has only been taking sulfasalazine 1000 mg b.i.d.. Has noted some slight nausea symptoms, which she is unsure on the cause for this. Suspect that this may be related to the sulfasalazine. Will have him reduce sulfasalazine to 1 tablet twice daily to see if this improves. If no improvement in 7 days, will stop medication. If persists, at that point, will resume the medication, as less likely the cause. Will continue methotrexate 20 mg weekly, FA 1 mg q.d., Plaquenil 200 mg b.i.d.. Routine labs today. Follow-up 3 months. Sooner if needed. Continue routine eye exams. Depending on ultrasound findings, could reconsider simponi aria infusions, which had been discussed in the past. Assessment & Plan (10/15/2018 12:11 PM CDT): Moderate CDAI 14. Patient does continue to note some joint pain and stiffness, primarily involving the hands. Does possess some synovitis with tenderness across several joints of the bilateral hands. Given his synovitis along with erosions seen on prior x-ray, do continue believe that patient would benefit most from a biologic medication, which was again discussed with patient today. Patient will be beginning Medicare in the next year, so discuss simponi aria infusion with patient today. Patient would like to consider this further and will contact our office if he would like to begin this. Discussed potential side effects of the medication. At this time, will continue methotrexate 20 mg weekly, FA 1 mg q.d., Plaquenil 200 mg b.i.d., as well as sulfasalazine 1500 mg b.i.d.. Routine labs today. Follow-up 3 months. Sooner if needed. Continue routine eye exams. Assessment & Plan (07/16/2018 9:50 AM CDT): Moderate CDAI 19. Patient continues to note generalized joint complaints, which are most prominent in the bilateral hands and feet. Does possess synovitis with tenderness across several joints of bilateral hands. Given this synovitis and erosions seen on prior x-ray, to continue with the patient would benefit most from a biologic medication. With that said, patient continues to defer this treatment option. Patient would like to continue with current treatment regimen. For this reason, will continue methotrexate 20 mg weekly, FA 1 mg q.d., Plaquenil 200 mg b.i.d., sulfasalazine 1500 mg b.i.d.. Routine labs today. Follow-up 3 months. Sooner if needed. Continue routine eye exams. Assessment & Plan (04/02/2018 11:33 AM PARAPROFESSIONAL AIDE): Moderate CDAI. Patient continues to note generalized joint achiness in pain, which are most prominent the bilateral hands, as well as bilateral 1st MTP joints. Continues possess synovitis across several joints. Given the synovitis and erosions seen on prior x-ray, continue to believe that patient would benefit most from a biologic medication, which was again discussed with patient today. Given that patient will be Medicare in the next year, do believe that simponi aria infusion medication would be most appropriate. Patient continues to defer although would like to reconsider once he begins medicare. Of note, as below, patient has been holding methotrexate for 1 week due to chills symptoms, which have not returned to this point. Less suspicious that medications are the cause for his chills, although will continue to hold to see if symptoms remain resolved. Will have patient call back in 2 weeks to advise if symptoms have returned. If no return in symptoms, will consider switching mtx to arava. Continue hcq 200 mg BID, ssz 1500 mg BID. Routine labs today. Fu 3 months. Sooner if needed. Continue routine eye exams. Discussed with Dr. Nazario. Assessment & Plan (03/04/2018 9:12 AM PARAPROFESSIONAL AIDE): Moderate CDAI. Patient has noted increased pain and stiffness, involving the MCP and PIP joints with synovitis seen across several joints of the bilateral hands. Given that patient had Denise seen on prior x-ray, as well as persistent synovitis on triple therapy regimen, do believe that he would benefit from a biologic medication, which was discussed again with patient today. With that said, patient would like to continue to defer these medication choices at this time. For this reason, will continue methotrexate 20 mg weekly, FA 1 mg q.d., Plaquenil 200 mg b.i.d.. Will increase sulfasalazine to 1500 mg b.i.d.. Routine labs today. Follow-up 4 weeks. Sooner if needed. Continue routine eye exams. Seen with Dr. Nazario. Of note, patient's biggest complaints today are bilateral 1st MTP joint pain (L>R) , as well as left CMC joint pain , which is more likely due to osteoarthritis, as discussed below. Assessment & Plan (2018 11:11 AM PARAPROFESSIONAL AIDE): Moderate CDAI. Continues to have pain and stiffness across several joints, including the hands and feet. Swelling and tenderness is present across several joints on exam today. Patient has been off mtx for the past several weeks due to lower back fusion surgery, which was completed 11/28/2017. Incisions are healing well at this time, so will restart mtx 12.5 mg weekly for two weeks and then increase back to stable dose of MTX 20 mg weekly, fa 1 mg QD. Continue HCQ 200 mg BID, as well as SSZ 1000 mg BID. Given patient's disease activity, as well as prior erosions seen on XR, do believe that patient would require a biologic medication, although defers this treatment. For this reason, will maintain treatment plan, as above. Fu 2 months. Sooner if needed. Routine labs today. Continue routine eye exams. Assessment & Plan (09/10/2017 9:41 AM CDT): He still has is having pain and stiffness throughout the hands and wrists with the left greater than the right. He does have mild synovitis over several joints. I did discuss with him the addition of biologic treatment although he is hesitant to pursue this although may be reconsider this next visit after his upcoming spinal surgery. Continue triple therapy with methotrexate 12.5 mg p.o. weekly, hydroxychloroquine 200 mg b.i.d., and sulfasalazine 1000 mg b.i.d.. It is noted his methotrexate was recently decreased from 20 mg to 12.5 mg weekly 2 weeks ago due to chills he has been experiencing which may or may not be related to medication. Will obtain labs as below. Follow-up in 3 months. Assessment & Plan (06/11/2017 1:49 PM CDT): Still with pain and stiffness in hands, wrists. MTX recently increased to 20 mg weekly last month with no great benefit as of yet. Will give this more time to take effect. Cont MTX 20 mg PO weekly, folic acid 1 mg daily, HCQ 200 mg bid, SSZ 1000 mg bid. Pt would likely benefit from biologics although he is hesitant to pursue this at this time. Labs as below. Is noted pt to have left TKA in August and will need to hold MTX 2 weeks before and 2 weeks after surgery. f/u 3 months. Assessment & Plan (05/14/2017 9:23 AM CDT): Moderate CDAI. Appears worsened since last visit. Swelling in the MCP and PIP joints of the hands. Will increase MTX to 20 mg PO weekly, folic acid 1 mg daily, HCQ 200 mg bid, SSZ 1000 mg bid. Will prescribe pennsaid topical cream. Repeat ultrasound today. Continue routine eye exams. Repeat labs today. Fu 3 months. Assessment & Plan (02/12/2017 9:02 AM PARAPROFESSIONAL AIDE): Remains stable on current regimen. Has occasional pain in mcp, pip joints although nothing severe. No synovitis on exam today. I discussed increasing MTX dose although pt does not feel is warrented. Will cont MTX 12.5 mg PO weekly, folic acid 1 mg daily, HCQ 200 mg bid, SSZ 1000 mg bid. Cont routine eye exams on HCQ. Labs as below. F/u 3 months. Assessment & Plan (01/04/2017 9:56 AM PARAPROFESSIONAL AIDE): Still with some stiffness in hands and wrists although overal he feels he is doing well enough. Does have some pain and swelling in left knee although he attributes this to a previous injury with ?torn ligament and has been told by ortho he needs a TKA. Other than left knee has no current joint complaints and no other synovitis. Shahriar lcont MTX 12.5 mg PO weekly, folic acid 1 mg daily, SSZ 1000 mg bid, HCQ 200 mg bid. F/u at scheduled appt in Feb. Assessment & Plan (10/30/2016 9:07 AM CDT): CDAI 10: Low disease activity Appears stable clinically. Still with some stiffness in hands, wrists although no sig pain. Pt feels he is doing well enough on triple therapy with mtx, hcq, ssz. Pt reluctant to start biologics. Will cont MTX 12.5 mg PO wekly, folic acid 1 mg daily, HCQ 200 mg bid, SSZ 1000 mg bid. I discussed with pt increasing MTX or SSZ and he does not feel is necessary. Will obtain labs as below. Will likely recheck Vectra next visit. F/u 3 months. Assessment & Plan (07/28/2016 6:16 PM CDT): CDAI 6: Low disease activity Overall he feels that he is doing well. He does have occasional flare-ups of pain and stiffness in the bilateral hands although nothing severe. His exam findings do not reveal any obvious synovitis. He does state that methotrexate does cause some mild diarrhea the day he takes it and the day after although not bad enough to stop this. Will continue his current regimen of triple therapy with methotrexate 12.5 mg p.o. Weekly hydroxychloroquine 200 mg b.i.d. And sulfasalazine 1000 mg b.i.d.. I did discuss discussed with him increasing sulfasalazine although he does not feel it is warranted. I also discussed with him starting biologic medications and he still is wanting to hold off on this if possible as he is reluctant to start biologics. He was given order for standing labs to retained approximately every 8 weeks. Follow-up in 3 months. Primary osteoarthritis involving multiple joints 07/28/2016 Overview (06/11/2017): This mainly involves his low back. Had trigger point injections last week with mild benefit. Cont pain management follow up. Cont diclofenac 75 mg bid. S/p R partial knee replacement Scheduled for L TKR august 2017 Assessment & Plan (05/11/2020 9:13 AM CDT): He notes some persistent discomfort in the left CMC joint. Had previously discussed PT for CMC bracing, which he had deferred. No benefit with Pennsaid. Patient requests a Kenalog injection. Will order ultrasound-guided Kenalog intra-articular cmc injection. Discussed risks and benefits of the injection. Assessment & Plan (07/16/2018 9:51 AM CDT): Mild pain persistent bilateral 1st MTP joints. Did have some improvement with prior ultrasound-guided steroid injection. Left CMC joint painful at times. Discussed possible PT for bracing, the patient defers. No benefit with Pennsaid. Left TKA 1 month prior. Assessment & Plan (04/02/2018 11:35 AM PARAPROFESSIONAL AIDE): Continues to have some amandeep 1st mtp joint pain (L>R). 50% improvement in L 1st mtp joint with US guided steroid injection after last visit. L CMC joint painful at times as well. Rediscussed PT for bracing, although patient again defers. No benefit with Pennsaid. In need of L TKA. Will be considering in the near future. Assessment & Plan (03/04/2018 9:14 AM PARAPROFESSIONAL AIDE): Major complaint today is bilateral 1st MTP joint pain (L>R), which does worsened with activity. Also noting left CMC joint pain. Concern these are more likely due to osteoarthritis, which was discussed with patient today. No benefit with Pennsaid samples in the past. Will obtain bilateral feet x-ray, as well as order ultrasound-guided left 1st MTP joint steroid injection. Discussed PT for L cmc joint pain, but patient defers at this time. Could consider CMC injection if symptoms progress. Of note, patient is also in need of a left TKA, which will be considering in the near future. S/p R partial replacement. Assessment & Plan (2018 11:12 AM PARAPROFESSIONAL AIDE): Patient is in need of a left TKA, which will be meeting with surgeon this week to discuss scheduling this. S/p right partial replacement. Assessment & Plan (09/10/2017 9:43 AM CDT): He is status post right partial knee replacement which is doing fairly well. He does need a left total knee replacement per his report although this is being deferred due to his upcoming spinal surgery. Assessment & Plan (06/11/2017 1:51 PM CDT): s/p right partial knee replacement which is holding up well. His left knee is giving him the majority of his pain complaints and he is to have left TKA in August. Is using pennsaid 2% topical bid with minimal benefit. Assessment & Plan (05/14/2017 9:22 AM CDT): Many of patient's joint complaints appear to be osteoarthritic in nature. Increased pain in the left knee. Planning to reschedule knee replacement for this August. Continues to have low back pain with two prior lumbar fusion surgeries. Has seen orthopedic surgeon for this issue and was advised of the need for another surgery, but he declined at this time. Advised to continue to follow with ortho for this issue. Assessment & Plan (02/12/2017 9:03 AM PARAPROFESSIONAL AIDE): Has increased pain in left knee and is scheduled to have L TKR in april. Pt to hold MTX 2 weeks before and 2 weeks after surgery. Assessment & Plan (01/04/2017 10:00 AM PARAPROFESSIONAL AIDE): Symptoms worse in knees L>R. Pt reports being told he needs a L TKA. Pain does respond to corticosteroid injections. Pt has an appt with ortho next week for further evaluation. Assessment & Plan (10/30/2016 9:08 AM CDT): Involves bilat knees, L>R. Has been told needs L TKR although pt trying to hold off. Is s/p R PKR. On diclofenac which helps. Follows with ortho and receives corticosteroid injections into L knee with benefit. Assessment & Plan (07/28/2016 6:18 PM CDT): This mainly involves his low back. Had trigger point injections last week with mild benefit. Cont pain management follow up. Cont diclofenac 75 mg bid. Gout 01/11/2015 Overview (05/11/2016): Gout Malignant neoplasm of skin 01/11/2015 Overview (05/12/2016): Skin cancer Spinal stenosis 07/09/2014 Tendinitis 01/31/2013 Disorder of hand 01/31/2013 Arthralgia of wrist 10/22/2012 Current Treatment and Therapy Plans No current plan information found. Past Treatment and Therapy Plans No past plan information found. Lifetime Dose Tracking * Chemical Lifetime Dose Automatic Entry Manual Entr y Fluoro Time 20.622 minutes 20.622 minutes 0 minutes Air kerma at the reference point (Ka,r) 184.01 mGy 1 84.01 mGy 0 mGy DLP 6,918 mGycm 6,918 mGycm 0 mGycm Resolved Problems Problem Noted Date Diagnosed Date Resolved Date Thoracic spondylosis 06/27/2021 022
--- OUTSIDE RECORDS SUMMARY | 2024-09-22 17:21 | XMS_ITS | Clinical Summary ---
Author Organization [facility] Address [address] [place] [address] Care Team Providers Care Manpower Development Specialist Name Role Phone Unavailable Primary Care Provider Unavailabl e Allergies No known active allergies Medications gemfibrozil (LOPID) 600 MG tablet Take 1 tablet (600 mg total) by mouth 2 (two) times daily before meals. Active tamsulosin (FLOMAX) 0.4 MG Cap Take 1 capsule (0.4 mg total) by mouth daily. Active ezetimibe (ZETIA) 10 MG tablet Take 1 tablet (10 mg total) by mouth daily. Active levothyroxine (SYNTHROID) 75 MCG tablet Take 1 tablet (75 mcg total) by mouth every morning. Active sulfaSALAzine (AZULFIDINE) 500 MG tablet Take 2 tablets (1,000 mg total) by mouth 2 (two) times daily. Active omeprazole (PRILOSEC) 20 MG capsule Take by mouth daily. Active methotrexate (TREXALL) 2.5 MG tablet Take 8 tablets (20 mg total) by mouth once a week. Active folic acid (FOLVITE) 1 MG tablet Take 1 tablet (1 mg total) by mouth daily. Active hydroxychloroqui ne (PLAQUENIL) 200 MG tablet Take by mouth 2 (two) times daily. Active traZODone (DESYREL) 150 MG tablet Take 1 tablet (150 mg total) by mouth nightly at bedtime. Active gabapentin (NEURONTIN) 600 MG tablet Take 1 tablet (600 mg total) by mouth 3 (three) times daily. Active amitriptyline (ELAVIL) 25 MG tablet Take 1 tablet (25 mg total) by mouth nightly at bedtime. Active docusate sodium (COLACE) 250 MG capsule Take 1 capsule (250 mg total) by mouth daily. Active acetaminophen (TYLENOL) [address] 1 suppository (650 mg total) rectally every 4 (four) hours as needed for Fever. Active multivitamin with minerals liquid Take 15 mLs by mouth daily. Active ferrous gluconate (FERGON) 324 (38 FE) MG tablet Take 1 tablet (324 mg total) by mouth daily. Active finasteride (PROSCAR) 5 MG tablet Take 1 tablet (5 mg total) by mouth daily. Active tiZANidine (ZANAFLEX) 4 MG tablet Take 1 tablet (4 mg total) by mouth 2 (two) times a day. Active HYDROcodone-acet aminophen (NORCO) 5-325 MG tablet Take 1 tablet by mouth every 6 (six) hours as needed for Pain. Active Social History Tobacco Use Types Packs/Day Years Used Date Smoking Tobacco: Never Smokeless Tobacco: Never Tobacco Cessation:Counseling Given: Not Answered Alcohol Use Standard Drinks/Week Comments Not Currently 0 (1 standard drink = 0.6 oz pur e alcohol) socially Sex and Gender Information Value Date Recorded Sex Assigned at Male 09/22/2024 1:48 PM CDT Legal Sex Male 11:13 AM CDT Gender Identity Male 09/22/2024 1:48 PM CDT Sexual Orientation Not on file Last Filed Vital Signs Vital Sign Reading Time Taken Comments Blood Pressure - - Pulse - - Temperature - - Respiratory Rate - - Oxygen Saturation - - Inhaled Oxygen Concentration - - Weight 90.7 kg (200 lb) 09/22/2024 11:52 AM CDT Height 177.8 cm (5' 10) 09/22/2024 11:52 AM CDT Body Mass Index 28.7 09/22/2024 11:52 AM CDT Plan of Treatment Upcoming Encounters Date Type Department Care Team (Latest Contact Info) Description 09/29/2024 8:24 AM CDT Hospital Encounter [facility] [address] [place] [address] Miah Gallego MD [address] [facility] [address] [id number] 09/29/2024 8:24 AM CDT - 09/29/2024 8:58 AM CDT Surgery [facility] [address] [place] [address] Miah Gallego MD [address] [facility] [address] [id number] CATARACT REMOVAL WITH IOL IMPLANT Scheduled Procedures Name Priority Associated Diagnoses Date/Ti me CATARACT REMOVAL WITH IOL IMPLANT H25.11 09/29/2024 8:24 AM CDT Health Maintenance Due Date Last Done Comments Colorectal Cancer Screening Colonoscopy (10 Years) 1955 Hepatitis C 01/04/1972 DTaP, Tdap and Td Vaccines ( 1 - Tdap) 1973 Pneumococcal Vaccine: 50+ Ye ars (1 of 1 - PCV) 01/04/2004 Zoster Vaccines (1 of 2) 01/04/2004 Annual Medicare Wellness Visit 2019 COVID-19 Vaccine ( - 2023-2 5 season) 2023 RSV Immunization or 60+ Years (1 - 1-dose 75+ series) 2029 Meningococcal B Vaccine Aged Out No l onger eligible based on patient's age to complete this topic Meningococcal Vaccine Aged Out No sarah louisa eligible based on patient's age to complete this topic RSV Immunizations Under 20 Months Aged Out No longer eligible based on patient's age to complete this topic Goals Goal Patient Goal Type Associated Problems Recent Progress Patient-Stated? Author Autogenerat ed Goal Care Plan Autogenerated Problem No Camilla Nazario RN Additional Health Concerns Active Problems Noted Date Diagnosed Date Autogenerated Problem 09/17/2024 Insurance [employer]
--- OUTSIDE RECORDS SUMMARY | 2024-09-22 17:21 | XMS_ITS | Clinical Summary ---
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 Gender Identity Not on file Sexual Orientation Not on file Plan of Treatment Health Maintenance Due Date Last Done Comments Hepatitis C Virus (HCV) Screening 1955 TdaP Immunization 1955 Cologuard 1999 Colonoscopy 1999 Colorectal Cancer Screening 1999 Immunochemical Fecal Occult Blood 1999 Pneumococcal Immunization (5 0+ years) (1 of 1 - PCV) 01/04/2004 Zoster Immunization (1 of 2) 01/04/2004 SARS-COV-2 Immunization (1 - season) 2023 Influenza Immunization (#1) 2024 Respiratory Syncytial Virus (RSV) Immunization (Adult) (1 - 1-dose 75+ series) 2029 Hepatitis B Immunization Aged Out No longer eligible based on patient's age to complete this topic Human Papillomavirus (HPV) Immunization Aged Out No longer eligible b ased on patient's age to complete this topic Meningococcal Immunization (ACWY) Aged Out No longer eligible based on patient's age to complete this topic Rotavirus Immunization Aged Out No lo nger eligible based on patient's age to complete this topic
--- OUTSIDE RECORDS SUMMARY | 2024-09-22 17:21 | XMS_ITS | Encounter Summary ---
Author Organization [facility] Address [address] [place] [address] Care Team Providers Care Clinical Resource Coordinator Name Role Phone Kale Rose DO Primary Care Provider Encounter Details Date Type Department Care Team (Late st Contact Info) Description 08/10/2022 Lab Requisition [facility] [address] [place] [id number] Akanksha Sandoval PA-C [address] [place] [address] Neoplasm of uncertain behavior of skin Social History Tobacco Use Types Packs/Day Years Used Date Smoking Tobacco: Never Assessed Sex and Gender Information Value Date Recorded Sex Assigned at Not on file 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 Gender Identity Not on file Sexual Orientation Not on file documented as of this encounter Plan of Treatment Not on file documented as of this encounter Procedures Procedure Name Priority Date/Time Associated Diagnosis Comments DERMATOPATHOLOGY Routine 08/10/2022 12:0 0 AM CDT Neoplasm of uncertain behavior of skin [ICD-10-CM] documented in this encounter Results * DERMATOPATHOLOGY (08/10/2022 12:00 AM CDT) Case Report Dermatopathology Report Case: [id number] Authorizing Provider: Akanksha Sandoval PA-C Collected: 08/10/2022 12:00 AM Ordering Location: [facility] Received: 08/11/2022 01:36 PM Pathologist: Lisa Odell MD Specimen: Skin, left posterior neck 11:24 AM CDT DERMATOPATHOLOGY LABORATORY Final Diagnosis Specimen A. SKIN, left posterior neck: BASAL CELL CARCINOMA, NODULAR TYPE (C44.41) 11:24 AM CDT DERMATOPATHOLOGY LABORATORY at 1124 CDT Clinical History Superficial Basal Cell Carcinoma 11:24 AM CDT DERMATOPATHOLOGY LABORATORY Gross Description Specimen A: Received is one formalin filled container labeled with the patient's name and designated left posterior neck. The specimen consists of a shave biopsy measuring 6x5x1 mm. Jar 0. 11:24 AM CDT DERMATOPATHOLOGY LABORATORY Microscopic Description Specimen A. SKIN, left posterior neck: Within the dermis there are aggregates of basaloid cells with a high nuclear to cytoplasmic ratio and peripheral palisading. 11:24 AM CDT DERMATOPATHOLOGY LABORATORY Disclaimer An external and internal positive and negative controls are appropriate for the histochemical, immunohistochemical and immunofluorescence stain(s) in this case (if any), except where stated explicitly. The performance characteristics of the stain(s) cited in this report were developed and its performance characteristic determined by the Dermatopathology Laboratory at [facility], directed by Dr. Vaughn Harley. These tests need not be, and therefore are not, approved by the [place] Food and Drug Administration. The tests are used for clinical purposes. Billing Codes Specimen Charges Stain Charges 62785 1 11:24 AM CDT DERMATOPATHOLOGY LABORATORY Embedded Images 11:24 AM CDT DERMATOPATHOLOGY LABORATORY Pathology/Cytolog y TISSUE SPECIMEN FROM SKIN / Unknown 08/10/2022 08/11/2022 1:36 PM CDT Akanksha Sandoval PA-C LAB - PATHOLOGY/CYTOLOGY MATTE TRACEY Final Result DERMATOPATHOLOGY LABORATORY [facility] - Department of Dermatology [address] [place], [place] [address] [place] [address] documented in this encounter Visit Diagnoses Diagnosis Neoplasm of uncertain behavior of skin documented in this encounter Care Teams Clinical Resource Coordinator Relationship Specialty Start Date End Date Kale Rose DO [address] [facility] [place] [address] PCP - General Internal Medicine 01/11/15 documented as of this encounter
--- OUTSIDE RECORDS SUMMARY | 2024-09-22 17:21 | XMS_ITS | Encounter Summary ---
Author Organization [facility] Address [address] [place] [address] Phone Care Team Providers Care Valet Service Attendant Name Role Phone Kale Rose MD Unavailable [phone] Eliseo Nazario MD Unavailable [phone] Apolonia Schmitz RN Unavailable Unavailab Ezekiel Mckinney MD Unavailable [phone] Zoe Zavala MD Unavailable [phone] Mery Lechuga OD Unavailable [phone] Navneet Rodriguez MD Unavailable [phone] Rafy Camilo DO Primary Care Provider [phone] Encounter Details Date Type Department Care Team (Late st Contact Info) Description 07/31/2024 Results Follow-Up [facility] [address] [place] [address] Jef Sebastian PA [address] [place] [address] SCAN - RADIOLOGY/IMAGING Social History Tobacco Use Types Packs/Day Years Used Date Smoking Tobacco: Never Smokeless Tobacco: Never Alcohol Use Standard Drinks/Week Comments Yes 0 (1 standard drink = 0.6 oz pur e alcohol) occasional AUDIT-C Answer Date Recorded Q1: How often do you have a drink containing alc ohol? 2-4 times a month 11/07/2023 Q2: How many drinks containi ng alcohol do you have on a typical day when you are drinking? 1 or 2 11/07/2023 Q3: How often do you have si x or more drinks on one occasion? Never 11/07/2023 Hunger Vital Sign Answer Date Recorded Within the past 12 months, y ou worried that your food would run out before you got the money to buy more. Never true 08/06/19 24 Within the past 12 months, t he food you bought just didn't last and you didn't have money to get more. 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 Gender Identity Male 01/14/2020 12:17 PM GENERAL HANDLING SUPERVISOR Sexual Orientation Straight 05/31/2019 8: 40 AM [...] documented as of this encounter Care Teams Valet Service Attendant Relationship Specialty Start Date End Date Rafy Camilo DO [address] [place] [address] PCP - General Internal Medicine 03/27/24 Kale Rose MD [address] [place] [address] 02/18/20 Eliseo Nazario MD [address] [facility] [address] [place] [address] Rheumatology 01/04/17 Apolonia Schmitz RN Registered Nurse 11/18/18 Ezekiel Key MD Referring Physician Gastroenterology 04/28/19 Zoe Zavala MD [address] [facility] [address] [facility] [phone] [place] [address] Anesthesiologist Pain Management 10/13/20 Mery Lechuga OD [address] [place] [address] Optometry 10/19/21 Navneet Rodriguez MD [address] [place] [address] Referring Physician Hematology 12/20/21 documented as of this encounter
--- OUTSIDE RECORDS SUMMARY | 2024-09-22 17:21 | XMS_ITS | Encounter Summary ---
Author Organization [facility] Address [address] [place] [address] Care Team Providers Care Machine Stitcher Name Role Phone Kale Rose DO Primary Care Provider Encounter Details Date Type Department Care Team (Late st Contact Info) Description 02/12/2023 Lab Requisition [facility] - DermPath Lab [address] [facility], [place] [id number] Jovany Vaughn MD [facility] DERMATOLOGY [address] [place] [phone] Neoplasm of uncertain behavior of skin Social History Tobacco Use Types Packs/Day Years Used Date Smoking Tobacco: Never Assessed Sex and Gender Information Value Date Recorded Sex Assigned at Not on file Legal Sex Male 10:14 AM CHICKEN CATCHER Gender Identity Not on file Sexual Orientation Not on file documented as of this encounter Plan of Treatment Not on file documented as of this encounter Procedures Procedure Name Priority Date/Time Associated Diagnosis Comments DERMATOPATHOLOGY Routine 02/12/2023 3:33 AM CHICKEN CATCHER Neoplasm of uncertain behavior of skin documented in this encounter Results * DERMATOPATHOLOGY (02/12/2023 3:33 AM CHICKEN CATCHER) Case Report Dermatopathology Report Case: [id number] Authorizing Provider: Jvoany Vaughn MD Collected: 02/12/2023 03:33 AM Ordering Location: [facility] DermPath Lab Received: 02/13/2023 12:36 PM Pathologist: Duyen Quintana MD Specimen: Skin, left mid upper back 4:22 PM [facility] DERMATOPATHOLOGY LABORATORY Final Diagnosis Specimen A. 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 Benign Nevus vs. Blue Nevus vs. Melanoma 4:22 PM [facility] DERMATOPATHOLOGY LABORATORY Gross Description Specimen A: Received is one formalin filled container labeled with the patient's name and designated left mid upper back. The specimen consists of a shave biopsy measuring 7x5x1 mm. Jar 0. 4:22 PM [facility] DERMATOPATHOLOGY LABORATORY Microscopic Description Specimen A. SKIN, left mid upper back: Within the dermis there are oval, spindle-shaped and dendritic melanocytes with melanophages. The melanocytes are positive for MART-1/Melan A stain but are negative for Factor 13A. 4:22 PM [facility] DERMATOPATHOLOGY LABORATORY Disclaimer An external and internal positive and negative controls are appropriate for the histochemical, immunohistochemical and immunofluorescence stain(s) in this case (if any), except where stated explicitly. The performance characteristics of the stain(s) cited in this report were developed and its performance characteristic determined by the Dermatopathology Laboratory at [facility], directed by Dr. Vaughn Harley. These tests need not be, and therefore are not, approved by the [place] Food and Drug Administration. The tests are used for clinical purposes. Billing Codes Specimen Charges Stain Charges 23729 1 63422 98062 1 1 4 4:22 PM [facility] DERMATOPATHOLOGY LABORATORY Embedded Images 4:22 PM [facility] DERMATOPATHOLOGY LABORATORY Pathology/Cytolo gy TISSUE SPECIMEN FROM SKIN / Unknown 02/12/2023 3:33 AM CHICKEN CATCHER 02/13/2023 12:36 PM CHICKEN CATCHER Jovany Vaughn MD LAB - PATHOLOGY/CYTOLOGY ORDE TRACEY Final Result DERMATOPATHOLOGY LABORATORY [facility] - Department of Derm[facility]ology [facility] [address] [facility], [address]rd [address] [phone] documented in this encounter Visit Diagnoses Diagnosis Neoplasm of uncertain behavior of skin documented in this encounter Care Teams Machine Stitcher Relationship Specialty Start Date End Date Kale Rose DO [address] [facility] [address] [place] [address] PCP - General Internal Medicine 01/11/15 documented as of this encounter
--- OUTSIDE RECORDS SUMMARY | 2024-09-22 17:21 | XMS_ITS | Encounter Summary ---
Author Organization [facility] Address [address] [place] [address] Care Team Providers Care Spray Rig Operator Name Role Phone Kale Rose MD Primary Care Provider +- [phone] Kale Rose MD Primary Care Provider + [phone] Kale Rose MD Unavailable [phone] Eliseo Nazario MD Unavailable [phone] Apolonia Schmitz RN Unavailable Unavailab Ezekiel Mckinney MD Unavailable [phone] Zoe Zavala MD Unavailable [phone] Mery Lechuga OD Unavailable [phone] Navneet Rodriguez MD Unavailable [phone] Rafy Camilo DO Primary Care Provider [phone] Reason for Visit * Reason Onset Date Comments Appointment 02/07/2019 Encounter Details Date Type Department Care Team (Late st Contact Info) Description 02/07/2019 Telephone [facility] at the [place] [facility], [facility] Advanced Medicine [address] [place] [address] Zoe Zavala MD [address] [facility] [phone] [place] [address] Appointment Social History Tobacco Use Types Packs/Day Years Used Date Smoking Tobacco: Never Smokeless Tobacco: Never Alcohol Use Standard Drinks/Week Comments Yes 0 (1 standard drink = 0.6 oz pur e alcohol) 1 drink per week Sex and Gender Information Value Date Recorded Sex Assigned at Not on file Legal Sex Male 11:58 PM ELECTRONICS MANUFACTURER Gender Identity Male 01/14/2020 12:17 PM ELECTRONICS MANUFACTURER Sexual Orientation Straight 05/31/2019 8: 40 AM [...] Infection Onset Date Last Indicated Resolved Time COVID: Suspected 08/09/2019 08/09/2019 08/10/2019 5:16 PM CDT Respiratory Infection (YOCASTA), contact + droplet Comment:Automatically added due to negative COVID-19 result. 08/10/2019 08/10/2019 08/11/2019 11: 39 AM CDT COVID: Suspected Comment:IP/ID review: pt d/c from precautions. Khadra Rich RN 08/11/2019 08/11/2019 08/11/2019 08/11/2019 11:39 AM CDT COVID19 Comment:01/17/2020 03/15/2020 03/14/2020 documented as of this encounter Care Teams Spray Rig Operator Relationship Specialty Start Date End Date Kale Rose MD [address] [facility] [address] [place] [address] PCP - General 05/05/16 02/17/20 Kale Rose MD [address] [place] [address] PCP - General 02/18/20 03/26/24 Rafy Camilo DO [address] [place] [address] PCP - General Internal Medicine 03/27/24 Kale Rose MD [address] [place] [address] 02/18/20 Eliseo Nazario MD [address] [place] [address] Rheumatology 01/04/17 Apolonia Schmitz RN Registered Nurse 11/18/18 Ezekiel Key MD Referring Physician Gastroenterology 04/28/19 Zoe Zavala MD [address] [facility] [phone] [place] [address] Anesthesiologist Pain Management 10/13/20 Mery Lechuga OD [address] [place] [address] Optometry 10/19/21 Navneet Rodriguez MD [address] [facility] [address] [place] [phone] Referring Physician Hematology 12/20/21 documented as of this encounter
--- OUTSIDE RECORDS SUMMARY | 2024-09-22 17:21 | XMS_ITS | Encounter Summary ---
Author Organization [facility] Address [address] [place] [address] Care Team Providers Care Oracle Programmer Analyst Name Role Phone Kale Rose MD Primary Care Provider + [phone] Kale Rose MD Unavailable [phone] Eliseo Nazario MD Unavailable [phone] Apolonia Schmitz RN Unavailable Unavailab Ezekiel Mckinney MD Unavailable Zoe Zavala MD Unavailable [phone] Mery Lechuag OD Unavailable Navneet Rodriguez MD Unavailable [phone] Rafy Camilo DO Primary Care Provider [phone] Encounter Details Date Type Department Care Team (Late st Contact Info) Description 05/30/2022 Telephone [facility] [place] [facility] [address] [facility] Advanced Medicine [address] [place] [address] Zoe Zavala MD [address] [facility] [phone] [place], [place] [id number] Social History Tobacco Use Types Packs/Day Years Used Date Smoking Tobacco: Never Smokeless Tobacco: Never Alcohol Use Standard Drinks/Week Comments Yes 0 (1 standard drink = 0.6 oz pur e alcohol) occasional AUDIT-C Answer Date Recorded Q1: How often do you have a drink containing alc ohol? 2-3 times a week 05/29/2022 Q2: How many drinks containi ng alcohol do you have on a typical day when you are drinking? 1 or 2 05/29/2022 Q3: How often do you have si x or more drinks on one occasion? Never 05/29/2022 Sex and Gender Information Value Date Recorded Sex Assigned at Not on file Legal Sex Male 11:58 PM SHIP BOSS Gender Identity Male 01/14/2020 12:17 PM SHIP BOSS Sexual Orientation Straight 05/31/2019 8: 40 AM [...] documented as of this encounter Care Teams Oracle Programmer Analyst Relationship Specialty Start Date End Date Kale Rose MD [address] [address] PCP - General 02/18/20 03/26/24 Rafy Camilo DO [address] [address] PCP - General Internal Medicine 03/27/24 Kale Rose MD [address] [address] 02/18/20 Eliseo Nazario MD [address] [facility] [address] [place] [address] Rheumatology 01/04/17 Apolonia Schmitz RN Registered Nurse 11/18/18 Ezekiel Key MD Referring Physician Gastroenterology 04/28/19 Zoe Zavala MD [address] [facility] [address] [facility] [phone] [place] [address] Anesthesiologist Pain Management 10/13/20 Mery Lechuga OD [address] [place] [address] Optometry 10/19/21 Navneet Rodriguez MD [address] [facility] [address] [place] [address] Referring Physician Hematology 12/20/21 documented as of this encounter
--- OUTSIDE RECORDS SUMMARY | 2024-09-22 17:21 | XMS_ITS | Clinical Summary ---
Author Organization [facility] Address [address] [facility] [place] [address] Care Team Providers Care President And Chief Operating Officer Name Role Phone Kale Rose DO Primary Care Provider [phone] Source Comments [facility],non-owned Affiliates and Associated Physician Practices is amultiple site organization consisting of ambulatory clinics and hospital sitesin [place], [place], [place] and [place]. This disclosure is being madepursuant to the Care Everywhere program and may not contain all information available regarding this patient. 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 BURN OUT 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 Gender Identity Not on file Sexual Orientation Not on file Plan of Treatment Health Maintenance Due Date Last Done Comments COLOGUARD (AGES 45-75) - COL ON CA SCREENING 1954 COLON MONITORING 1954 COLONOSCOPY - COLON CA SCREENING 1954 CT COLONOGRAPHY - COLON CA SCREENING 1954 Colorectal Cancer Screening 1954 FIT - COLON CA SCREENING 1954 FLEX SIG - COLON CA SCREENING 1954 LIPID TESTING 1954 HEPATITIS C SCREENING 12/30/1971 DTAP/TDAP/TD VACCINES (1 - Tdap) 1973 PNEUMOCOCCAL VACCINE 50+ (1 of 1 - PCV) 01/04/2004 ZOSTER VACCINE (1 of 2) 01/04/2004 COVID-19 VACCINE (1 - 2023-2 5 season) 2023 DEPRESSION SCREENING 02/06/2024 MEDICARE AWV CALENDAR YEAR 2024 INFLUENZA VACCINE (#1) 2024 10/23/2015 Respiratory Syncytial Virus (RSV) Vaccine Pt: or over 60 yrs (1 - 1-dose 75+ series) 2029 HEPATITIS B VACCINE Aged Out No longe r eligible based on patient's age to complete this topic HIB VACCINE Aged Out No longer eligi ble based on patient's age to complete this topic HPV VACCINE Aged Out No longer eligi ble based on patient's age to complete this topic MENINGOCOCCAL (Group B) VACC INE SHARED DECISION-MAKING Aged Out No longer eligibl e based on patient's age to complete this topic MENINGOCOCCAL GROUPS A/C/Y/W VACCINE Aged Out No longer eligible b ased on patient's age to complete this topic Procedures Procedure Name Priority Date/Time Associated Diagnosis Comments DERMATOPATHOLOGY Routine 07/18/2024 12:0 0 AM CDT Neoplasm of uncertain behavior of skin from Last 3 Months Results * DERMATOPATHOLOGY (07/18/2024 12:00 AM CDT) Case Report Dermatopathology Report Case: [id number] Authorizing Provider: Jovany Vaughn MD Collected: 07/18/2024 12:00 AM Ordering Location: [facility] - Received: 07/21/2024 10:58 AM DermPath Lab Pathologist: Martita Harley MD Specimen: Skin, right cheek 2:24 PM CDT DERMATOPATHOLOGY LABORATORY Final Diagnosis Specimen A. SKIN, right cheek: BASAL CELL CARCINOMA, NODULAR TYPE (C44.319) 5 2:24 PM CDT DERMATOPATHOLOGY LABORATORY at [address] [...] characteristic determined by the Dermatopathology Laboratory at [facility], directed by Dr. Vaughn Harley. These tests need not be, and therefore are not, approved by the [place] Food and Drug Administration. The tests are used for clinical purposes. Billing Codes Specimen Charges Stain Charges 38349 1 5 2:24 PM CDT DERMATOPATHOLOGY LABORATORY Embedded Images 2:24 PM CDT DERMATOPATHOLOGY LABORATORY Pathology/Cytolog y TISSUE SPECIMEN FROM SKIN / Unknown 07/18/2024 07/21/2024 10:58 AM CDT Jovany Vaughn MD LAB - PATHOLOGY/CYTOLOGY ALBINA WEBB Final Result DERMATOPATHOLOGY LABORATORY [facility] - Department of Dermatology [address] [place] [address], [facility] [phone] from Last 3 Months Insurance AETNA [facility] Address[facility] [id number] [place] [phone] AETNA MEDICARE ADV AETNA AETNA AETNA AETNA AETNA AETNA AETNA AETNA Care Teams President And Chief Operating Officer Relationship Specialty Start Date End Date Kale Rose DO [address] [facility] [address] [place] [address] PCP - General Internal Medicine 01/11/15
--- OUTSIDE RECORDS SUMMARY | 2024-09-22 17:21 | XMS_ITS | Encounter Summary ---
Author Organization [facility] Address [address] [place] [address] Care Team Providers Care Suspension Cord Tier Name Role Phone Kale Rose MD Primary Care Provider + [phone] Kale Rose MD Unavailable [phone] Eliseo Nazario MD Unavailable [phone] Apolonia Schmitz RN Unavailable Unavailab Ezekiel Mckinney MD Unavailable [phone] Zoe Zavala MD Unavailable [phone] Mery Lechuga OD Unavailable [phone] Navneet Rodriguez MD Unavailable [phone] Rafy Camilo DO Primary Care Provider [phone] Reason for Visit * Reason Onset Date Comments Pre-Surgical Call 12/02/2020 Encounter Details Date Type Department Care Team (Late st Contact Info) Description 12/02/2020 Telephone [facility] Center at the [place] [facility] [address] [facility] Advanced Medicine [address] [place], [place] [id number] Zoe Zavala MD [address] [facility] [address] [facility] [phone] [place], [place] [id number] Pre-Surgical Call Social History Tobacco Use Types Packs/Day Years Used Date Smoking Tobacco: Never Smokeless Tobacco: Never Alcohol Use Standard Drinks/Week Comments Yes 0 (1 standard drink = 0.6 oz pur e alcohol) occasional AUDIT-C Answer Date Recorded Q1: How often do you have a drink containing alc ohol? Monthly or less 12/06/2020 Q2: How many drinks containi ng alcohol do you have on a typical day when you are drinking? 1 or 2 12/06/2020 Q3: How often do you have si x or more drinks on one occasion? Less than monthly 12/06/2020 Sex and Gender Information Value Date Recorded Sex Assigned at Not on file Legal Sex Male 11:58 PM CLEANING TECHNICIAN Gender Identity Male 01/14/2020 12:17 PM CLEANING TECHNICIAN Sexual Orientation Straight 05/31/2019 8: 40 AM CDT documented as of this encounter Miscellaneous Notes * Pre-Procedure Instructions - Nasreen Davies RN - 12/02/2020 10:59 AM CDT Pre procedure instructions given to patient. Pt verbalized understanding. Pt confirmed he is not onany blood thinners. Pt has no further questions or concerns. documented in this encounter Plan of Treatment Not on [...] documented as of this encounter Care Teams Suspension Cord Tier Relationship Specialty Start Date End Date Kale Rose MD [address] [facility] [address] [place] [address] PCP - General 02/18/20 03/26/24 Rafy Camilo DO [address] [place] [address] PCP - General Internal Medicine 03/27/24 Kale Rose MD [address] [place] [address] 02/18/20 Eliseo Nazario MD [address] [facility] [address] [place] [address] Rheumatology 01/04/17 Apolonia Schmitz RN Registered Nurse 11/18/18 Ezekiel Key MD Referring Physician Gastroenterology 04/28/19 Zoe Zavala MD [address] [facility] [address] [facility] [phone] [place] [address] Anesthesiologist Pain Management 10/13/20 Mery Lechuga OD [address] [place] [address] Optometry 10/19/21 Navneet Rodriguez MD [address] [facility] [address] [place] [address] Referring Physician Hematology 12/20/21 documented as of this encounter
--- OUTSIDE RECORDS SUMMARY | 2024-09-22 17:21 | XMS_ITS | Clinical Summary ---
Author Organization [facility] Address [address] [place] [address] Care Team Providers Care Hospice Care Consultant Name Role Phone Kale Rose MD Unavailable [phone] Eliseo Nazario MD Unavailable [phone] Apolonia Schmitz RN Unavailable Unavailab Ezekiel Mckinney MD Unavailable [phone] Zoe Zavala MD Unavailable [phone] Mery Lechuga OD Unavailable [phone] Navneet Rodriguez MD Unavailable [phone] Rafy Camilo DO Primary Care Provider [phone] Allergies No known active allergies Medications gemfibrozil (LOPID) 600 mg tablet take 1 tablet by oral route 2 times every day 30 minutes before morning and evening meal 0 0 01/12/20 15 Active Additional Information Patient taking differently:600 mgoral 2 times daily, Reported on 05/29/2022 senna-docusate (PERICOLACE) 8.6-50 mgIndications:c onstipation Take 2 tablets by mouth 2 (two) times a day. 90 tablet 12/05/19 18 Active Additional Information Patient taking differently: 1 tabletoral 2 times daily, Indications: constipation, Reported on 12/12/2021 ezetimibe (ZETIA) 10 mg tabletIndicatio ns:hyperlipidem ia Take 1 tablet (10 mg total) by mouth nightly Active multivitamin capsuleIndicati ons:Vitamin Deficiency Prevention Take 1 capsule by mouth every morning Active tamsulosin (FLOMAX) 0.4 mg extended release capsuleIndicati ons:benign prostatic hyperplasia with lower urinary tract sx Take 1 capsule (0.4 mg total) by mouth every morning 03/10/19 20 Active finasteride (PROSCAR) 5 mg tablet Take 1 tablet (5 mg total) by mouth daily 10/01/19 21 Active baclofen (LIORESAL) 10 mg tablet Take 1 tablet (10 mg total) by mouth nightly as needed for muscle spasms 30 tablet 11 01/28/20 21 Active omeprazole (PriLOSEC) 20 mg capsule Take 1 capsule (20 mg total) by mouth daily Active ferrous sulfate ER 324 mg (65 mg iron) EC tabletIndicatio ns:Iron Deficiency Anemia Take 65 mg by mouth Active levothyroxine (SYNTHROID) 75 mcg tablet Take 1 tablet (75 mcg total) by mouth daily 07/12/19 22 Active Xiidra 5 % dropperette 08/23/19 22 Active docusate sodium (COLACE) 100 mg capsule Take 1 capsule (100 mg total) by mouth 2 (two) times a day 07/13/19 24 Active metoprolol XL (TOPROL-XL) 25 mg extended release tablet TAKE 1 TABLET 25 MG ORALLY EVERY DAY AT BEDTIME 09/05/19 24 Active HYDROcodone-iam taminophen (NORCO) 5-325 mg per tabletIndicatio ns:Pain Take 1 tablet by mouth every 6 (six) hours as needed for pain 20 tablet 10/22/19 24 Active traZODone (DESYREL) 150 mg tablet TAKE 1 TABLET BY MOUTH EVERY DAY AT NIGHT 90 tablet 3 11/28/19 24 Active amiodarone (PACERONE) 200 mg tablet 12/27/19 24 Active folic acid (FOLVITE) 1 mg tablet TAKE 1 TABLET BY MOUTH EVERY DAY 90 tablet 1 07/02/19 25 Active imipramine (TOFRANIL) 50 mg tablet TAKE 1 TABLET BY MOUTH EVERY DAY AT NIGHT 90 tablet 3 07/23/19 25 Active methotrexate 2.5 mg tabletIndicatio ns:Rheumatoid Arthritis TAKE 8 TABS BY MOUTH WEEKLY 96 tablet 08/02/19 25 Active gabapentin (NEURONTIN) 600 mg tabletIndicatio ns:Flatback syndrome TAKE 2 CAPSULES BY MOUTH IN THE MORNING, 2 CAPS IN THE AFTERNOON, AND TAKE 2 CAPS AT BEDTIME 180 tablet 1 08/29/19 25 Active sulfaSALAzine (AZULFIDINE) 500 mg tablet TAKE 2 TABLETS BY MOUTH TWICE A DAY 360 tablet 09/02/19 25 Active hydroxychloroqu ine (PLAQUENIL) 200 mg tablet TAKE 1 TABLET BY MOUTH TWICE A DAY 180 tablet 09/05/19 25 Active TiZANidine (ZANAFLEX) 4 mg capsule TAKE 1 CAPSULE (4 MG TOTAL) BY MOUTH NIGHTLY 60 capsule 6 07/09/19 24 025 sulfaSALAzine (AZULFIDINE) 500 mg tablet TAKE 2 TABLETS BY MOUTH TWICE A DAY 360 tablet 06/06/19 25 025 Discontinued hydroxychloroqu ine (PLAQUENIL) 200 mg tablet TAKE 1 TABLET BY MOUTH TWICE A DAY 180 tablet 06/10/19 25 025 Discontinued gabapentin (NEURONTIN) 600 mg tabletIndicatio ns:Flatback syndrome TAKE 2 CAPSULES BY MOUTH IN THE MORNING, 2 CAPS IN THE AFTERNOON, AND TAKE 2 CAPS AT BEDTIME 180 tablet 1 07/05/19 25 025 Discontinued Active Problems Problem Noted Date Diagnosed Date [...] 09/27/2023 Assessment & Plan (03/31/2024 10:26 AM JITNEY DRIVER): Has had previous right rotator cuff repair. Is following with Orthopedics. Orthopedics has noted another rotator cuff tear and recommended reverse shoulder arthroplasty, which he defers at this time. Completed physical therapy without significant benefit. Continue to follow with Orthopedics. Assessment & Plan (12/28/2023 10:14 AM JITNEY DRIVER): Has had previous right rotator cuff repair. [...] 03/23/2023 Assessment & Plan (03/23/2023 9:01 AM JITNEY DRIVER): Since last visit, has noted increased left knee pain. Has had previous left TKA. Is in the process scheduling with a new orthopedic physician for evaluation. Defers an x-ray at this time. Angular cheilitis 09/11/2022 Assessment & Plan (09/11/2022 9:27 AM CDT): Following with derm. CMC arthritis 06/19/2022 Assessment & Plan (12/12/2022 9:06 AM JITNEY DRIVER): Has chronic residual bilateral CMC discomfort (worse on the left). Has deferred OT for CMC bracing. Previously did discuss information on obtaining CMC brace through [employer]. Previous left CMC injection, did offered temporary benefit. Could consider repeat injection, if symptoms worsened. Assessment & Plan (09/11/2022 9:26 AM CDT): Has chronic residual bilateral CMC discomfort. Left CMC injection after last did offer some benefit. Has deferred OT for CMC bracing. Previously did discuss information on obtaining CMC brace through [employer]. Assessment & Plan (06/19/2022 8:58 AM CDT): A primary complaint today is persistent bilateral CMC discomfort, which is much more significant on the left. Continues to defer OT for CMC bracing. Discussed left ultrasound-guided CMC injection, which was amenable to. Discussed risks and benefits. We did also discuss information on obtaining CMC brace through [employer]. Neck pain 12/19/2021 Assessment & Plan (12/19/2021 9:02 AM JITNEY DRIVER): Has previously been evaluated by Neurosurgery with recommendations for neck surgery, per his report, which she deferred. Neck pain has exacerbated since a recent fall off recumbent bike 2 weeks prior. Will obtain baseline imaging and sent to physical therapy. Acute pain of left shoulder 12/19/2021 Assessment & Plan (03/20/2022 2:09 PM JITNEY DRIVER): Left shoulder pain developed after fall from [...] persist Assessment & Plan (12/19/2021 9:03 AM JITNEY DRIVER): Left shoulder pain developed after recent fall [...] 12/19/2021 Assessment & Plan (12/19/2021 9:05 AM JITNEY DRIVER): Has numbness and tingling in the ulnar [...] today. Assessment & Plan (02/08/2021 10:46 AM JITNEY DRIVER): He notes compression fracture seen on recent [...] (07/07/2019): Added automatically from request for surgery [id number] Crohn's disease of both small and large intestin e 07/03/2019 Anemia, unspecified 06/25/2019 Assessment & Plan (12/19/2021 9:00 AM JITNEY DRIVER): Has had prior blood transfusions. Follows with [...] time. Assessment & Plan (04/02/2018 11:39 AM JITNEY DRIVER): As above, will obtain CXR. Advised to fu with PCP. Encounter for long-term (current) use of medicat ions 03/04/2018 Assessment & Plan (07/09/2024 10:12 AM CDT): Routine labs today. Continue routine eye exams. Assessment & Plan (03/31/2024 10:26 AM JITNEY DRIVER): Routine labs today. Continue routine eye exams. Assessment & Plan (12/28/2023 10:14 AM JITNEY DRIVER): Routine labs today. Continue routine eye exams. [...] hydroxychloroquine Assessment & Plan (12/12/2022 9:06 AM JITNEY DRIVER): Routine labs today. Continue routine eye exams. Assessment & Plan (09/11/2022 9:27 AM CDT): Routine labs today. Continue routine eye exams. Assessment & Plan (06/19/2022 8:57 AM CDT): Routine labs today. Continue routine eye exams. Assessment & Plan (03/20/2022 2:10 PM JITNEY DRIVER): Routine labs today. Continue routine eye exams. Assessment & Plan (12/19/2021 9:00 AM JITNEY DRIVER): Routine labs today. Continue routine eye exams. Assessment & Plan (10/19/2021 9:26 AM CDT): Routine labs today. Continue routine eye exams. Assessment & Plan (08/18/2021 9:01 AM CDT): Routine labs today. Continue routine eye exams. Assessment & Plan (02/08/2021 10:46 AM JITNEY DRIVER): Routine labs today. Continue routine eye exams. Assessment & Plan (11/10/2020 10:13 AM CDT): Routine labs today. Continue routine eye exams. Assessment & Plan (08/10/2020 9:43 AM CDT): Routine labs today. Continue routine eye exams. Assessment & Plan (05/11/2020 9:13 AM CDT): Routine labs today. Continue routine eye exams. Assessment & Plan (02/13/2020 10:37 AM JITNEY DRIVER): Routine labs today. Continue routine eye exams. [...] exams. Assessment & Plan (01/14/2019 10:29 AM JITNEY DRIVER): Routine labs today. Continue routine eye exams. Assessment & Plan (10/15/2018 12:12 PM CDT): Routine labs today. Continue routine eye exams. Assessment & Plan (07/16/2018 9:52 AM CDT): Routine labs today. Continue routine eye exams. Assessment & Plan (03/04/2018 9:16 AM JITNEY DRIVER): Routine labs today. Continue routine eye exams. Hyperlipemia 11/28/2017 Insomnia 11/28/2017 GERD (gastroesophageal reflux disease) 8 Urinary retention 11/28/2017 Constipation 11/28/2017 Pseudarthrosis following spinal fusion 8 Overview (10/01/2017): Added automatically from request for surgery [id number] Scoliosis 10/01/2017 Overview (10/01/2017): Added automatically from request for surgery [id number] Spinal stenosis, lumbar wilfredo on, with neurogenic claudication 10/01/2017 Overview (10/01/2017): Added automatically from request for surgery [id number] Chills without fever 09/10/2017 Assessment & Plan (04/02/2018 11:39 AM JITNEY DRIVER): Continues to be a primary complaint for [...] time. Assessment & Plan (02/08/2021 10:46 AM JITNEY DRIVER): Status post lumbar fusion on 11/28/2017. Notes [...] benefit. Assessment & Plan (02/13/2020 10:37 AM JITNEY DRIVER): Status post lumbar fusion on 11/28/2017. Continue [...] benefit. Assessment & Plan (01/14/2019 10:29 AM JITNEY DRIVER): Status post lumbar fusion on 11/28/2017. Continues [...] surgery. Assessment & Plan (04/02/2018 11:36 AM JITNEY DRIVER): S/p lumbar fusion on 11/28/2017. Continue to follow with PM and spinal surgery. Assessment & Plan (03/04/2018 9:15 AM JITNEY DRIVER): S/p fusion on 11/28/2017 with persistent back pain and radicular symptoms down the R leg. Is scheduled to see surgeon next week. Assessment & Plan (2018 11:13 AM JITNEY DRIVER): Patient is S/p S1-T10 fusion on 11/28/2017. [...] week. Assessment & Plan (02/12/2017 12:37 PM JITNEY DRIVER): Still with ongoing low back pain which he is s/p 2 L-spine surgieries with no benefit. Follows with ortho spine. On lyrica and tizanidone with mild benefit. Assessment & Plan (01/04/2017 9:59 AM JITNEY DRIVER): Had a failed L-spine fusion last year [...] needed. Assessment & Plan (03/31/2024 10:27 AM JITNEY DRIVER): CDAI 12. Alvarado does continue note chronic [...] needed. Assessment & Plan (12/28/2023 10:15 AM JITNEY DRIVER): CDAI 14. Alvarado does continue to have [...] needed. Assessment & Plan (03/23/2023 8:59 AM JITNEY DRIVER): CDAI 15. Alvarado remains a moderate disease [...] exams. Assessment & Plan (12/12/2022 9:05 AM JITNEY DRIVER): CDAI 11. Alvarado remains a moderate disease [...] needed. Assessment & Plan (03/20/2022 2:09 PM JITNEY DRIVER): Cdai 15. Overall, joints have remained stable [...] needed. Assessment & Plan (12/19/2021 9:00 AM JITNEY DRIVER): CDAI 16. Since last visit, has increase [...] needed. Assessment & Plan (02/08/2021 10:45 AM JITNEY DRIVER): CDAI 23. Continues to have persistent joint [...] the bilateral hands with persistent reduction in associate of science in nursing strength. Synovitis does persist on exam. Does [...] exams. Assessment & Plan (02/13/2020 10:35 AM JITNEY DRIVER): CDAI 10. Overall, notes that joints remained fairly stable since last visit. Does continue to note some generalized stiffness the morning for 15-30 minutes with some reduced associate of science in nursing strength, discomfort in the hands. Does continue [...] with generalized stiffness in the morning. Reduced associate of science in nursing strength. Synovitis does persist on exam. Given [...] exams. Assessment & Plan (01/14/2019 10:30 AM JITNEY DRIVER): CDAI 6. Continues to note swelling and [...] exams. Assessment & Plan (04/02/2018 11:33 AM JITNEY DRIVER): Moderate CDAI. Patient continues to note generalized [...] Nazario. Assessment & Plan (03/04/2018 9:12 AM JITNEY DRIVER): Moderate CDAI. Patient has noted increased pain [...] below. Assessment & Plan (2018 11:11 AM JITNEY DRIVER): Moderate CDAI. Continues to have pain and [...] months. Assessment & Plan (02/12/2017 9:02 AM JITNEY DRIVER): Remains stable on current regimen. Has occasional [...] months. Assessment & Plan (01/04/2017 9:56 AM JITNEY DRIVER): Still with some stiffness in hands and [...] prior. Assessment & Plan (04/02/2018 11:35 AM JITNEY DRIVER): Continues to have some amandeep 1st mtp joint pain (L>R). 50% improvement in L 1st mtp joint with US guided steroid injection after last visit. L CMC joint painful at times as well. Rediscussed PT for bracing, although patient again defers. No benefit with Pennsaid. In need of L TKA. Will be considering in the near future. Assessment & Plan (03/04/2018 9:14 AM JITNEY DRIVER): Major complaint today is bilateral 1st MTP [...] replacement. Assessment & Plan (2018 11:12 AM JITNEY DRIVER): Patient is in need of a left [...] issue. Assessment & Plan (02/12/2017 9:03 AM JITNEY DRIVER): Has increased pain in left knee and is scheduled to have L TKR in april. Pt to hold MTX 2 weeks before and 2 weeks after surgery. Assessment & Plan (01/04/2017 10:00 AM JITNEY DRIVER): Symptoms worse in knees L>R. Pt reports [...] of hand 01/31/2013 Arthralgia of wrist 10/22/2012 Resolved Problems Problem Noted Date Diagnosed Date Resolved Date Thoracic spondylosis 06/27/2021 022 Encounters Date Type Department Care Team Description 07/31/2024 Results Follow-Up [facility] [address] [place] [phone] Jef Sebastian PA SCAN - RADIOLOGY/IMAGING 07/31/2024 Orders Only [facility] [address] [place] [phone] Jef Sebastian PA 07/10/2024 Results Follow-Up [facility] [address] [place] [phone] Jef Sebastian PA Erythrocyte sedimentation rate, CRP (acute phase), Comprehensive metabolic panel, Additional followed-up results: 4 07/09/2024 8:45 AM CDT Office Visit [facility] [address] [place] [phone] Jef Sebastian PA Rheumatoid arthritis involving multiple sites with positive rheumatoid factor (HCC) (Primary Dx); RUQ pain; Encounter for long-term (current) use of medications from Last 3 Months Immunizations Immunization Administration Dates Next Due Influenza, Quad, Adjuvantate d, Intramuscular 12/05/2020,10/17/2019 Influenza, Quadrivalent, Spl it, Preservative Free, Intramuscular 11/04/2018,10/22/2017,10/21/2017,11/10 Influenza, Trivalent, Adjuva nted, Intramuscular 10/23/2015 Influenza, Trivalent, High D ose, Split, Preservative Free, Intramuscular 11/04/2018 Influenza, Trivalent, IM (MDV) 10/24/2013,2012 Tdap 12/19/2013 Surgical History Surgery Date Site/Laterality Comments HERNIA REPAIR Hernia repair CARPAL TUNNEL RELEASE 02/05/2014 - 02/04/2015 Carpal tunnel release SPINAL FUSION 2015 L3-4, 2016 L3-5 KNEE ARTHROSCOPY ROTATOR CUFF REPAIR WRIST SURGERY 02/06/2012 - 02/04/2013 cyst excision PARTIAL KNEE ARTHROPLASTY 02/05/2014 - 02/04/2015 Right SKIN CANCER EXCISION 02/05/2007 - 02/05/2008 ESOPHAGEAL DILATION 02/06/2016 - 02/04/2017 TOTAL KNEE ARTHROPLASTY Right partial knee SHOULDER SURGERY rotator cuff repair CARPAL TUNNEL RELEASE MENISCUS SURGERY REPLACEMENT TOTAL KNEE Left IMAGE GUIDED DRAINAGE PERITONEAL OR RETROPERITONEAL FLUID COLLECTION 08/02/2019 N/A COLON SURGERY 07/23/2019 Laparoscopic-assisted right colectomy. ABSCESS CATHETER INJECTION 08/20/2019 N/A ABSCESS CATHETER INJECTION 08/22/2019 N/A ABSCESS CATHETER INJECTION 09/04/2019 N/A ABSCESS CATHETER INJECTION 09/11/2019 N/A ABSCESS CATHETER INJECTION 09/15/2019 N/A ABSCESS CATHETER INJECTION 09/25/2019 N/A ABSCESS CATHETER INJECTION 10/03/2019 N/A ABSCESS CATHETER INJECTION 10/10/2019 N/A NASAL SEPTOPLASTY W/ TURBINOPLASTY Medical History Medical History Date Comments Seasonal allergies Hyperlipidemia Rheumatoid arthritis (HCC) Hypothyroid Constipation post-op Urinary retention post-op Skin cancer GERD (gastroesophageal reflux disease) Anemia Frequent nosebleeds Low back pain Low back pain Crohn's disease (HCC) History of blood transfusion 03/2019 Low back pain Allergic rhinitis Autoimmune disease Sinusitis HL (hearing loss) Tinnitus Prostate infection Skin cancer Neck pain Joint pain Hypertension Family History Medical History Relation Name Comments Cancer Father Osorio Hearing loss Father Osorio Hypertension Father Osorio Skin cancer Father Osorio Stroke Father Osorio Heart disease Maternal Grandmother Arthritis Mother Hortencia Cancer Mother Hortencia Esophageal cancer Mother Hortencia Rheum arthritis Mother Hortencia Colon cancer Other Relation Name Status Comments Father Osorio Maternal Grandmother Mother Hortencia Other Social History Tobacco Use Types Packs/Day Years [...] on file Legal Sex Male 11:58 PM JITNEY DRIVER Gender Identity Male 01/14/2020 12:17 PM JITNEY DRIVER Sexual Orientation Straight 05/31/2019 8: 40 AM CDT Obstetrics History Last Filed Vital Signs Vital Sign Reading Time Taken Comments Blood Pressure 138/82 07/09/2024 8:41 AM CDT Pulse 67 07/09/2024 8:41 AM CDT Temperature 36.3 C (97.3 F) 10/22/2023 7:43 AM CDT Respiratory Rate 16 11/07/2023 3:31 PM CDT Oxygen Saturation 95% 07/09/2024 8:41 AM CDT Inhaled Oxygen Concentration - - Weight 90.3 kg (199 lb) 07/09/2024 8:41 AM CDT Height 179.1 cm (5' 10.5) 07/09/2024 8:41 AM CD T Body Mass Index 28.15 07/09/2024 8:41 AM CDT Plan of Treatment Health Maintenance Due Date Last Done Comments Depression Screening 1955 Hepatitis C Screening 1955 Hepatitis B Screening 01/04/1972 Zoster Vaccine (1 of 2) 1973 Well Visit 65+ 2019 Fall Risk Assessment 10/09/2020 10/10/2019 Covid-19 Vaccine (2023-2 5 season) 2023 11/12/2021, 05/23/2021, 10/06/2020, Additional history exists DTaP/Tdap/Td Vaccine (2 - Td or Tdap) 12/20/2023 12/19/2013 Influenza Vaccine (#1) 2024 2, 12/05/2020, 10/17/2019, Additional history exists Colon Cancer Screening-Colonoscopy 06/16/2029 06/17/2019 Prostate Cancer Screening-PSA Discontinued 05/03/2015 Colon Cancer Screening-CT Colonography Discontinued 06/17/2019 Colon Cancer Screening-DNA Stool Discontinued 06/17/19 Colon Cancer Screening-FIT Discontinued 06/17/2019 Colon Cancer Screening-Sigmoidoscopy Discontinued 06/17/2019 Pneumococcal vaccine 65+ Completed 08/24/2021, 11/05 Goals Goal Patient Goal Type Associated Problems [...] lifestyle strategies and compensatory methods as needed Medical Devices Implanted Type Area Barrel Planer Device Identifier Shelf Expiration Date Model / Serial / Lot Medtronic Sofamor Danek [id number] Infuse 18mm 26mm Absorbable Sponge Sterile Water Syringe Needle - [id number] Implanted:Qty: 1 on 11/28/2017 by Jef Calvo MD at [facility] Medtronic Sofamor Danek 08/05/2018 [id number] / / [id number] Depuy Spine [id number] Expedium 6.5mm 50mm Polyaxial Spine Screw Bone Titanium 5.5mm Arian - [id number] Implanted:Qty: 8 on 11/28/2017 by Jef Calvo MD at [facility] N/A: Spine Lumbar Depuy Spine [id number] / / Depuy Spine [id number] Expedium 6.5mm 60mm Polyaxial Spine Screw Bone Titanium 5.5mm Arian - [id number] Implanted:Qty: 2 on 11/28/2017 by Jef Calvo MD at [facility] N/A: Spine Lumbar Depuy Spine [id number] / / Depuy Spine [id number] Expedium 7.5mm 60mm 1 Innie Polyaxial Spine Thoracolumbar Screw - [id number] Implanted:Qty: 1 on 11/28/2017 by Jef Calvo MD at [facility] N/A: Spine Lumbar Depuy Spine [id number] / / Depuy Spine [id number] Expedium 8mm 60mm Polyaxial Spine Screw Bone Titanium - [id number] Implanted:Qty: 1 on 11/28/2017 by Jef Calvo MD at [facility] N/A: Spine Lumbar Depuy Spine [id number] / / Depuy Spine [id number] Expedium 9mm 50mm Polyaxial Spine Screw Bone Titanium - [id number] Implanted:Qty: 2 on 11/28/2017 by Jef Calvo MD at [facility] N/A: Spine Lumbar Depuy Spine [id number] / / Depuy Spine [id number] Expedium 9mm 55mm Polyaxial Spine Screw Bone Titanium - [id number] Implanted:Qty: 1 on 11/28/2017 by Jef Calvo MD at [facility] Depuy Spine [id number] / / Depuy Spine [id number] Expedium 9mm 55mm Polyaxial Spine Screw Bone Titanium - [id number] Implanted:Qty: 1 on 11/28/2017 by Jef Calvo MD at [facility] Depuy Spine [id number] / / Depuy Screw Implanted:Qty: 1 on 11/28/2017 by Jef Calvo MD at [facility] N/A: Spine Lumbar Depuy Spine [id number] / / Medtronic Sofamor Danek [id number] Infuse 18mm 26mm Absorbable Sponge Sterile Water Syringe Needle - [id number] Implanted:Qty: 1 on 11/28/2017 by Jef Calvo MD at [facility] Medtronic Sofamor Danek 08/05/2018 [id number] / / [id number] Medtronic Sofamor Danek [id number] Infuse 18mm 26mm Absorbable Sponge Sterile Water Syringe Needle - [id number] Implanted:Qty: 1 on 11/28/2017 by Jef Calvo MD at [facility] Medtronic Sofamor Danek 08/05/2018 [id number] / / [id number] [employer] [id number] Acupac Allograft Aseptic Frozen Graft 50cc Bone Cancellous Bone - [id number] - [id number] Implanted:Qty: 1 on 11/28/2017 by Jef Calvo MD at [facility] N/A: Spine Lumbar [employer] 08/02/2019 [id number] / [id number] / Tissue Acupac 100cc Aseptic 1mm To 4mm - [id number] - [id number] Implanted:Qty: 1 on 11/28/2017 by Jef Calvo MD at [facility] N/A: Spine Lumbar [employer] 05/31/2019 [id number] / [id number] / Depuy Spine [id number] Expedium 1 Inner Monoaxial Spine Screw Set Titanium - [id number] Implanted:Qty: 18 on 11/28/2017 by Jef Calvo MD at [facility] N/A: Spine Lumbar Depuy Spine [id number] / / Depuy Spine [id number] Expedium Viper 2 5.5mm 480mm Straight Arian Spinal - [id number] Implanted:Qty: 2 on 11/28/2017 by Jef Calvo MD at [facility] N/A: Spine Lumbar Depuy Spine [id number] / / Depuy Spine [id number] Expedium Viper 9mm 80mm Polyaxial Spine Sacral Alar Iliac Screw - [id number] Implanted:Qty: 1 on 11/28/2017 by Jef Calvo MD at [facility] N/A: Spine Lumbar Depuy Spine [id number] / / Depuy Spine [id number] Expedium Viper 9mm 100mm Polyaxial Spine Sacral Alar Iliac Screw - [id number] Implanted:Qty: 1 on 11/28/2017 by Jef Calvo MD at [facility] N/A: Spine Lumbar Depuy Spine [id number] / / Procedures Procedure Name Priority Date/Time Associated Diagnosis Comments CBC WITH AUTO DIFFERENTIAL Routine 08/19/2024 7:02 AM CDT Lymphopenia SCAN - RADIOLOGY/IMAGING 07/31/2024 11:48 AM CDT LIPASE Routine 07/09/2024 9:07 AM CDT AMYLASE Routine 07/09/2024 9:07 AM CDT CBC WITH AUTO DIFFERENTIAL Routine 07/09/2024 9:07 AM CDT Rheumatoid arthritis involving multiple sites with positive rheumatoid factor (HCC) Encounter for long-term (current) use of medications COMPREHENSIVE METABOLIC PANEL Routine 07/09/2024 9:07 AM CDT Rheumatoid arthritis involving multiple sites with positive rheumatoid factor (HCC) Encounter for long-term (current) use of medications CRP (ACUTE PHASE) Routine 07/09/2024 9:0 7 AM CDT Rheumatoid arthritis involving multiple sites with positive rheumatoid factor (HCC) Encounter for long-term (current) use of medications ERYTHROCYTE SEDIMENTATION RATE Routine 07/09/2024 9:07 AM CDT Rheumatoid arthritis involving multiple sites with positive rheumatoid factor (HCC) Encounter for long-term (current) use of medications COLONOSCOPY 06/17/2019 3:21 PM CDT PSA SCREEN Routine 05/03/2015 8:31 AM CDT from Last 3 Months or Most Recently Relevant to Health Maintenance Results * (ABNORMAL) CBC with auto differential (08/19/2024 7:02 AM CDT) WBC 4.0 3.8 - 10.8 Thousand/u L [facility] RBC, POC 4.07(L) 4.20 - 5.80 Million/uL [facility] Hgb 13.1(L) 13.2 - 17.1 g/dL [facility] Hct 39.7 38.5 - 50.0 % [facility] MCV 97.5 80.0 - 100.0 fL [facility] MCH 32.2 27.0 - 33.0 pg [facility] MCHC 33.0 32.0 - 36.0 g/dL [facility] Comment: For adults, a slight decrease in the calculated MCHC value (in the range of 30 to 32 g/dL) is most likely not clinically significant; however, it should be interpreted with caution in correlation with other red cell parameters and the patient's clinical condition. Rdw 12.9 11.0 - 15.0 % [facility] Platelets 188 140 - 400 Thousand/u L [facility] MPV 9.8 7.5 - 12.5 fL [facility] Neutrophils, abs 1,960 1,500 - 7,800 cells/uL [facility] Lymphocytes, abs 1,272 850 - 3,900 cells/uL [facility] Monocyte abs 556 200 - 950 cells/uL [facility] Eosinophils, abs 152 15 - 500 cells/uL [facility] Basophils, abs 60 0 - 200 cells/uL [facility] Neutrophils 49 % [facility] Lymphocyte pct 31.8 % [facility] Monocytes 13.9 % [facility] Eosinophils 3.8 % [facility] Basophils 1.5 % [facility] Blood 08/19/2024 7:02 AM CDT 08/19/2024 7:02 AM CDT us Jef PUTNAM LAB BLOOD ORDERABLES Fi nal Result [facility] [address] [address] * SCAN - RADIOLOGY/IMAGING (07/31/2024 11:48 AM CDT) Anatomical Region Laterality Modality Other Jef PUTNAM Final R esult * (ABNORMAL) CBC with auto differential (07/09/2024 9:07 AM CDT) [facility] WBC 2.9(L) 3.8 - 10.8 Thousand/u L [facility] RBC, POC 4.27 4.20 - 5.80 Million/uL [facility] Hgb 13.7 13.2 - 17.1 g/dL [facility] Hct 41.2 38.5 - 50.0 % [facility] MCV 96.5 80.0 - 100.0 fL [facility] MCH 32.1 27.0 - 33.0 pg [facility] MCHC 33.3 32.0 - 36.0 g/dL [facility] Comment: For adults, a slight decrease in the calculated MCHC value (in the range of 30 to 32 g/dL) is most likely not clinically significant; however, it should be interpreted with caution in correlation with other red cell parameters and the patient's clinical condition. Rdw 13.4 11.0 - 15.0 % [facility] Platelets 226 140 - 400 Thousand/u L [facility] MPV 10.2 7.5 - 12.5 fL [facility] Neutrophils, abs 1,691 1,500 - 7,800 cells/uL [facility] Lymphocytes, abs 650(L) 850 - 3,900 cells/uL [facility] Monocyte abs 470 200 - 950 cells/uL [facility] Eosinophils, abs 49 15 - 500 cells/uL [facility] Basophils, abs 41 0 - 200 cells/uL [facility] Neutrophils 58.3 % [facility] Lymphocyte pct 22.4 % [facility] Monocytes 16.2 % [facility] Eosinophils 1.7 % [facility] Basophils 1.4 % [facility] Blood 07/09/2024 9:07 AM CDT 07/09/2024 9:07 AM CDT us Jef PUTNAM LAB BLOOD ORDERABLES Fi nal Result [facility] [address] [place] [address] * Erythrocyte sedimentation rate (07/09/2024 9:07 AM CDT) Erythrocyte sedimentation rate 2 < OR = 20 mm/h [facility] Blood 07/09/2024 9:07 AM CDT 07/09/2024 9:07 AM CDT us Jef PUTNAM LAB BLOOD ORDERABLES Fi nal Result Performing Organization Address [facility] Co de Phone Number [facility] [address] [place] [address] * CRP (acute phase) (07/09/2024 9:07 AM CDT) C-RP <3.0 <8.0 mg/L [facility] Blood 07/09/2024 9:07 AM CDT 07/09/2024 9:07 AM CDT Jef PUTNAM LAB BLOOD ORDERABLES Fi nal Result Performing Organization Address [facility] de Phone Number [facility] [address] [place] [address] * Lipase (07/09/2024 9:07 AM CDT) LIPASE 33 7 - 60 U/L [facility] 07/09/2024 9:07 AM CDT 07/09/2024 9:07 AM CDT Jef PUTNAM LAB BLOOD ORDERABLES Fi nal Result Performing Organization Address [facility] de Phone Number [facility] [address] [place] [address] * Amylase (07/09/2024 9:07 AM CDT) Amylase 38 21 - 101 U/L [facility] 07/09/2024 9:07 AM CDT 07/09/2024 9:07 AM CDT us Jef PUTNAM LAB BLOOD ORDERABLES Fi nal Result JEANETH [facility] [address] [address] * (ABNORMAL) Comprehensive metabolic panel (07/09/2024 9:07 AM CDT) Pathologist [facility] Glucose 94 65 - 99 mg/dL [facility] Comment: Fasting reference interval BUN 11 7 - 25 mg/dL [facility] Creatinine 0.89 0.70 - 1.28 mg/dL [facility] eGFR 92 > OR = 60 mL/min/1.7 3m2 [facility] BUN/creat ratio SEE NOTE: 6 - 22 (calc) [facility] Comment: Not Reported: BUN and Creatinine are within reference range. Sodium 131(L) 135 - 146 mmol/L [facility] Potassium, pl 4.1 3.5 - 5.3 mmol/L [facility] Chloride 95(L) 98 - 110 mmol/L [facility] CO2 27 20 - 32 mmol/L [facility] Calcium 9.1 8.6 - 10.3 mg/dL [facility] Protein, sr 6.9 6.1 - 8.1 g/dL [facility] Albumin 4.8 3.6 - 5.1 g/dL [facility] GLOBULIN 2.1 1.9 - 3.7 g/dL (calc) [facility] Alb/glob ratio 2.3 1.0 - 2.5 (calc) [facility] Bilirubin, total 0.6 0.2 - 1.2 mg/dL [facility] Alk phos 76 35 - 144 U/L [facility] AST 28 10 - 35 U/L [facility] ALT (SGPT) 17 9 - 46 U/L [facility] Blood 07/09/2024 9:07 AM CDT 07/09/2024 9:07 AM CDT Jef PUTNAM LAB BLOOD ORDERABLES Fi nal Result [facility] [address] [address] * COLONOSCOPY (06/17/2019 3:21 PM CDT) Anatomical Region Laterality Modality Other Narrative Procedure Note Pepe Castorena MD - 06/17/2019 3:21 PM CDT [facility] Patient Name: Tyler Ferrara Procedure Date: 06/17/2019 3:21 PM Date of : 1955 Admit Type: Outpatient Age: 64 Gender: Male Attending MD: Pepe Castorena M.D. Room: [facility] ENDOSCOPY ROOM 3 Note Status: Finalized Procedure: Colonoscopy Indications: Generalized abdominal pain, r/o colon stricture Referring MD: Kale Rose MD Providers: Pepe Castorena M.D. Medicines: Monitored Anesthesia Care Complications: No immediate complications. Estimated Blood Loss: Estimated blood loss: none. Procedure: Pre-Anesthesia Assessment: - Immediately prior to administration ofmedications, the patient was re-assessed for adequacy to receive sedatives. - The risks and benefits of the procedure and the sedation options and risks were discussed with the patient. All questions were answered and informed consent was obtained. The benefits, risks and alternatives of theprocedure and sedation were discussed and informed consent was obtained. All questions were answered. Please referto the signed informed consent document in the medical record. The scope was passed under direct vision.The PCF [id number] endoscope was introduced throughthe anus with the intention of advancing to the cecum.The scope was advanced to the transverse colon beforethe procedure was aborted. Medications were given. The colonoscopy was performed without difficulty. The patient tolerated the procedure well. The quality of the bowel preparation was evaluated using the BBPS ([place] Bowel Preparation Scale) with scores of:Right Colon = NA (segment surgically absent or not seendue to reasons unrelated to bowel prep (i.e. technical difficulties or patient intolerance)), TransverseColon = 2 (minor amount of residual staining, smallfragments of stool and/or opaque liquid, but mucosa seen well) and Left Colon = 2 (minor amount of residualstaining, small fragments of stool and/or opaque liquid, but mucosa seen well). The total BBPS score equals 4.The bowel preparation used was SUPREP. Bowel prep was administered using a split dose. The quality of the bowel preparation was fair. Findings: The perianal and digital rectal examinations were normal. A benign-appearing, intrinsic moderate stenosis was found in the transverse colon. Biopsies were taken with a cold forceps forhistology. This was dilated to 15mm and advanced past. Additional strictureswere noted in proximal colon- unable to pass. 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 Biopsied. Recommendation: - Await pathology results. Obtain MRE, will need segmental resection. Pepe Castorena MD Pepe Castorena M.D. 06/17/2019 4:05:01 PM . Number of Addenda: 0 Note Initiated On: 06/17/2019 3:21 PM Recognized by the [place] [employer] for promoting quality in endoscopy Pepe Castorena MD ENDOSCOPY PROCEDURES Fi nal Result * PSA screen (05/03/2015 8:31 AM CDT) PSA 0.9 < OR = 4.0 ng/mL [facility]ORICAL RESULTS Comment: This test was performed using the Siemens chemiluminescent method. Values obtained from different assay methods cannot be used interchangeably. PSA levels, regardless of value, should not be interpreted as absolute evidence of the presence or absence of disease. Test performed at [facility] [address] [place] [address] Director: SULTANA HARVEY DO,MPH 05/03/2015 8:31 AM CDT Billy Khan MD LAB BLOOD ORDERABLES Final Resul t [facility] HISTORICAL RESULTS from Last 3 Months or Most Recently Relevant to Health Maintenance Additional Health Concerns Infection Onset Date Last Indicated COVID19 Comment:01/17/2020 03/15/2020 03/14/2020 Insurance AETNA [facility] GOLD REF AETNA MEDICARE GOLD AETNA MEDICARE GOLD [facility] AETNA MEDICARE GOLD Advance Directives For more information, please contact: [phone] * Full Code (Latest Code Status on File) Date Activated Date Inactivated Comments 10/10/2019 7:56 AM 10/10/2019 12:34 PM * Full Code Date Activated Date Inactivated Comments 10/03/2019 7:12 AM 10/03/2019 1:17 PM * Full Code Date Activated Date Inactivated Comments 09/25/2019 7:06 AM 09/25/2019 1:14 PM * Full Code Date Activated Date Inactivated Comments 09/15/2019 7:14 AM 09/15/2019 1:11 PM * Full Code Date Activated Date Inactivated Comments 09/11/2019 7:12 AM 09/11/2019 1:25 PM Care Teams Hospice Care Consultant Relationship Specialty Start Date End Date Rafy Camilo DO [address] [place] [address] PCP - General Internal Medicine 03/27/24 Kale Rose MD [address] [place] [address] 02/18/20 Eliseo Nazario MD [address] [place] [address] Rheumatology 01/04/17 Apolonia Schmitz, RN Registered Nurse 11/18/18 Ezekiel Key MD Referring Physician Gastroenterology 04/28/19 Zoe Zavala MD [address] [facility] [phone] [place] [address] Anesthesiologist Pain Management 10/13/20 Mery Lechuga OD [address] [place] [address] Optometry 10/19/21 Navneet Rodriguez MD [address] [place] [address] Referring Physician Hematology 12/20/21
--- OUTSIDE RECORDS SUMMARY | 2024-09-22 17:21 | XMS_ITS | Encounter Summary ---
Author Organization Formerly [facility] Address [address] [place] [address] Care Team Providers Care Financial Center Manager Name Role Phone Kale Rose MD Primary Care Provider [phone] Kale Rose MD Primary Care Provider + [phone] Kale Rose MD Unavailable [phone] Elisoe Nazario MD Unavailable [phone] Apolonia Schmitz RN Unavailable Unavailab Ezekiel Mckinney MD Unavailable [phone] Zoe Zavala MD Unavailable [phone] Mery Lechuga OD Unavailable [phone] Navneet Rodriguez MD Unavailable [phone] Rafy Camilo DO Primary Care Provider [phone] Encounter Details Date Type Department Care Team (Late st Contact Info) Description 11/18/[address] 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 Gender Identity Male 01/14/2020 12:17 PM RADIO ADJUSTER Sexual Orientation Straight 05/31/2019 8: 40 AM [...] documented as of this encounter Care Teams Financial Center Manager Relationship Specialty Start Date End Date Kale Rose MD [address] [facility] [address] [place] [address] PCP - General 05/05/16 02/17/20 Kale Rose MD [address] [place] [address] PCP - General 02/18/20 03/26/24 Rafy Camilo DO [address] [place] [address] PCP - General Internal Medicine 03/27/24 Kale Rose MD [address] [place] [address] 02/18/20 Eliseo Nazario MD [address] [place] [address] Rheumatology 01/04/17 Apolonia Schmitz RN Registered Nurse 11/18/18 Ezekiel Key MD Referring Physician Gastroenterology 04/28/19 Zoe Zavala MD [address] [facility] [id number] [place] [address] Anesthesiologist Pain Management 10/13/20 Mery Lechuga OD [address] [place] [address] Optometry 10/19/21 Navneet Rodriguez MD [address] [facility] [address] [place] [address] Referring Physician Hematology 12/20/21 documented as of this encounter
[2024-09-22 17:32] VITALS: BP 152/80; PULSE 73; RESP 18; TEMP 36.3; O2SAT 99
--- NOTE | 2024-09-22 18:12 | ED_ITS ---
HPI - Skin/Abscess/Foreign Bdy General Chief complaint: Skin/Abscess/Foreign Body Stated complaint: poison marleni Time Seen by Provider: 09/22/24 18:05 Source: patient and RN notes reviewed Mode of arrival: ambulatory Limitations: no limitations History of Present Illness HPI narrative: Patient presents today complaining of pruritic rash x1 week after helping children pull weeds in the yard 9 days ago. Believes he has poison marleni. He has been using calamine lotion with very mild improvement. Patient has rheumatoid arthritis for which he takes Plaquenil, methotrexate, and sulfasalazine. Related Data Home Medications ?Medication ?Instructions ?Recorded ?Confirmed ?Last Taken ?Type hydroxychloroquine 200 mg tablet 200 mg PO BID 01/01/19 09/08/24 09/22/20 06:00 History methotrexate sodium 2.5 mg tablet 15 mg PO WEEKLY 01/01/19 09/08/24 09/19/20 17:00 History multivitamin (Daily Multi-Vitamin 1 tablet PO DAILY 01/01/19 09/08/24 09/22/20 06:00 History tablet) folic acid 1 mg tablet 1 mg PO DAILY 05/27/19 09/08/24 09/22/20 06:00 History sulfasalazine 500 mg 1,000 mg PO BID 05/27/19 09/08/24 09/22/20 06:00 History tablet,delayed release acetaminophen 500 mg tablet 1,000 mg PO Q6H PRN Pain 06/27/23 09/08/24 Unknown History (Tylenol Extra Strength) ferrous sulfate 325 mg (65 mg 325 mg PO DAILY 06/27/23 09/08/24 Unknown History iron) tablet (Iron (ferrous sulfate)) finasteride 5 mg tablet 5 mg PO DAILY 06/27/23 09/08/24 Unknown History loratadine 10 mg tablet 10 mg PO DAILY PRN Sinus Symptoms 06/27/23 09/08/24 Unknown History nortriptyline 25 mg capsule 25 mg PO HS 06/27/23 09/08/24 Unknown History omeprazole 20 mg capsule,delayed 20 mg PO QPM 07/05/23 09/08/24 Unknown History release tamsulosin 0.4 mg capsule 0.4 mg PO QAM 07/05/23 09/08/24 Unknown History hydrocodone 5 mg-acetaminophen 325 tablet PO 12/05/23 09/08/24 Unknown History mg tablet gabapentin 400 mg capsule 600 mg PO HS 08/12/24 09/08/24 Unknown History trazodone 50 mg tablet 150 mg PO HS 08/12/24 09/08/24 Unknown History Allergies Allergy/AdvReac Type Severity Reaction Status Date / Time No Known Allergies Allergy Verified 09/22/24 17:37 [facility] Past Medical History Medical History Arthritis Anxiety Chronic back pain Dyslipidemia Chronic hyponatremia Basal cell carcinoma Hypothyroidism Chronic anemia With history of blood transfusion. Degenerative disc disease Moderate obstructive sleep apnea Noted on sleep study in July 2013, however the patient denies having sleep apnea. Benign prostatic hyperplasia Hypertension GERD (gastroesophageal reflux disease) With history of esophageal webs and reflux esophagitis noted on EGD October [address] Key. Chronic rhinosinusitis Shingles (~2012) Peripheral neuropathy Mainly affecting the feet. 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 Rheumatoid arthritis On methotrexate. Depression Surgical History Surgical History Hx of colonoscopy May 2019 H/O inguinal hernia repair robotic assisted repair incarcerated left inguinal hernia on 07/13/23 History of sinus surgery History of partial colectomy Partial right colectomy secondary to stricture. History of inguinal herniorrhaphy Indirect inguinal hernia repair with mesh in December [address] Raymundo. History of arthroscopy of both shoulders History of surgical removal of ganglion cyst History of tonsillectomy History of left knee replacement History of spinal fusion L3-L5 x2 T10-S1 History of right knee joint replacement Ox word right partial medial compartment replacement in August [address] Oneil herer. History of rotator cuff surgery Right History of carpal tunnel release Right. Family History Family History Sibling Family history of drug dependence Patient's sister is in good health Father Hypertension Cerebrovascular accident Depression Grandparent Carcinoma of colon Mother Family history of malignant neoplasm of esophagus Esophageal cancer Other Family history of arthritis Social History Social History Social History: The patient lives in [facility] with his . 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 He is a lifelong nonsmoker. No alcohol or drug abuse. His , Ksenia, is his surrogate decision maker and he wishes to be a full code. Smoking status: Never smoker Second hand tobacco smoke exposure: Yes Alcohol intake: current Alcohol use details: socially Substance use: never Substance use type: does not use Do You Feel Safe in your Home?: Yes Lack of Transportation: No Lack of Food: Never True Current Housing: I Have Housing Concerned About Future Housing: No Difficulty Paying Gas/Electric Bills: No Difficulty Paying for Meds: No Currently Unemployed: No Education: Bachelor's Degree Difficulty w/ Childcare or Family Care: No Living arrangements: with family Additional living arrangements comments: SPOUSE Occupation/Education: retired Additional occupation/education comments: [employer] Gender identity (if verbalized by the patient): Male Spiritual care concerns: No Comments At time of signature, I have reviewed and agree with nursing past medical, surgical, social and family history unless otherwise noted. Please see nursing chart for further information. There is no relevant family history pertinent to the presenting complaint Exam Narrative: GENERAL: Well-appearing, well-nourished, and in no acute distress. HEAD: Normocephalic, atraumatic. EYES: EOMI. No redness or drainage. Conjunctivae normal. ENT: Mucous membranes pink and moist. NECK: Normal AROM. CHEST: No respiratory distress. EXTREMITIES: Normal range of motion. No edema. SKIN: Warm, dry. Capillary refill normal. Normal skin turgor. Large patches of erythematous maculopapular rash with some scattered vesicles to the bilateral lower legs, anterior waistline, bilateral forearms. Patient has a large patch to the right inner calf that has some honey crusting and worse erythema. NEURO: No focal deficits. Alert and oriented x3. Gait steady. PSYCH: Normal affect. No signs of depression or anxiety. Course Course Level of Care: Express Care Visit Vital Signs Vital signs: Vital Signs Temperature 97.4 F L 09/22/24 17:32 Pulse Rate 73 09/22/24 17:32 Respiratory Rate 18 09/22/24 17:32 Blood Pressure 152/80 H 09/22/24 17:32 Pulse Oximetry 99 09/22/24 17:32 Oxygen Delivery Room Air 09/22/24 17:32 Temperature 97.4 F L 09/22/24 17:32 Pulse Rate 73 09/22/24 17:32 Respiratory Rate 18 09/22/24 17:32 Blood Pressure 152/80 H 09/22/24 17:32 Pulse Oximetry 99 09/22/24 17:32 Oxygen Delivery Room Air 09/22/24 17:32 Reviewed MDM - Skin/Abscess/Foreign Bdy MDM Narrative Medical decision making narrative: 69-year-old male with history of rheumatoid arthritis presents today with a pruritic rash x1 week after pulling weeds 9 days ago. He has been using calamine lotion without much improvement. Upon exam, patient has erythematous maculopapular rash with few vesicles to all 4 extremities and waist line with a large area of honey crusting to the right calf, consistent with impetigo. He will be treated with a tapering dose of prednisone for the contact dermatitis, likely poison marleni, and cephalexin for the impetigo. Patient agrees with plan. Vital signs stable. Anticipatory guidance given. Differential Diagnosis Differential diagnosis: Likely cellulitis, impetigo and contact dermatitis Critical Care Time Critical Care Time Critical Care Time: No Discharge Plan Discharge Clinical Impression: Contact dermatitis due to poison marleni, Impetigo Patient Disposition: Home Condition: Stable Instructions: Antibiotic Form, Impetigo (DC), Contact Dermatitis (DC) Additional Instructions: Please take the prednisone and cephalexin as prescribed. Wash your rash once daily with soap and water. Try not to scratch. Follow-up with your PCP in 3 days if symptoms are not improving. Your blood pressure was elevated above 120/80 today at Urgent Care. This puts you above the threshold for follow up. Please schedule a followup visit with your personal physician as soon as possible, for further evaluation and treatment. Even blood pressure exceeding 120/80 may indicate pre-hypertension. Patient Language: Persian Prescriptions: New prednisone 10 mg tablet See Rx Instructions .ROUTE .COMPLEX Qty: 30 0RF Rx Instructions: 4 tabs daily x3 days,then 3 tabs daily x3 days,then 2 tabs daily x3 days, then 1 tab daily x3 days cephalexin 500 mg capsule 500 mg PO Q6H 7 Days Qty: 28 0RF No Action methotrexate sodium 2.5 mg tablet 15 mg PO WEEKLY Rx Instructions: 2.5 mg tabs (6 tabs) sundays hydroxychloroquine 200 mg tablet 200 mg PO BID multivitamin [Daily Multi-Vitamin] Tablet 1 tablet PO DAILY gabapentin 400 mg capsule 600 mg PO HS trazodone 50 mg tablet 150 mg PO HS hydrocodone-acetaminophen 5-325 mg tablet PO nortriptyline 25 mg capsule 25 mg PO HS acetaminophen [Tylenol Extra Strength] 500 mg tablet 1,000 mg PO Q6H PRN (Reason: Pain) loratadine 10 mg tablet 10 mg PO DAILY PRN (Reason: Sinus Symptoms) ferrous sulfate [Iron (ferrous sulfate)] 325 mg (65 mg iron) tablet 325 mg PO DAILY finasteride 5 mg tablet 5 mg PO DAILY tizanidine 4 mg capsule 4 mg PO QHS PRN (Reason: muscle spasticity) Qty: 30 4RF sulfasalazine 500 mg tablet,delayed release (DR/EC) 1,000 mg PO BID folic acid 1 mg tablet 1 mg PO DAILY omeprazole 20 mg Capsule,Delayed Release(Dr/Ec) 20 mg PO QPM tamsulosin 0.4 mg capsule 0.4 mg PO QAM docusate sodium [Colace] 100 mg capsule 100 mg PO BID Qty: 20 0RF gemfibrozil 600 mg tablet 600 mg PO BID Qty: 180 2RF ezetimibe [Zetia] 10 mg tablet 10 mg PO DAILY Qty: 90 3RF amiodarone 200 mg tablet See Rx Instructions .ROUTE .COMPLEX Qty: 90 1RF Dose Instruction: TAKE 1 TABLET BY MOUTH EVERY DAY Rx Instructions: TAKE 1 TABLET BY MOUTH EVERY DAY levothyroxine 75 mcg tablet See Rx Instructions .ROUTE .COMPLEX Qty: 90 3RF Dose Instruction: TAKE 1 TABLET BY MOUTH EVERY DAY IN THE MORNING Rx Instructions: TAKE 1 TABLET BY MOUTH EVERY DAY IN THE MORNING Follow-up/Referrals: Rafy Camilo DO [Primary Care Provider] - Time of Disposition: 18:23
== END 2024-09-22 18:27 | disposition home or self-care (01) ==
PROVIDERS: Emergency Provider Nurse Practitioner; PCP Internal Medicine
DX: L23.7 Allergic contact dermatitis due to plants, except food (principal); L01.00 Impetigo, unspecified; E78.5 Hyperlipidemia, unspecified; E03.9 Hypothyroidism, unspecified; N40.0 Benign prostatic hyperplasia without lower urinary tract symptoms; I10 Essential (primary) hypertension; K21.9 Gastro-esophageal reflux disease without esophagitis; G62.9 Polyneuropathy, unspecified; M06.9 Rheumatoid arthritis, unspecified; M19.90 Unspecified osteoarthritis, unspecified site; Z96.652 Presence of left artificial knee joint; F32.A Depression, unspecified; D64.9 Anemia, unspecified; Z85.828 Personal history of other malignant neoplasm of skin
CPT/HCPCS: 99213; G0463

== ENCOUNTER 2025-01-07 10:13 | Outpatient (CLI) | payer MEDICARE, SELFPAY ==
[2025-01-07 10:32] LABS: Hematocrit 36.1 % (42.0-52.0); Hemoglobin 12.1 g/dL (14.0-18.0); Immature Granulocyte Percent A 0.5 % (0-0.5); Lymphocytes Absolute Auto 0.81 K/mm3 (0.9-3.2); Mean Corpuscular HGB Conc 33.5 g/dl (32-36); Mean Corpuscular Hemoglobin 32.3 pg (26-34); Mean Corpuscular Volume 96.3 fl (80-100); Nucleated Red Blood Cells Absolute Auto 0.000 K/mm3 (0.0-0.012); Nucleated Red Blood Cells Perc 0.0 % (0.0-0.2); Platelet Count Result 211 k/mm3 (150-375); Red Blood Count 3.75 M/mm3 (4.6-6.20); White Blood Count 3.9 K/mm3 (4.5-10.0)
--- OUTSIDE RECORDS SUMMARY | 2025-01-07 11:27 | XMS_ITS | Encounter Summary ---
Author Organization [facility] Address [address] [place] [address] Care Team Providers Care Log Tumbler Name Role Phone Kale Rose MD Primary Care Provider + [phone] Kale Rose MD Unavailable [phone] Eliseo Nazario MD Unavailable [phone] Apolonia Schmitz RN Unavailable Unavailab Ezekiel Mckinney MD Unavailable [phone] Zoe Zavala MD Unavailable [phone] Mery Lechuga OD Unavailable [phone] Navneet Rodriguez MD Unavailable [phone] Rafy aCmilo DO Primary Care Provider [phone] Reason for Visit * Reason Onset Date Comments Pre-Surgical Call 12/02/2020 Encounter Details Date Type Department Care Team (Late st Contact Info) Description 12/02/2020 Telephone [facility] [address] [facility] [address] [place] [address] Zoe Zavala MD [address] [facility] [id number] [place] [address] Pre-Surgical Call Social History Tobacco Use Types [...] on file 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 [...] documented as of this encounter Care Teams Log Tumbler Relationship Specialty Start Date End Date Kale Rose MD [address] [facility] [address] [place] [id number] PCP - General 02/18/20 03/26/24 Rafy Camilo DO [address] [facility] [address] [place] [address] PCP - General Internal Medicine 03/27/24 Kale Rose MD [address] [place] [address] 02/18/20 Eliseo Nazario MD [address] [place] [address] Rheumatology 01/04/17 Apolonia Schmitz RN Registered Nurse 11/18/18 Ezekiel Key MD Referring Physician Gastroenterology 04/28/19 Zoe Zavala MD [address] [facility] [address] [facility] [phone] [place] [address] Anesthesiologist Pain Management 10/13/20 Mery Lechuga OD [address] [place] [address] Optometry 10/19/21 Navneet Rodriguez MD [address] [place] [address] Referring Physician Hematology 12/20/21 documented as of this encounter
--- OUTSIDE RECORDS SUMMARY | 2025-01-07 11:27 | XMS_ITS | Encounter Summary ---
Author Organization [facility] Address [address] [place] [address] Care Team Providers Care Tank Systems Maintainer Name Role Phone Kale Rose DO Primary Care Provider [phone] Encounter Details Date Type Department Care Team (Late st Contact Info) Description 08/10/2022 Lab Requisition [facility] Derm[facility] Lab [address] [facility] [place] [id number] Akanksha Sandoval PA-C [address] [place] [address] Neoplasm of uncertain behavior of skin Social History Tobacco Use Types Packs/Day Years Used Date Smoking Tobacco: Never Assessed Sex and Gender Information Value Date Recorded Sex Assigned at Not on file Legal Sex Male 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 Vaughn Harley. These tests need not be, and therefore are not, approved by the [place] Food and Drug Administration. The tests are used for clinical purposes. Billing Codes Specimen Charges Stain Charges 34912 1 11:24 AM CDT DERMATOPATHOLOGY LABORATORY Embedded Images 11:24 AM CDT DERMATOPATHOLOGY LABORATORY Pathology/Cytolog y TISSUE SPECIMEN FROM SKIN / Unknown 08/10/2022 08/11/2022 1:36 PM CDT Akanksha Sandoval PA-C LAB - PATHOLOGY/CYTOLOGY MATTE TRACEY Final Result DERMATOPATHOLOGY LABORATORY [facility] - Department of Dermatology [address] [place], [place] [address] [place] [address] documented in this encounter Visit Diagnoses Diagnosis Neoplasm of uncertain behavior of skin documented in this encounter Care Teams Tank Systems Maintainer Relationship Specialty Start Date End Date Kale Rose DO [address] [facility] [address] [place] [address] PCP - General Internal Medicine 01/11/15 documented as of this encounter
--- OUTSIDE RECORDS SUMMARY | 2025-01-07 11:27 | XMS_ITS | Clinical Summary ---
Author Organization [facility] Address [address] [place] [address] Care Team Providers Care Production Clerk Name Role Phone Kale Rose DO Primary Care Provider [phone] Source Comments [facility],non-owned Affiliates and Associated Physician Practices is amultiple site organization consisting of ambulatory clinics and hospital sitesin [place], [place], [place] and [place]. This disclosure is being madepursuant to the Care Everywhere program and may not contain all information available regarding this patient. Last updated 17.[facility] Immunizations Immunization Administration Dates Next Due Influenza Pf Intradermal (ADULT) 10/23/2015 Social History Tobacco Use Types Packs/Day Years Used Date Smoking Tobacco: Never Assessed Sex and Gender Information Value Date Recorded Sex Assigned at Not on file Legal Sex Male 10:14 AM STUDENT DEAN Gender Identity Not on file Sexual Orientation [...] 01/04/2004 ZOSTER VACCINE (1 of 2) 01/04/2004 DEPRESSION SCREENING 02/06/2024 MEDICARE AWV CALENDAR YEAR 2024 COVID-19 VACCINE (2024-2 6 season) 2024 INFLUENZA VACCINE (#1) 2024 10/23/2015 Respiratory [...] on patient's age to complete this topic Insurance AETNA AETNA AETNA AETNA MEDICARE [facility] T AETNA AETNA AETNA AETNA AETNA AETNA AETNA Care Teams Production Clerk Relationship Specialty Start Date End Date Kale Rose DO [address] [facility] [address] [place] [address] PCP - General Internal Medicine 01/11/15
--- OUTSIDE RECORDS SUMMARY | 2025-01-07 11:27 | XMS_ITS | Encounter Summary ---
Author Organization [facility] Address [address] [facility] [place] [address] Care Team Providers Care Chlorine Cells Operator Name Role Phone Kale Rose DO Primary Care Provider Encounter Details Date Type Department Care Team (Late st Contact Info) Description 02/12/2023 Lab Requisition [facility] [address] [facility] [place] [phone] Jovany Vaughn MD [facility] DER[facility] [address] [place] [phone] Neoplasm of uncertain behavior of skin Social History Tobacco Use Types Packs/Day Years Used Date Smoking Tobacco: Never Assessed Sex and Gender Information Value Date Recorded Sex Assigned at Not on file Legal Sex Male 10:14 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 OPERATOR Gender Identity Not on file Sexual Orientation Not on file documented as of this encounter Plan of Treatment Not on file documented as of this encounter Procedures Procedure Name Priority Date/Time Associated Diagnosis Comments DERMATOPATHOLOGY Routine 02/12/2023 3:33 AM FILM PROJECTOR OPERATOR Neoplasm of uncertain behavior of skin documented in this encounter Results * DERMATOPATHOLOGY (02/12/2023 3:33 AM FILM PROJECTOR OPERATOR) Case Report Dermatopathology Report Case: [id number] Authorizing Provider: Jovany Vaughn MD Collected: 02/12/2023 03:33 AM Ordering Location: [facility] DermPath Lab Received: 02/13/2023 12:36 PM Pathologist: Duyen Quintana MD Specimen: Skin, left mid upper back 4:22 PM [facility] DERMATOPATHOLOGY LABORATORY Final Diagnosis Specimen A. 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 Benign Nevus vs. Blue Nevus vs. Melanoma 4:22 PM [facility] DERMATOPATHOLOGY LABORATORY Gross Description Specimen A: Received is one formalin filled container labeled with the patient's name and designated left mid upper back. The specimen consists of a shave biopsy measuring 7x5x1 mm. Jar 0. 4:22 PM [facility] DERMATOPATHOLOGY LABORATORY Microscopic Description Specimen A. SKIN, left mid upper back: Within the dermis there are oval, spindle-shaped and dendritic melanocytes with melanophages. The melanocytes are positive for MART-1/Melan A stain but are negative for Factor 13A. 4:22 PM [facility] DERMATOPATHOLOGY LABORATORY Disclaimer An external and internal positive and negative controls are appropriate for the histochemical, immunohistochemical and immunofluorescence stain(s) in this case (if any), except where stated explicitly. The performance characteristics of the stain(s) cited in this report were developed and its performance characteristic determined by the Dermatopathology Laboratory at [facility], directed by Dr. Vaughn Harley. These tests need not be, and therefore are not, approved by the [place] Food and Drug Administration. The tests are used for clinical purposes. Billing Codes Specimen Charges Stain Charges 16021 1 16829 40804 1 1 4 4:22 PM [facility] DERMATOPATHOLOGY LABORATORY Embedded Images 4:22 PM [facility] DERMATOPATHOLOGY LABORATORY Pathology/Cytolo gy TISSUE SPECIMEN FROM SKIN / Unknown 02/12/2023 3:33 AM FILM PROJECTOR OPERATOR 02/13/2023 12:36 PM FILM PROJECTOR OPERATOR Jovany Vaughn MD LAB - PATHOLOGY/CYTOLOGY ORDE TRACEY Final Result DERMATOPATHOLOGY LABORATORY [facility] - Department of Dermat[facility] [address] [facility] [phone] documented in this encounter Visit Diagnoses Diagnosis Neoplasm of uncertain behavior of skin documented in this encounter Care Teams Chlorine Cells Operator Relationship Specialty Start Date End Date Kale Rose DO [address] [facility] [address] [place] [address] PCP - General Internal Medicine 01/11/15 documented as of this encounter
--- OUTSIDE RECORDS SUMMARY | 2025-01-07 11:28 | XMS_ITS ---
Author Organization [facility] Address [address] [place] [address] Care Team Providers Care Package Drier Name Role Phone Kale Rose MD Unavailable [phone] Eliseo Nazario MD Unavailable [phone] Apolonia Schmitz RN Unavailable Unavailab Ezekiel Mckinney MD Unavailable [phone] Zoe Zavala MD Unavailable [phone] Mery Lechuga OD Unavailable [phone] Navneet Rodriguez MD Unavailable [phone] Rafy Camilo DO Primary Care Provider [phone] Active Problems Problem Noted Date Diagnosed Date [...] 09/27/2023 Assessment & Plan (03/31/2024 10:26 AM COBBLER UPPER): Has had previous right rotator cuff repair. Is following with Orthopedics. Orthopedics has noted another rotator cuff tear and recommended reverse shoulder arthroplasty, which he defers at this time. Completed physical therapy without significant benefit. Continue to follow with Orthopedics. Assessment & Plan (12/28/2023 10:14 AM COBBLER UPPER): Has had previous right rotator cuff repair. [...] 03/23/2023 Assessment & Plan (03/23/2023 9:01 AM COBBLER UPPER): Since last visit, has noted increased left knee pain. Has had previous left TKA. Is in the process scheduling with a new orthopedic physician for evaluation. Defers an x-ray at this time. Angular cheilitis 09/11/2022 Assessment & Plan (09/11/2022 9:27 AM CDT): Following with derm. CMC arthritis 06/19/2022 Assessment & Plan (12/12/2022 9:06 AM COBBLER UPPER): Has chronic residual bilateral CMC discomfort (worse on the left). Has deferred OT for CMC bracing. Previously did discuss information on obtaining CMC brace through [employer]. Previous left CMC injection, did offered temporary benefit. Could consider repeat injection, if symptoms worsened. Assessment & Plan (09/11/2022 9:26 AM CDT): Has chronic residual bilateral CMC discomfort. Left CMC injection after last did offer some benefit. Has deferred OT for CMC bracing. Previously did discuss information on obtaining CMC brace through [employer]. Assessment & Plan (06/19/2022 8:58 AM CDT): A primary complaint today is persistent bilateral CMC discomfort, which is much more significant on the left. Continues to defer OT for CMC bracing. Discussed left ultrasound-guided CMC injection, which was amenable to. Discussed risks and benefits. We did also discuss information on obtaining CMC brace through [employer]. Neck pain 12/19/2021 Assessment & Plan (12/19/2021 9:02 AM COBBLER UPPER): Has previously been evaluated by Neurosurgery with recommendations for neck surgery, per his report, which she deferred. Neck pain has exacerbated since a recent fall off recumbent bike 2 weeks prior. Will obtain baseline imaging and sent to physical therapy. Acute pain of left shoulder 12/19/2021 Assessment & Plan (03/20/2022 2:09 PM COBBLER UPPER): Left shoulder pain developed after fall from [...] persist Assessment & Plan (12/19/2021 9:03 AM COBBLER UPPER): Left shoulder pain developed after recent fall [...] 12/19/2021 Assessment & Plan (12/19/2021 9:05 AM COBBLER UPPER): Has numbness and tingling in the ulnar [...] today. Assessment & Plan (02/08/2021 10:46 AM COBBLER UPPER): He notes compression fracture seen on recent [...] (07/07/2019): Added automatically from request for surgery [id number] Crohn's disease of both small and large intestin e 07/03/2019 Anemia, unspecified 06/25/2019 Assessment & Plan (12/19/2021 9:00 AM COBBLER UPPER): Has had prior blood transfusions. Follows with [...] time. Assessment & Plan (04/02/2018 11:39 AM COBBLER UPPER): As above, will obtain CXR. Advised to fu with PCP. Encounter for long-term (current) use of medicat ions 03/04/2018 Assessment & Plan (10/29/2024 8:53 AM CDT): Routine labs today. Continue routine eye exams. Assessment & Plan (07/09/2024 10:12 AM CDT): Routine labs today. Continue routine eye exams. Assessment & Plan (03/31/2024 10:26 AM COBBLER UPPER): Routine labs today. Continue routine eye exams. Assessment & Plan (12/28/2023 10:14 AM COBBLER UPPER): Routine labs today. Continue routine eye exams. [...] hydroxychloroquine Assessment & Plan (12/12/2022 9:06 AM COBBLER UPPER): Routine labs today. Continue routine eye exams. Assessment & Plan (09/11/2022 9:27 AM CDT): Routine labs today. Continue routine eye exams. Assessment & Plan (06/19/2022 8:57 AM CDT): Routine labs today. Continue routine eye exams. Assessment & Plan (03/20/2022 2:10 PM COBBLER UPPER): Routine labs today. Continue routine eye exams. Assessment & Plan (12/19/2021 9:00 AM COBBLER UPPER): Routine labs today. Continue routine eye exams. Assessment & Plan (10/19/2021 9:26 AM CDT): Routine labs today. Continue routine eye exams. Assessment & Plan (08/18/2021 9:01 AM CDT): Routine labs today. Continue routine eye exams. Assessment & Plan (02/08/2021 10:46 AM COBBLER UPPER): Routine labs today. Continue routine eye exams. Assessment & Plan (11/10/2020 10:13 AM CDT): Routine labs today. Continue routine eye exams. Assessment & Plan (08/10/2020 9:43 AM CDT): Routine labs today. Continue routine eye exams. Assessment & Plan (05/11/2020 9:13 AM CDT): Routine labs today. Continue routine eye exams. Assessment & Plan (02/13/2020 10:37 AM COBBLER UPPER): Routine labs today. Continue routine eye exams. [...] exams. Assessment & Plan (01/14/2019 10:29 AM COBBLER UPPER): Routine labs today. Continue routine eye exams. Assessment & Plan (10/15/2018 12:12 PM CDT): Routine labs today. Continue routine eye exams. Assessment & Plan (07/16/2018 9:52 AM CDT): Routine labs today. Continue routine eye exams. Assessment & Plan (03/04/2018 9:16 AM COBBLER UPPER): Routine labs today. Continue routine eye exams. Hyperlipemia 11/28/2017 Insomnia 11/28/2017 GERD (gastroesophageal reflux disease) 8 Urinary retention 11/28/2017 Constipation 11/28/2017 Pseudarthrosis following spinal fusion 8 Overview (10/01/2017): Added automatically from request for surgery [id number] Scoliosis 10/01/2017 Overview (10/01/2017): Added automatically from request for surgery [id number] Spinal stenosis, lumbar wilfredo on, with neurogenic claudication 10/01/2017 Overview (10/01/2017): Added automatically from request for surgery [id number] Chills without fever 09/10/2017 Assessment & Plan (04/02/2018 11:39 AM COBBLER UPPER): Continues to be a primary complaint for [...] tizanidine with mild benefit. Assessment & Plan (10/29/2024 8:53 AM CDT): Status post lumbar fusion on 11/28/2017. He continues to note some residual chronic lower back pain with intermittent radicular symptoms into the bilateral legs, as discussed above. He does follow with pain management with intermittent epidural steroid injections, which are beneficial. Defers physical therapy. Continue to follow with pain management. Assessment & Plan (05/12/2021 9:01 AM CDT): Status post lumbar fusion on 11/28/2017. Notes persistent lower back pain with L sided radicular symptoms. Continue to follow with Pain management for epidural injections, which have offered benefit. Followed up with orthopedic surgeon after last visit. He recommended surgical intervention, although Alvarado defers at this time. Assessment & Plan (02/08/2021 10:46 AM COBBLER UPPER): Status post lumbar fusion on 11/28/2017. Notes [...] benefit. Assessment & Plan (02/13/2020 10:37 AM COBBLER UPPER): Status post lumbar fusion on 11/28/2017. Continue [...] benefit. Assessment & Plan (01/14/2019 10:29 AM COBBLER UPPER): Status post lumbar fusion on 11/28/2017. Continues [...] surgery. Assessment & Plan (04/02/2018 11:36 AM COBBLER UPPER): S/p lumbar fusion on 11/28/2017. Continue to follow with PM and spinal surgery. Assessment & Plan (03/04/2018 9:15 AM COBBLER UPPER): S/p fusion on 11/28/2017 with persistent back pain and radicular symptoms down the R leg. Is scheduled to see surgeon next week. Assessment & Plan (2018 11:13 AM COBBLER UPPER): Patient is S/p S1-T10 fusion on 11/28/2017. [...] week. Assessment & Plan (02/12/2017 12:37 PM COBBLER UPPER): Still with ongoing low back pain which he is s/p 2 L-spine surgieries with no benefit. Follows with ortho spine. On lyrica and tizanidone with mild benefit. Assessment & Plan (01/04/2017 9:59 AM COBBLER UPPER): Had a failed L-spine fusion last year [...] (04/14/16). Vectra 42 (05/14/17) Assessment & Plan (10/29/2024 8:53 AM CDT): CDAI 8. Overall, joint symptoms have remained stable from last visit with some residual stiffness/discomfort throughout the joints of the hands, as discussed above. Few tender and swollen joints, as above. He has continued to defer escalating treatment given concerns for immunosuppression given previous prostatitis with 1st and Simponi Aria infusion. Have discussed Orencia is a potential option for him given rheumatoid factor/CCP positivity a lower infection risks with Orencia. He defers at this time comes he just feel that symptoms are manageable. Likely most appropriate given low CDAI today. At present, will continue hydroxychloroquine 200 mg b.i.d., sulfasalazine 1000 mg b.i.d., and methotrexate 20 mg p.o. weekly with FA 1 mg daily. Routine labs today. Continue routine eye exams. Follow-up 3 months. Sooner if needed. Assessment & Plan (07/09/2024 10:12 AM CDT): [...] needed. Assessment & Plan (03/31/2024 10:27 AM COBBLER UPPER): CDAI 12. Alvarado does continue note chronic [...] needed. Assessment & Plan (12/28/2023 10:15 AM COBBLER UPPER): CDAI 14. Alvarado does continue to have [...] needed. Assessment & Plan (03/23/2023 8:59 AM COBBLER UPPER): CDAI 15. Alvarado remains a moderate disease [...] exams. Assessment & Plan (12/12/2022 9:05 AM COBBLER UPPER): CDAI 11. Alvarado remains a moderate disease [...] needed. Assessment & Plan (03/20/2022 2:09 PM COBBLER UPPER): Cdai 15. Overall, joints have remained stable [...] needed. Assessment & Plan (12/19/2021 9:00 AM COBBLER UPPER): CDAI 16. Since last visit, has increase [...] needed. Assessment & Plan (02/08/2021 10:45 AM COBBLER UPPER): CDAI 23. Continues to have persistent joint [...] the bilateral hands with persistent reduction in sample maker strength. Synovitis does persist on exam. Does [...] exams. Assessment & Plan (02/13/2020 10:35 AM COBBLER UPPER): CDAI 10. Overall, notes that joints remained fairly stable since last visit. Does continue to note some generalized stiffness the morning for 15-30 minutes with some reduced sample maker strength, discomfort in the hands. Does continue [...] with generalized stiffness in the morning. Reduced sample maker strength. Synovitis does persist on exam. Given [...] exams. Assessment & Plan (01/14/2019 10:30 AM COBBLER UPPER): CDAI 6. Continues to note swelling and [...] exams. Assessment & Plan (04/02/2018 11:33 AM COBBLER UPPER): Moderate CDAI. Patient continues to note generalized [...] Nazario. Assessment & Plan (03/04/2018 9:12 AM COBBLER UPPER): Moderate CDAI. Patient has noted increased pain [...] below. Assessment & Plan (2018 11:11 AM COBBLER UPPER): Moderate CDAI. Continues to have pain and [...] months. Assessment & Plan (02/12/2017 9:02 AM COBBLER UPPER): Remains stable on current regimen. Has occasional [...] months. Assessment & Plan (01/04/2017 9:56 AM COBBLER UPPER): Still with some stiffness in hands and [...] prior. Assessment & Plan (04/02/2018 11:35 AM COBBLER UPPER): Continues to have some amandeep 1st mtp joint pain (L>R). 50% improvement in L 1st mtp joint with US guided steroid injection after last visit. L CMC joint painful at times as well. Rediscussed PT for bracing, although patient again defers. No benefit with Pennsaid. In need of L TKA. Will be considering in the near future. Assessment & Plan (03/04/2018 9:14 AM COBBLER UPPER): Major complaint today is bilateral 1st MTP [...] replacement. Assessment & Plan (2018 11:12 AM COBBLER UPPER): Patient is in need of a left [...] issue. Assessment & Plan (02/12/2017 9:03 AM COBBLER UPPER): Has increased pain in left knee and is scheduled to have L TKR in april. Pt to hold MTX 2 weeks before and 2 weeks after surgery. Assessment & Plan (01/04/2017 10:00 AM COBBLER UPPER): Symptoms worse in knees L>R. Pt reports [...] Automatic Entry Manual Entr y Fluoro Time 20.832 minutes 20.832 minutes 0 minutes Air kerma at the reference point (Ka,r) 186.39 mGy 1 86.39 mGy 0 mGy DLP 6,918 mGycm 6,918 mGycm 0 mGycm Resolved Problems Problem Noted Date Diagnosed Date Resolved Date Thoracic spondylosis 06/27/2021 022
--- OUTSIDE RECORDS SUMMARY | 2025-01-07 11:28 | XMS_ITS | Clinical Summary ---
Author Organization [facility] Address [address] [place] [address] Care Team Providers Care Crane Service Technician Name Role Phone Kale Rose MD Unavailable [phone] Eliseo Nazario MD Unavailable [phone] Apolonia Schmitz RN Unavailable Unavailab Ezekiel Mckinney MD Unavailable [phone] Zoe Zavala MD Unavailable [phone] Mery Lechuga OD Unavailable [phone] Navneet Rodriguez MD Unavailable [phone] Rafy Camilo DO Primary Care Provider Allergies No known active allergies Medications gemfibrozil (LOPID) 600 mg tablet take 1 tablet by oral route 2 times every day 30 minutes before morning and evening meal 0 0 01/12/20 15 Active Additional Information Patient taking differently:600 mgoral 2 times daily, Reported on 12/01/2024 senna-docusate (PERICOLACE) 8.6-50 mgIndications:c onstipation Take 2 tablets by mouth 2 (two) times a day. 90 tablet 12/05/19 18 Active Additional Information Patient taking differently: 1 tabletoral 2 times daily, Indications: constipation, Reported on 12/01/2024 ezetimibe (ZETIA) 10 mg tabletIndicatio ns:hyperlipidem ia [...] EVERY DAY AT BEDTIME 09/05/19 24 Active traZODone (DESYREL) 150 mg tablet TAKE 1 TABLET BY MOUTH EVERY DAY AT NIGHT 90 tablet 3 11/28/19 24 Active amiodarone (PACERONE) 200 mg tablet 12/27/19 24 Active imipramine (TOFRANIL) 50 mg tablet TAKE [...] TAKE 2 CAPS AT BEDTIME 180 tablet 2 10/29/19 25 Active sulfaSALAzine (AZULFIDINE) 500 mg tablet TAKE 2 TABLETS BY MOUTH TWICE A DAY 360 tablet 11/29/19 25 Active hydroxychloroqu ine (PLAQUENIL) 200 mg tablet TAKE 1 TABLET BY MOUTH TWICE A DAY 180 tablet 12/02/19 25 Active HYDROcodone-iam taminophen (NORCO) 5-325 mg per tabletIndicatio ns:Pain Take 1 tablet by mouth every 6 (six) hours as needed for pain 20 tablet 12/02/19 25 Active folic acid (FOLVITE) 1 mg tablet TAKE 1 TABLET BY MOUTH EVERY DAY 90 tablet 1 12/16/19 25 Active folic acid (FOLVITE) 1 mg tablet TAKE 1 TABLET BY MOUTH EVERY DAY 90 tablet 1 07/02/19 25 025 Discontinued Active Problems Problem Noted [...] 09/27/2023 Assessment & Plan (03/31/2024 10:26 AM GEROPSYCHOLOGIST): Has had previous right rotator cuff repair. Is following with Orthopedics. Orthopedics has noted another rotator cuff tear and recommended reverse shoulder arthroplasty, which he defers at this time. Completed physical therapy without significant benefit. Continue to follow with Orthopedics. Assessment & Plan (12/28/2023 10:14 AM GEROPSYCHOLOGIST): Has had previous right rotator cuff repair. [...] 03/23/2023 Assessment & Plan (03/23/2023 9:01 AM GEROPSYCHOLOGIST): Since last visit, has noted increased left knee pain. Has had previous left TKA. Is in the process scheduling with a new orthopedic physician for evaluation. Defers an x-ray at this time. Angular cheilitis 09/11/2022 Assessment & Plan (09/11/2022 9:27 AM CDT): Following with derm. CMC arthritis 06/19/2022 Assessment & Plan (12/12/2022 9:06 AM GEROPSYCHOLOGIST): Has chronic residual bilateral CMC discomfort (worse on the left). Has deferred OT for CMC bracing. Previously did discuss information on obtaining CMC brace through [employer]. Previous left CMC injection, did offered temporary benefit. Could consider repeat injection, if symptoms worsened. Assessment & Plan (09/11/2022 9:26 AM CDT): Has chronic residual bilateral CMC discomfort. Left CMC injection after last did offer some benefit. Has deferred OT for CMC bracing. Previously did discuss information on obtaining CMC brace through [employer]. Assessment & Plan (06/19/2022 8:58 AM CDT): A primary complaint today is persistent bilateral CMC discomfort, which is much more significant on the left. Continues to defer OT for CMC bracing. Discussed left ultrasound-guided CMC injection, which was amenable to. Discussed risks and benefits. We did also discuss information on obtaining CMC brace through [employer]. Neck pain 12/19/2021 Assessment & Plan (12/19/2021 9:02 AM GEROPSYCHOLOGIST): Has previously been evaluated by Neurosurgery with recommendations for neck surgery, per his report, which she deferred. Neck pain has exacerbated since a recent fall off recumbent bike 2 weeks prior. Will obtain baseline imaging and sent to physical therapy. Acute pain of left shoulder 12/19/2021 Assessment & Plan (03/20/2022 2:09 PM GEROPSYCHOLOGIST): Left shoulder pain developed after fall from [...] persist Assessment & Plan (12/19/2021 9:03 AM GEROPSYCHOLOGIST): Left shoulder pain developed after recent fall [...] 12/19/2021 Assessment & Plan (12/19/2021 9:05 AM GEROPSYCHOLOGIST): Has numbness and tingling in the ulnar [...] today. Assessment & Plan (02/08/2021 10:46 AM GEROPSYCHOLOGIST): He notes compression fracture seen on recent [...] (07/07/2019): Added automatically from request for surgery [id number] Crohn's disease of both small and large intestin e 07/03/2019 Anemia, unspecified 06/25/2019 Assessment & Plan (12/19/2021 9:00 AM GEROPSYCHOLOGIST): Has had prior blood transfusions. Follows with [...] time. Assessment & Plan (04/02/2018 11:39 AM GEROPSYCHOLOGIST): As above, will obtain CXR. Advised to fu with PCP. Encounter for long-term (current) use of medicat ions 03/04/2018 Assessment & Plan (10/29/2024 8:53 AM CDT): Routine labs today. Continue routine eye exams. Assessment & Plan (07/09/2024 10:12 AM CDT): Routine labs today. Continue routine eye exams. Assessment & Plan (03/31/2024 10:26 AM GEROPSYCHOLOGIST): Routine labs today. Continue routine eye exams. Assessment & Plan (12/28/2023 10:14 AM GEROPSYCHOLOGIST): Routine labs today. Continue routine eye exams. [...] hydroxychloroquine Assessment & Plan (12/12/2022 9:06 AM GEROPSYCHOLOGIST): Routine labs today. Continue routine eye exams. Assessment & Plan (09/11/2022 9:27 AM CDT): Routine labs today. Continue routine eye exams. Assessment & Plan (06/19/2022 8:57 AM CDT): Routine labs today. Continue routine eye exams. Assessment & Plan (03/20/2022 2:10 PM GEROPSYCHOLOGIST): Routine labs today. Continue routine eye exams. Assessment & Plan (12/19/2021 9:00 AM GEROPSYCHOLOGIST): Routine labs today. Continue routine eye exams. Assessment & Plan (10/19/2021 9:26 AM CDT): Routine labs today. Continue routine eye exams. Assessment & Plan (08/18/2021 9:01 AM CDT): Routine labs today. Continue routine eye exams. Assessment & Plan (02/08/2021 10:46 AM GEROPSYCHOLOGIST): Routine labs today. Continue routine eye exams. Assessment & Plan (11/10/2020 10:13 AM CDT): Routine labs today. Continue routine eye exams. Assessment & Plan (08/10/2020 9:43 AM CDT): Routine labs today. Continue routine eye exams. Assessment & Plan (05/11/2020 9:13 AM CDT): Routine labs today. Continue routine eye exams. Assessment & Plan (02/13/2020 10:37 AM GEROPSYCHOLOGIST): Routine labs today. Continue routine eye exams. [...] exams. Assessment & Plan (01/14/2019 10:29 AM GEROPSYCHOLOGIST): Routine labs today. Continue routine eye exams. Assessment & Plan (10/15/2018 12:12 PM CDT): Routine labs today. Continue routine eye exams. Assessment & Plan (07/16/2018 9:52 AM CDT): Routine labs today. Continue routine eye exams. Assessment & Plan (03/04/2018 9:16 AM GEROPSYCHOLOGIST): Routine labs today. Continue routine eye exams. Hyperlipemia 11/28/2017 Insomnia 11/28/2017 GERD (gastroesophageal reflux disease) 8 Urinary retention 11/28/2017 Constipation 11/28/2017 Pseudarthrosis following spinal fusion 8 Overview (10/01/2017): Added automatically from request for surgery [id number] Scoliosis 10/01/2017 Overview (10/01/2017): Added automatically from request for surgery [id number] Spinal stenosis, lumbar wilfredo on, with neurogenic claudication 10/01/2017 Overview (10/01/2017): Added automatically from request for surgery [id number] Chills without fever 09/10/2017 Assessment & Plan (04/02/2018 11:39 AM GEROPSYCHOLOGIST): Continues to be a primary complaint for [...] time. Assessment & Plan (02/08/2021 10:46 AM GEROPSYCHOLOGIST): Status post lumbar fusion on 11/28/2017. Notes [...] benefit. Assessment & Plan (02/13/2020 10:37 AM GEROPSYCHOLOGIST): Status post lumbar fusion on 11/28/2017. Continue [...] benefit. Assessment & Plan (01/14/2019 10:29 AM GEROPSYCHOLOGIST): Status post lumbar fusion on 11/28/2017. Continues [...] surgery. Assessment & Plan (04/02/2018 11:36 AM GEROPSYCHOLOGIST): S/p lumbar fusion on 11/28/2017. Continue to follow with PM and spinal surgery. Assessment & Plan (03/04/2018 9:15 AM GEROPSYCHOLOGIST): S/p fusion on 11/28/2017 with persistent back pain and radicular symptoms down the R leg. Is scheduled to see surgeon next week. Assessment & Plan (2018 11:13 AM GEROPSYCHOLOGIST): Patient is S/p S1-T10 fusion on 11/28/2017. [...] week. Assessment & Plan (02/12/2017 12:37 PM GEROPSYCHOLOGIST): Still with ongoing low back pain which he is s/p 2 L-spine surgieries with no benefit. Follows with ortho spine. On lyrica and tizanidone with mild benefit. Assessment & Plan (01/04/2017 9:59 AM GEROPSYCHOLOGIST): Had a failed L-spine fusion last year [...] needed. Assessment & Plan (03/31/2024 10:27 AM GEROPSYCHOLOGIST): CDAI 12. Alvarado does continue note chronic [...] needed. Assessment & Plan (12/28/2023 10:15 AM GEROPSYCHOLOGIST): CDAI 14. Alvarado does continue to have [...] needed. Assessment & Plan (03/23/2023 8:59 AM GEROPSYCHOLOGIST): CDAI 15. Alvarado remains a moderate disease [...] exams. Assessment & Plan (12/12/2022 9:05 AM GEROPSYCHOLOGIST): CDAI 11. Alvarado remains a moderate disease [...] needed. Assessment & Plan (03/20/2022 2:09 PM GEROPSYCHOLOGIST): Cdai 15. Overall, joints have remained stable [...] needed. Assessment & Plan (12/19/2021 9:00 AM GEROPSYCHOLOGIST): CDAI 16. Since last visit, has increase [...] needed. Assessment & Plan (02/08/2021 10:45 AM GEROPSYCHOLOGIST): CDAI 23. Continues to have persistent joint [...] the bilateral hands with persistent reduction in portable power tool repairer strength. Synovitis does persist on exam. Does [...] exams. Assessment & Plan (02/13/2020 10:35 AM GEROPSYCHOLOGIST): CDAI 10. Overall, notes that joints remained fairly stable since last visit. Does continue to note some generalized stiffness the morning for 15-30 minutes with some reduced portable power tool repairer strength, discomfort in the hands. Does continue [...] with generalized stiffness in the morning. Reduced portable power tool repairer strength. Synovitis does persist on exam. Given [...] exams. Assessment & Plan (01/14/2019 10:30 AM GEROPSYCHOLOGIST): CDAI 6. Continues to note swelling and [...] exams. Assessment & Plan (04/02/2018 11:33 AM GEROPSYCHOLOGIST): Moderate CDAI. Patient continues to note generalized [...] Nazario. Assessment & Plan (03/04/2018 9:12 AM GEROPSYCHOLOGIST): Moderate CDAI. Patient has noted increased pain [...] below. Assessment & Plan (2018 11:11 AM GEROPSYCHOLOGIST): Moderate CDAI. Continues to have pain and [...] months. Assessment & Plan (02/12/2017 9:02 AM GEROPSYCHOLOGIST): Remains stable on current regimen. Has occasional [...] months. Assessment & Plan (01/04/2017 9:56 AM GEROPSYCHOLOGIST): Still with some stiffness in hands and [...] prior. Assessment & Plan (04/02/2018 11:35 AM GEROPSYCHOLOGIST): Continues to have some amandeep 1st mtp joint pain (L>R). 50% improvement in L 1st mtp joint with US guided steroid injection after last visit. L CMC joint painful at times as well. Rediscussed PT for bracing, although patient again defers. No benefit with Pennsaid. In need of L TKA. Will be considering in the near future. Assessment & Plan (03/04/2018 9:14 AM GEROPSYCHOLOGIST): Major complaint today is bilateral 1st MTP [...] replacement. Assessment & Plan (2018 11:12 AM GEROPSYCHOLOGIST): Patient is in need of a left [...] issue. Assessment & Plan (02/12/2017 9:03 AM GEROPSYCHOLOGIST): Has increased pain in left knee and is scheduled to have L TKR in april. Pt to hold MTX 2 weeks before and 2 weeks after surgery. Assessment & Plan (01/04/2017 10:00 AM GEROPSYCHOLOGIST): Symptoms worse in knees L>R. Pt reports [...] Encounters Date Type Department Care Team Description 12/01/2024 9:22 AM CDT - 12/01/2024 11:59 PM CDT Hospital Encounter [facility] [address] [facility] [address] [place] [id number] Zoe Zavala MD Sacroiliitis (Primary Dx); Rheumatoid arthritis involving multiple sites with positive rheumatoid factor (HCC); Chronic use of opiate drug for therapeutic purpose; Post laminectomy syndrome Discharge Disposition: Discharge to home or self care 10/30/2024 Results Follow-Up [facility] [address] [place] [address] Jef Sebastian PA Erythrocyte sedimentation rate, CRP (acute phase), Comprehensive metabolic panel, CBC with auto differential 10/29/2024 8:30 AM CDT Office Visit [facility] [address] [place] [address] Jef Sebastian PA Rheumatoid arthritis involving multiple sites with positive rheumatoid factor (HCC) (Primary Dx); Chronic bilateral low back pain with left-sided sciatica; Encounter for long-term (current) use of medications [...] - 02/04/2015 Carpal tunnel release SPINAL FUSION 2016 L3-4, 2016 L3-5 KNEE ARTHROSCOPY ROTATOR CUFF [...] on file Legal Sex Male 11:58 PM GEROPSYCHOLOGIST Gender Identity Male 01/14/2020 12:17 PM GEROPSYCHOLOGIST Sexual Orientation Straight 05/31/2019 8: 40 AM CDT Last Filed Vital Signs Vital Sign Reading Time Taken Comments Blood Pressure 160/82 12/01/2024 11:47 AM CDT Pulse 65 12/01/2024 11:47 AM CDT Temperature 36.5 C (97.7 F) 12/01/2024 9:56 AM CDT Respiratory Rate 14 12/01/2024 11:47 AM CDT Oxygen Saturation 100% 12/01/2024 11:39 AM CDT Inhaled Oxygen Concentration - - Weight 90.7 kg (200 lb) 12/01/2024 9:56 AM CDT Height 177.8 cm (5' 10) 12/01/2024 9:56 AM CDT Body Mass Index 28.7 12/01/2024 9:56 AM CDT Plan of Treatment Health Maintenance Due Date Last Done Comments Depression Screening 1955 Hepatitis C Screening 1955 Hepatitis B Screening 01/04/1972 Zoster Vaccine (1 of 2) 1973 Well Visit 65+ 2019 Fall Risk Assessment 10/09/2020 10/10/2019 DTaP/Tdap/Td Vaccine (2 - Td or Tdap) 12/20/2023 12/19/2013 Covid-19 Vaccine (6 - 2024-2 6 season) 2024 11/12/2021, 05/23/2021, 10/06/2020, Additional history exists Colon Cancer Screening-Colonoscopy 06/16/2029 06/17/2019 Prostate Cancer Screening-PSA Discontinued 05/03/2015 Colon Cancer Screening-CT Colonography Discontinued 06/17/2019 Colon Cancer Screening-DNA Stool Discontinued 06/17/19 Colon Cancer Screening-FIT Discontinued 06/17/2019 Colon Cancer Screening-Sigmoidoscopy Discontinued 06/17/2019 Pneumococcal vaccine 65+ Completed 08/24/2021, 11/05 Influenza Vaccine Completed 11/05/2024, , 12/05/2020, Additional history exists Goals Goal Patient Goal Type Associated Problems Recent Progress Patient-Stated? Author CCM Chronic Pain Care Plan Chronic Care Management On track(2024 10:18 AM CDT) Alexsandra Stoddard, IVELISSE Note: Problem: Chronic Pain Goals: 1. Minimize further functional decline 2. Maximize quality of life 3. Control pain Strategies: - Activity/exercise program recommendation - Conservative stepwise pain medicine strategy with multi-disciplinary approach - Recommend healthy lifestyle strategies and compensatory methods as needed Medical Devices Implanted Type Area Warrant Server Device Identifier Shelf Expiration Date Model / Serial / Lot Medtronic Sofamor Danek [id number] Infuse 18mm 26mm Absorbable Sponge Sterile Water Syringe Needle - [id number] Implanted:Qty: 1 on 11/28/2017 by Jef Calvo MD at [facility] Medtronic Sofamor Danek 08/05/2018 [id number] / / [id number] Depuy Spine [id number] Expedium 6.5mm 50mm Polyaxial Spine Screw Bone Titanium 5.5mm Arian - [id number] Implanted:Qty: 8 on 11/28/2017 by Jef Calvo MD at [facility] N/A: Spine Lumbar Depuy Spine [id number] / / Depuy Spine [id number] Expedium 6.5mm 60mm Polyaxial Spine Screw Bone Titanium 5.5mm Arian - [id number] Implanted:Qty: 2 on 11/28/2017 by Jef Calvo MD at [facility] N/A: Spine Lumbar Depuy Spine [id number] / / Depuy Spine [id number] Expedium 7.5mm 60mm 1 Innie Polyaxial Spine Thoracolumbar Screw - [id number] Implanted:Qty: 1 on 11/28/2017 by Jef Calvo MD at [facility] N/A: Spine Lumbar Depuy Spine [id number] / / Depuy Spine [id number] Expedium 8mm 60mm Polyaxial Spine Screw Bone Titanium - [id number] Implanted:Qty: 1 on 11/28/2017 by Jef Calvo MD at [facility] N/A: Spine Lumbar Depuy Spine [id number] / / Depuy Spine [id number] Expedium 9mm 50mm Polyaxial Spine Screw Bone Titanium - [id number] Implanted:Qty: 2 on 11/28/2017 by Jef Calvo MD at [facility] N/A: Spine Lumbar Depuy Spine [id number] / / Depuy Spine [id number] Expedium 9mm 55mm Polyaxial Spine Screw Bone Titanium - [id number] Implanted:Qty: 1 on 11/28/2017 by Jef Calvo MD at [facility] Depuy Spine [id number] / / Depuy Spine [id number] Expedium 9mm 55mm Polyaxial Spine Screw Bone Titanium - [id number] Implanted:Qty: 1 on 11/28/2017 by Jef Calvo MD at [facility] Depuy Spine [id number] / / Depuy Screw Implanted:Qty: 1 on 11/28/2017 by Jef Calvo MD at [facility] N/A: Spine Lumbar Depuy Spine [id number] / / Medtronic Sofamor Danek [id number] Infuse 18mm 26mm Absorbable Sponge Sterile Water Syringe Needle - [id number] Implanted:Qty: 1 on 11/28/2017 by Jef Calvo MD at [facility] Medtronic Sofamor Danek 08/05/2018 [id number] / / [id number] Medtronic Sofamor Danek [id number] Infuse 18mm 26mm Absorbable Sponge Sterile Water Syringe Needle - [id number] Implanted:Qty: 1 on 11/28/2017 by Jef Calvo MD at [facility] Medtronic Sofamor Danek 08/05/2018 [id number] / / [id number] [employer] [id number] Acupac Allograft Aseptic Frozen Graft 50cc Bone Cancellous Bone - [id number] - [id number] Implanted:Qty: 1 on 11/28/2017 by Jef Calvo MD at [facility] N/A: Spine Lumbar [employer] 08/02/2019 [id number] / [id number] / Tissue Acupac 100cc Aseptic 1mm To 4mm - [id number] - [id number] Implanted:Qty: 1 on 11/28/2017 by Jef Calvo MD at [facility] N/A: Spine Lumbar [employer] 05/31/2019 [id number] / [id number] / Depuy Spine [id number] Expedium 1 Inner Monoaxial Spine Screw Set Titanium - [id number] Implanted:Qty: 18 on 11/28/2017 by Jef Calvo MD at [facility] N/A: Spine Lumbar Depuy Spine [id number] / / Depuy Spine [id number] Expedium Viper 2 5.5mm 480mm Straight Arian Spinal - [id number] Implanted:Qty: 2 on 11/28/2017 by Jef Calvo MD at [facility] N/A: Spine Lumbar Depuy Spine [id number] / / Depuy Spine [id number] Expedium Viper 9mm 80mm Polyaxial Spine Sacral Alar Iliac Screw - [id number] Implanted:Qty: 1 on 11/28/2017 by Jef Calvo MD at [facility] N/A: Spine Lumbar Depuy Spine [id number] / / Depuy Spine [id number] Expedium Viper 9mm 100mm Polyaxial Spine Sacral Alar Iliac Screw - [id number] Implanted:Qty: 1 on 11/28/2017 by Jef Calvo MD at [facility] N/A: Spine Lumbar Depuy Spine [id number] / / Procedures Procedure Name Priority Date/Time Associated Diagnosis Comments PAIN MGMT IMAGING SI JOINT BILATERAL ARTHROGRPHY Schedule Routine, Read Routine (OP Routine) 12/01/2024 11:41 AM CDT Sacroiliitis CBC WITH AUTO DIFFERENTIAL Routine 10/29/2024 9:02 AM CDT Rheumatoid arthritis involving multiple sites with positive rheumatoid factor (HCC) Encounter for long-term (current) use of medications COMPREHENSIVE METABOLIC PANEL Routine 10/29/2024 9:02 AM CDT Rheumatoid arthritis involving multiple sites with positive rheumatoid factor (HCC) Encounter for long-term (current) use of medications CRP (ACUTE PHASE) Routine 10/29/2024 9:0 2 AM CDT Rheumatoid arthritis involving multiple sites with positive rheumatoid factor (HCC) Encounter for long-term (current) use of medications ERYTHROCYTE SEDIMENTATION RATE Routine 10/29/2024 9:02 AM CDT Rheumatoid arthritis involving multiple sites with positive rheumatoid factor (HCC) Encounter for long-term (current) use of medications COLONOSCOPY 06/17/2019 3:21 PM CDT PSA SCREEN Routine 05/03/2015 8:31 AM CDT from Last 3 Months or Most Recently Relevant to Health Maintenance Results * Imaging SI Joint Injection Bilateral ([id number]) (12/01/2024 11:41 AM CDT) Narrative [facility] - 12/01/2024 11:42 AM CDT The images from this study are not interpreted by Radiology. Please refer to the physician's procedure / OR operative note. us Zoe Zavala MD IMG PAIN MGMT PROCEDURES F inal Result [facility] * (ABNORMAL) CBC with auto differential (10/29/2024 9:02 AM CDT) WBC 3.3(L) 3.8 - 10.8 Thousand/u L [facility] RBC, POC 4.24 4.20 - 5.80 Million/uL [facility] Hgb 13.9 13.2 - 17.1 g/dL [facility] Hct 42.0 38.5 - 50.0 % [facility] MCV 99.1 80.0 - 100.0 fL [facility] MCH 32.8 27.0 - 33.0 pg [facility] MCHC 33.1 32.0 - 36.0 g/dL [facility] Comment: For adults, a slight decrease in the calculated MCHC value (in the range of 30 to 32 g/dL) is most likely not clinically significant; however, it should be interpreted with caution in correlation with other red cell parameters and the patient's clinical condition. Rdw 13.1 11.0 - 15.0 % [facility] Platelets 220 140 - 400 Thousand/u L [facility] MPV 9.8 7.5 - 12.5 fL [facility] Neutrophils, abs 1,924 1,500 - 7,800 cells/uL [facility] Lymphocytes, abs 693(L) 850 - 3,900 cells/uL [facility] Monocyte abs 554 200 - 950 cells/uL [facility] Eosinophils, abs 79 15 - 500 cells/uL [facility] Basophils, abs 50 0 - 200 cells/uL [facility] Neutrophils 58.3 % [facility] Lymphocyte pct 21.0 % [facility] Monocytes 16.8 % [facility] Eosinophils 2.4 % [facility] Basophils 1.5 % [facility] Blood 10/29/2024 9:02 AM CDT 10/29/2024 9:02 AM CDT Jef PUTNAM LAB BLOOD ORDERABLES Fi nal Result Performing Organization Address City/[facility]/ZIP Co de Phone Number QUEST [facility] [address] [place] [address] * Erythrocyte sedimentation rate (10/29/2024 9:02 AM CDT) Erythrocyte sedimentation rate 2 < OR = 20 mm/h [facility] Blood 10/29/2024 9:02 AM CDT 10/29/2024 9:02 AM CDT Jef PUTNAM LAB BLOOD ORDERABLES Fi nal Result Performing Organization Address [facility] Co de Phone Number QUEST [facility] [address] [place] [address] * CRP (acute phase) (10/29/2024 9:02 AM CDT) C-RP <3.0 <8.0 mg/L [facility] Blood 10/29/2024 9:02 AM CDT 10/29/2024 9:02 AM CDT Jef PUTNAM LAB BLOOD ORDERABLES Fi nal Result Performing Organization Address [facility] Co de Phone Number QUEST [facility] [address] [place] [address] * (ABNORMAL) Comprehensive metabolic panel (10/29/2024 9:02 AM CDT) Pathologist [facility] Glucose 106(H) 65 - 99 mg/dL [facility] Comment: Fasting reference interval For someone without known diabetes, a glucose value between 100 and 125 mg/dL is consistent with prediabetes and should be confirmed with a follow-up test. BUN 10 7 - 25 mg/dL [facility] Creatinine 1.08 0.70 - 1.28 mg/dL [facility] eGFR 74 > OR = 60 mL/min/1.7 3m2 [facility] BUN/creat ratio SEE NOTE: 6 - 22 (calc) [facility] Comment: Not Reported: BUN and Creatinine are within reference range. Sodium 134(L) 135 - 146 mmol/L [facility] Potassium, pl 4.9 3.5 - 5.3 mmol/L [facility] Chloride 98 98 - 110 mmol/L [facility] CO2 30 20 - 32 mmol/L [facility] Calcium 9.5 8.6 - 10.3 mg/dL [facility] Protein, sr 6.5 6.1 - 8.1 g/dL [facility] Albumin 4.5 3.6 - 5.1 g/dL [facility] GLOBULIN 2.0 1.9 - 3.7 g/dL (calc) [facility] Alb/glob ratio 2.3 1.0 - 2.5 (calc) [facility] Bilirubin, total 0.7 0.2 - 1.2 mg/dL [facility] Alk phos 69 35 - 144 U/L [facility] AST 24 10 - 35 U/L [facility] ALT (SGPT) 14 9 - 46 U/L [facility] Blood 10/29/2024 9:02 AM CDT 10/29/2024 9:02 AM CDT us Jef [facility] LAB BLOOD ORDERABLES Fi nal Result [facility] [address] [id number] * COLONOSCOPY (06/17/2019 3:21 PM CDT) Anatomical Region Laterality Modality Other Narrative Procedure Note Pepe Castorena MD - 06/17/2019 3:21 PM CDT [facility] ENDOSCOPY [facility] Patient Name: Tyler Ferrara Procedure Date: 06/17/2019 3:21 PM Date of : 1955 Admit Type: Outpatient Age: 64 Gender: Male Attending MD: Pepe Castorena M.D. Room: [facility] ENDOSCOPY ROOM 3 Note Status: Finalized Procedure: [...] was passed under direct vision.The PCF [id number] endoscope was introduced throughthe anus with the intention of advancing to the cecum.The scope was advanced to the transverse colon beforethe procedure was aborted. Medications were given. The colonoscopy was performed without difficulty. The patient tolerated the procedure well. The quality of the bowel preparation was evaluated using the BBPS ([facility] Bowel Preparation Scale) with scores of:Right Colon [...] On: 06/17/2019 3:21 PM Recognized by the [employer] for promoting quality in endoscopy us Pepe Castorena MD ENDOSCOPY PROCEDURES Fi nal [...] or absence of disease. Test performed at [employer] [address] [facility] [place] [address] Director: SULTANA HARVEY DO,MPH 05/03/2015 8:31 AM CDT Billy Khan MD LAB BLOOD ORDERABLES Final Resul t [facility] HISTORICAL RESULTS from Last 3 Months or Most Recently Relevant to Health Maintenance Additional Health Concerns Infection Onset Date Last Indicated COVID19 Comment:01/17/2020 03/15/2020 03/14/2020 Insurance [facility] AETNA MEDICARE GOLD AETNA MEDICARE GOLD [facility] Advance Directives For more information, please contact: [phone] * Full Code (Latest Code Status on [...] 7:12 AM 09/11/2019 1:25 PM Care Teams Crane Service Technician Relationship Specialty Start Date End Date Rafy Camilo DO [address] [place] [address] PCP - General Internal Medicine 03/27/24 Kale Rsoe MD [address] [place] [address] 02/18/20 Eliseo Nazario MD [address] [place] [address] Rheumatology 01/04/17 Apolonia Schmitz, RN Registered Nurse 11/18/18 Ezekiel Key MD Referring Physician Gastroenterology 04/28/19 Zoe Zavala MD [address] [facility] [address] [facility] [phone] [place] [address] Anesthesiologist Pain Management 10/13/20 Mery Lechuga OD [address] [place] [address] Optometry 10/19/21 Navneet Rodriguez MD [address] [facility] [address] [place] [address] Referring Physician Hematology 12/20/21
--- OUTSIDE RECORDS SUMMARY | 2025-01-07 11:28 | XMS_ITS | Encounter Summary ---
Author Organization [facility] Address [address] [place] [address] Care Team Providers Care Financial Sales Professional Name Role Phone Kale Rose MD Primary Care Provider + [phone] Kale Rose MD Unavailable [phone] Eliseo Nazario MD Unavailable +[phone] Apolonia Schmitz RN Unavailable Unavailab Ezekiel Mckinney MD Unavailable [phone] Zoe Zavala MD Unavailable [phone] Mery Lechuga OD Unavailable [phone] Navneet Rodriguez MD Unavailable [phone] Rafy Camilo DO Primary Care Provider [phone] Reason for Visit * Reason Onset Date Comments PMC Preprocedure 07/20/2023 Encounter Details Date Type Department Care Team (Late st Contact Info) Description 07/20/2023 Telephone [facility] [place] [facility] [address] [facility] Advanced Medicine [address] [place], [place] [id number] Zoe Zavala MD [address] [facility] [phone] [place] [address] PMC Preprocedure Social History Tobacco Use Types [...] on file Legal Sex Male 11:58 PM DIE REAMER Gender Identity Male 01/14/2020 12:17 PM DIE REAMER Sexual Orientation Straight 05/31/2019 8: 40 AM CDT documented as of this encounter Plan of Treatment Not on file documented as of this encounter Goals Goal Patient Goal Type Associated Problems Recent Progress Patient-Stated? Author CCM Chronic Pain Care Plan Chronic Care Management On track(2024 10:18 AM CDT) No Alexsandra Zhang RN Note: Problem: [...] as of this encounter Care Teams Financial Sales Professional Relationship Specialty Start Date End Date Kale Rose MD [address] [facility] 120 [place] [address] PCP - General 02/18/20 03/26/24 Rafy Camilo DO [address] [place] [address] PCP - General Internal Medicine 03/27/24 Kale Rose MD [address] [place], [place] [id number] 02/18/20 Eliseo Nazario MD [address] [place] [address] Rheumatology 01/04/17 Apolonia Schmitz RN Registered Nurse 11/18/18 Ezekiel Key MD Referring Physician Gastroenterology 04/28/19 Zoe Zavala MD [address] [place] [address] [facility] [phone] [place] [address] Anesthesiologist Pain Management 10/13/20 Mery Lechuga OD [address] [place] [address] Optometry 10/19/21 Navneet Rodriguez MD [address] [facility] [address] [place] [address] Referring Physician Hematology 12/20/21 documented as of this encounter
--- OUTSIDE RECORDS SUMMARY | 2025-01-07 11:28 | XMS_ITS | Encounter Summary ---
Author Organization [facility] Address [address] [place] [address] Care Team Providers Care Electrophysiology Technician Name Role Phone Kale Rose DO Primary Care Provider Encounter Details Date Type Department Care Team (Late st Contact Info) Description 07/18/2024 Lab Requisition [facility] - DermPath Lab [address] [facility], [place] [phone] Jovany Vaughn MD [facility] DERMATOLOGY [address] [place] [address] Neoplasm of uncertain behavior of skin Social History Tobacco Use Types Packs/Day Years Used Date Smoking Tobacco: Never Assessed Sex and Gender Information Value Date Recorded Sex Assigned at Not on file Legal Sex Male 10:14 AM DISPENSING AUDIOLOGIST Gender Identity Not on file Sexual Orientation Not on file documented as of this encounter Plan of Treatment Not on file documented as of this encounter Procedures Procedure Name Priority Date/Time Associated Diagnosis Comments DERMATOPATHOLOGY Routine 07/18/2024 12:0 0 AM CDT Neoplasm of uncertain behavior of skin documented in this encounter Results * DERMATOPATHOLOGY (07/18/2024 12:00 AM CDT) Case Report Dermatopathology Report Case: [id number] Authorizing Provider: Jovany Vaughn MD Collected: 07/18/2024 [...] determined by the Dermatopathology Laboratory at [facility], directed by Dr. Vaughn Harley. These tests need not be, and therefore are not, approved by the [place] Food and Drug Administration. The tests are used for clinical purposes. Billing Codes Specimen Charges Stain Charges 12708 1 2:24 PM CDT DERMATOPATHOLOGY LABORATORY Embedded Images 2:24 PM CDT DERMATOPATHOLOGY LABORATORY Pathology/Cytolog y TISSUE SPECIMEN FROM SKIN / Unknown 07/18/2024 07/21/2024 10:58 AM CDT Jovany Vaughn MD LAB - PATHOLOGY/CYTOLOGY ORDE TRACEY Final Result DERMATOPATHOLOGY LABORATORY [facility] - Department of Dermatology [address], [address] [phone] documented in this encounter Visit Diagnoses Diagnosis Neoplasm of uncertain behavior of skin documented in this encounter Care Teams Electrophysiology Technician Relationship Specialty Start Date End Date Kale Rose DO [address] [facility] [address] [facility] 21 [place] [address] PCP - General Internal Medicine 01/11/15 documented as of this encounter
--- OUTSIDE RECORDS SUMMARY | 2025-01-07 11:28 | XMS_ITS | Clinical Summary ---
Author Organization [facility] Address [facility] [place] [address] Phone Care Team Providers Care Bio Medical Technician Name Role Phone Rafy Camilo Primary Care Provider [phone] Allergies No known active allergies Medications EZETIMIBE [...] mouth. Active fluticasone propionate (FLONASE) 50 mcg/spray Mcguffey, Suspension nasal inhaler INSTILL 2 SPRAYS INTO [...] Encounters Date Type Department Care Team Description 11/11/2024 External Device Data STL ABSTRACTION Provider, Abstract 10/14/2024 External Device Data STL ABSTRACTION Provider, Abstract [...] on file Legal Sex Male 6:05 AM MECHANICAL SYSTEMS ENGINEER Gender Identity Not on file Sexual Orientation Not on file Last Filed Vital Signs Vital Sign Reading Time Taken Comments Blood Pressure 135/87 01/14/2024 9:43 AM MECHANICAL SYSTEMS ENGINEER Pulse 65 01/14/2024 9:43 AM MECHANICAL SYSTEMS ENGINEER Temperature 36.4 C (97.5 F) 01/14/2024 9:43 AM MECHANICAL SYSTEMS ENGINEER Respiratory Rate 16 01/14/2024 9:43 AM MECHANICAL SYSTEMS ENGINEER Oxygen Saturation 96% 01/14/2024 9:43 AM MECHANICAL SYSTEMS ENGINEER Inhaled Oxygen Concentration - - Weight 91.5 kg (201 lb 12.8 oz) 01/14/2024 9:43 AM MECHANICAL SYSTEMS ENGINEER Height 177.8 cm (5' 10) 06/27/2021 9:08 AM CDT Body Mass Index 28.96 06/27/2021 9:08 AM CDT Plan of Treatment Upcoming Encounters Date Type Department Care Team (Late st Contact Info) Description 01/13/2025 10:00 AM MECHANICAL SYSTEMS ENGINEER Office Visit [facility] Oncology and Hematology - [place] [address] [facility] [address] [place] [address] Navneet Rodriguez MD [address] [facility] [address] [place] [address] Health Maintenance Due Date Last Done Comments PNEUMOCOCCAL VACCINE 50+ YEA RS (1 of 2 - PCV) 1973 ZOSTER VACCINE (1 of 2) 1973 FIT-DNA Q 3 years 1999 FIT/FOBT Q 1 year 1999 Flex Sig/CT Colonography Q 5 years 1999 RSV VACCINE (60+ or ) (1 - Risk 50-74 years 1-dose series) 01/04/2004 COVID-19 Vaccine (3 - Modern a risk series) 05/27/2020 04/29/2020, 04/01/2020 DTAP/TDAP/TD VACCINES (2 - T d or Tdap) 12/20/2023 12/19/2013 Medicare Advantage (SD) Preventative Visit/Annual Wellness Visit 02/06/2024 INFLUENZA VACCINE (#1) 2024 , 10/17/2019, 11/04/2018, Additional history exists COLORECTAL SCREENING 06/16/2029 06/17/2019, 06/17/19 20 Colorectal Cancer Screening 06/16/2029 Insurance AETNA O MCR Care Teams Bio Medical Technician Relationship Specialty Start Date End Date Rafy Camilo DO [address] [facility] [address] [place] [address] PCP - General Internal Medicine 01/14/24
--- OUTSIDE RECORDS SUMMARY | 2025-01-07 11:28 | XMS_ITS | Encounter Summary ---
Author Organization [facility] Healthcare Address [address] [place] [address] Care Team Providers Care Outside Food Server Name Role Phone Kale Rose MD Primary Care Provider + [phone] Kale Rose MD Primary Care Provider + [phone] Kale Rose MD Unavailable [phone] Eliseo Nazario MD Unavailable [phone] Apolonia Schmitz RN Unavailable Unavailab Ezekiel Mckinney MD Unavailable [phone] Zoe Zavala MD Unavailable [phone] Mery Lechuga OD Unavailable [phone] Navneet Rodriguez MD Unavailable [phone] Rafy Camilo DO Primary Care Provider [phone] Encounter Details Date Type Department Care Team (Late st Contact Info) Description 11/18/2018 Documentation [facility] [address] [facility] Advanced Medicine [address] [place], [place] [id number] Margaret Saldivar MD [address] [place] [address] Social History Tobacco Use Types Packs/Day Years Used Date Smoking Tobacco: Never Smokeless Tobacco: Never Alcohol Use Standard Drinks/Week Comments Yes 0 (1 standard drink = 0.6 oz pur e alcohol) 1 drink per week Sex and Gender Information Value Date Recorded Sex Assigned at Not on file Legal Sex Male 11:58 PM IMPORT CUSTOMS CLEARING AGENT Gender Identity Male 01/14/2020 12:17 PM IMPORT CUSTOMS CLEARING AGENT Sexual Orientation Straight 05/31/2019 8: 40 AM CDT documented as of this encounter Functional Status documented as of this encounter Plan of [...] documented as of this encounter Care Teams Outside Food Server Relationship Specialty Start Date End Date Kale Rose MD [address] [place] [address] PCP - General 05/05/16 02/17/20 Kale Rose MD [address] [place] [address] PCP - General 02/18/20 03/26/24 Rafy Camilo DO [address] [place] [address] PCP - General Internal Medicine 03/27/24 Kale Rose MD [address] [place] [address] 02/18/20 Eliseo Nazario MD [address] [place] [address] Rheumatology 01/04/17 Apolonia Schmitz, RN Registered Nurse 11/18/18 Ezekiel Key MD Referring Physician Gastroenterology 04/28/19 Zoe Zavala MD [address] [facility] [address] [facility] [phone] [place] [address] Anesthesiologist Pain Management 10/13/20 Mery Lechuga OD [address] [place] [address] Optometry 10/19/21 Navneet Rodriguez MD [address] [place] [address] Referring Physician Hematology 12/20/21 documented as of this encounter
--- OUTSIDE RECORDS SUMMARY | 2025-01-07 11:28 | XMS_ITS | Encounter Summary ---
Author Organization [facility] Healthcare Address [address] [place] [address] Care Team Providers Care Timber Girdler Name Role Phone Kale Rsoe MD Primary Care Provider + [phone] Kale Rose MD Unavailable [phone] Eliseo Nazario MD Unavailable [phone] Apolonia Schmitz RN Unavailable Unavailab Ezekiel Mckinney MD Unavailable Zoe Zavala MD Unavailable [phone] Mery Lechuga OD Unavailable [phone] Navneet Rodriguez MD Unavailable [phone] Rafy Camilo DO Primary Care Provider [phone] Encounter Details Date Type Department Care Team (Late st Contact Info) Description 05/30/2022 Telephone [facility] at the [place] [facility] [address] [facility] Advanced Medicine [address] [place], [place] [id number] Zoe Zavala MD [address] [facility] [phone] [place] [address] Social History Tobacco Use Types Packs/Day Years [...] on file Legal Sex Male 11:58 PM COTTON HEADER Gender Identity Male 01/14/2020 12:17 PM COTTON HEADER Sexual Orientation Straight 05/31/2019 8: 40 AM [...] documented as of this encounter Care Teams Timber Girdler Relationship Specialty Start Date End Date Kale Rose MD [address] [facility] 120 [place] [address] PCP - General 02/18/20 03/26/24 Rafy Camilo DO [address] [facility] [address] [place] [address] PCP - General Internal Medicine 03/27/24 Kale Rose MD [address] [facility] [address] [place] [address] 02/18/20 Eliseo Nazario MD [address] [place] [address] Rheumatology 01/04/17 Apolonia Schmitz, RN Registered Nurse 11/18/18 Ezekiel Key MD Referring Physician Gastroenterology 04/28/19 Zoe Zavala MD [address] [facility] [address] [facility] [phone] [place] [address] Anesthesiologist Pain Management 10/13/20 Mery Lechuga OD [address] [place] [address] Optometry 10/19/21 Navneet Rodriguez MD [address] [facility] [address] [place] [address] Referring Physician Hematology 12/20/21 documented as of this encounter
--- OUTSIDE RECORDS SUMMARY | 2025-01-07 11:28 | XMS_ITS | Clinical Summary ---
Author Organization [facility] Address [address] [place] [address] Phone Care Team Providers Care Wine Cellar Stock Clerk Name Role Phone Unavailable Primary Care Provider Unavailabl e Social History Tobacco Use Types Packs/Day Years Used Date Smoking Tobacco: Never Assessed Sex and Gender Information Value Date Recorded Sex Assigned at Not on file Legal Sex Male 12:53 PM ODD BUNDLE WORKER Gender Identity Not on file Sexual Orientation Not on file Plan of Treatment Health Maintenance Due Date Last Done Comments Hepatitis C Virus (HCV) Screening 1955 TdaP Immunization 1955 Cologuard 1999 Colonoscopy 1999 Colorectal Cancer Screening 1999 Immunochemical Fecal Occult Blood 1999 Pneumococcal Immunization (5 0+ years) (1 of 1 - PCV) 01/04/2004 Zoster Immunization (1 of 2) 01/04/2004 Influenza Immunization (#1) 2024 SARS-COV-2 Immunization ( - season) 2024 Respiratory Syncytial Virus (RSV) Immunization (Adult) [...]
--- OUTSIDE RECORDS SUMMARY | 2025-01-07 11:28 | XMS_ITS | Encounter Summary ---
Author Organization [facility] Healthcare Address [address] [place] [address] Care Team Providers Care Automotive Parts Counter Associate Name Role Phone Kale Rose MD Primary Care Provider + [phone] Kale Rose MD Primary Care Provider + [phone] Kale Rose MD Unavailable [phone] Eliseo Nazario MD Unavailable [phone] Apolonia Schmitz RN Unavailable Unavailab Ezekiel Mckinney MD Unavailable [phone] Zoe Zavala MD Unavailable [phone] Mery Lechuga OD Unavailable [phone] Navneet Rodriguez MD Unavailable [phone] Rafy Camilo DO Primary Care Provider [phone] Reason for Visit * Reason Onset Date Comments Appointment 02/07/2019 Encounter Details Date Type Department Care Team (Late st Contact Info) Description 02/07/2019 Telephone [facility] [place] [facility] [address] [facility] Advanced Medicine [address] [place] [address] Zoe Zavala MD [address] [facility] [phone] [place], [place] [id number] Appointment Social History Tobacco Use Types Packs/Day Years Used Date Smoking Tobacco: Never Smokeless Tobacco: Never Alcohol Use Standard Drinks/Week Comments Yes 0 (1 standard drink = 0.6 oz pur e alcohol) 1 drink per week Sex and Gender Information Value Date Recorded Sex Assigned at Not on file Legal Sex Male 11:58 PM XEROX MACHINE OPERATOR Gender Identity Male 01/14/2020 12:17 PM XEROX MACHINE OPERATOR Sexual Orientation Straight 05/31/2019 8: 40 AM [...] documented as of this encounter Care Teams Automotive Parts Counter Associate Relationship Specialty Start Date End Date Kale Rose MD [address] [place] [address] PCP - General 05/05/16 02/17/20 Kale Rose MD [address] [place] [address] PCP - General 02/18/20 03/26/24 Rafy Camilo DO [address] [facility] [address] [place] [address] PCP - General Internal Medicine 03/27/24 Kale Rose MD [address] [place] [address] 02/18/20 Eliseo Nazario MD [address] [place] [address] Rheumatology 01/04/17 Apolonia Schmitz, RN Registered Nurse 11/18/18 Ezekiel Key MD Referring Physician Gastroenterology 04/28/19 Zoe Zavala MD [address] [facility] [address] [facility] [phone] [place] [address] Anesthesiologist Pain Management 10/13/20 Mery Lechuga OD [address] [place] [address] Optometry 10/19/21 Navneet Rodriguez MD [address] [place] [address] Referring Physician Hematology 12/20/21 documented as of this encounter
[2025-01-07 12:14] LABS: Iron 149 ug/dL (49-181)
[2025-01-07 12:18] LABS: Anion Gap 2 mmol/L (4-12); Blood Urea Nitrogen 13 mg/dL (9-20); Calcium 9.2 mg/dL (8.4-10.2); Carbon Dioxide 28 mmol/L (22-30); Chloride 100 mmol/L (98-107); Estimated Glomerular Filt Rate > 60; Glucose 114 mg/dL (65-110); Potassium 4.5 mmol/L (3.4-5.0); Sodium 130 mmol/L (137-145)
[2025-01-07 12:23] LABS: Percent Iron Saturation 57 % (20-50)
[2025-01-07 12:55] LABS: Ferritin 92.70 ng/mL (11.1-264)
[2025-01-07 13:12] LABS: Vitamin B12 610.0 pg/mL (239-931)
== END 2025-01-07 10:14 | disposition home or self-care (01) ==
LOC: ANHLAB 10:14
PROVIDERS: PCP Internal Medicine; Visit Provider Internal Medicine Hematology & Oncology
DX: D64.9 Anemia, unspecified (principal)
CPT/HCPCS: 36415; 80048; 82607; 82728; 83540; 83550; 85025